=== PATIENT | female | born 1935 | race Caucasian/White ===

== ENCOUNTER 2017-02-27 21:34 | Emergency (ER) | payer MEDICARE, BC ==
[2017-02-27 21:40] VITALS: RESP 18
[2017-02-27] MEDS ORDERED: DIPH,PERTUS(ACELL)TETVAC-LF 0.5 ML VIAL IM ONE (22:36)
--- NOTE | 2017-02-27 22:37 | ED ---
General Adult HPI - General Chief complaint: Fall Stated complaint: Fall Time Seen by Provider: 02/27/17 22:07 Source: patient, family, RN notes reviewed Mode of arrival: EMS Limitations: no limitations - History of Present Illness Initial comments: Chief complaint history of present illness this 81-year-old female reports that she tripped over her cat at home. Falling on her face, no loss of consciousness mild nausea no vomiting. Mild frontal headache. She she did have epistaxis which eventually stopped on its own. - Related Data Home Medications Medication Instructions Recorded Confirmed Aspirin 81 mg PO DAILY 06/25/14 02/27/17 Atenolol [Tenormin] 25 mg PO DAILY 06/25/14 02/27/17 Atorvastatin [Lipitor] 40 mg PO HS 06/25/14 02/27/17 Budesonide-Formot 160-4.5 Mcg 2 puff INHALATION RT-DAILY 06/25/14 02/27/17 [Symbicort 160-4.5 Mcg Inhaler] Carisoprodol [Soma] 350 mg PO Q4-6H PRN 06/25/14 02/27/17 Dicyclomine [Bentyl] 10 mg PO BID PRN 06/25/14 02/27/17 Gabapentin [Neurontin] 300 mg PO QID 06/25/14 02/27/17 Isosorbide Mononitrate [Imdur] 30 mg PO DAILY 06/25/14 02/27/17 Lisinopril 40 mg PO DAILY 06/25/14 02/27/17 Multivitamins, Thera [Multivitamin 1 tab PO DAILY@1200 06/25/14 02/27/17 (formulary)] Prochlorperazine [Compazine] 5 mg PO Q8HR PRN 06/25/14 02/27/17 amLODIPine [Norvasc] 5 mg PO DAILY 06/25/14 02/27/17 Acetaminophen [Tylenol Arthritis] 1,300 mg PO Q8H PRN 06/24/16 02/27/17 Acetaminophen/Diphenhydramine 1 tab PO HS PRN 06/24/16 02/27/17 [Tylenol PM 500-25mg] Calcium Carbonate [Calcium] 600 mg PO DAILY 06/24/16 02/27/17 Cholecalciferol [Vitamin D3] 1,000 unit PO DAILY 06/24/16 02/27/17 Zolpidem Tartrate [Ambien] 5 mg PO HS 06/24/16 02/27/17 traMADol HCL [Ultram] 50 mg PO TID 06/24/16 02/27/17 Esomeprazole Magnesium [NexIUM] 20 mg PO DAILY 02/27/17 02/27/17 Allergies Allergy/AdvReac Type Severity Reaction Status Date / Time adhesive Allergy Unknown Verified 02/27/17 21:38 cephalexin Allergy Rash/Hives Verified 06/24/16 16:06 diphenhydramine HCl Allergy Unknown Verified 06/24/16 16:06 [From Benadryl] nickel Allergy Rash/Hives Verified 06/24/16 16:07 codeine AdvReac Nausea & Verified 06/24/16 16:06 Vomiting Penicillins AdvReac Itching Verified 06/24/16 16:06 Sulfa (Sulfonamide AdvReac Itching Verified 06/24/16 16:06 Antibiotics) Review of Systems ROS Statement: Those systems with pertinent positive or pertinent negative responses have been documented in the HPI. Review of systems mild neck discomfort she took her [place] collar off because is uncomfortable though. At this time not complaining of neck pain patient does have bruising to the nose epistaxis been controlled she does complain of mild forehead discomfort no visual acuity changes. Denying any chest pain shortness breath GI/ problems. All systems were reviewed. Past medical problems significant for angina, hyperlipidemia, hypertension, osteoarthritis, neuropathy. Her surgeries include breast surgery, hysterectomy tonsillectomy and partial thyroidectomy. ALLERGIES include adhesive, cephalexin , diphenhydramine, nickel, codeine, penicillins and sulfa. ROS Other: All systems not noted in ROS Statement are negative. Past Medical History Past Medical History: Chest Pain / Angina, Hyperlipidemia, Hypertension, Osteoarthritis (OA) Additional Past Medical History / Comment(s): neuropathy, hypoglycemia, BRONCHIALSPASMS, ULCERS ULCERATIVE COLITIS History of Any Multi-Drug Resistant Organisms: None Reported Past Surgical History: Breast Surgery, Hysterectomy, Tonsillectomy Additional Past Surgical History / Comment(s): partial thyroidectomy D/T BENIGN TUMOR, REMOVED BENIGN LUMP FROM RT BREAST , CATARACTS Past Anesthesia/Blood Transfusion Reactions: Motion Sickness Past Psychological History: Anxiety Additional Psychological History / Comment(s): XANAX Smoking Status: Former smoker Past Alcohol Use History: None Reported Additional Past Alcohol Use History / Comment(s): SMOKER 55 YEARS 3-4 CIG/DAY QUIT 2004 Past Drug Use History: None Reported - Past Family History Mother Family Medical History: No Reported History General Exam - General Exam Comments Initial Comments: General: The patient is awake and alert, in no distress, and does not appear acutely ill. Patient fell on her face after tripping over her cat. Vital signs temp 97.8 pulse 72 respiratory rate 18 pulse ox 90% room air blood pressure 166/92. Eye: Pupils are equal, round and reactive to light, extra-ocular movements are intact ; there is normal conjunctiva bilaterally. No signs of icterus. Slight ecchymosis under her left eye Ears, nose, mouth and throat: There are moist mucous membranes and no oral lesions. There does appear to be a septal hematoma on the right side of her nares. Neck: The neck is supple, there is no tenderness . She did have a fellow for collar placed but she removed it because it is uncomfortable. Cardiovascular: No chest wall pain, no complaint of palpitations. Respiratory: No complaint of respiratory distress no abdominal pain. Back: Chronic back pain no new injury or back pain. Musculoskeletal: Full range of motion upper and lower extremities without complaints of new pain. Neurological: No apparent neuro deficits. States she has neuropathy. Skin: No bruising noted this time Limitations: no limitations Course Vital Signs 02/27/17 21:35 Temperature 97.8 F Pulse Rate 72 Respiratory 18 Rate Blood Pressure 166/92 O2 Sat by Pulse 98 Oximetry Medical Decision Making - Medical Decision Making CT of the brain and cervical spine were done and reviewed by radiologist. The radiologist reports reviewed and the entirety final impression is no cranial hemorrhage or skull fracture. The report concerning the cervical spine was done and it 2 was reviewed by radiologist's impression is #1 degenerative changes without evidence of acute fracture. A 6 mm pulmonary nodule in the left upper lobe. Compared to prior studies available or consider follow-up chest CT. And #3 heterogeneous thyroid with a 10 mm hypodense left thyroid nodule. Consider follow-up ultrasound as indicated. As read by Dr. Reddy CT of the maxillofacial area was done without contrast. This was reviewed radiologist and there findings are nasal soft tissue swelling no fracture identified. As read by Dr. Reddy The patient and her daughter were informed of the findings concerning the thyroid nodule and pulmonary nodule both which need to be further investigated by patient and her family physician. Patient had an ice pack applied to her face. On reexamination does appears the patient may have a deviated septum secondary to the trauma. Disposition Clinical Impression: Fall, Contusion of face Disposition: HOME SELF-CARE Condition: Fair Instructions: Black Eye (ED), Contusion in Adults (ED) Additional Instructions: Continue with home pain medication. Use ice packs over the bridge of the nose and the eyes to minimize inflammation. Follow-up with your ENT within the week for evaluation of septal injury. Also follow-up with family physician concerning pulmonary nodule and thyroid nodule noted on CAT scans. Time of Disposition: 00:04
--- NOTE | 2017-02-27 23:13 | CT ---
EXAM: CT Maxillofacial Without Intravenous Contrast. CLINICAL HISTORY: Reason: Fell on face, suspect septal hematoma, nasal fract TECHNIQUE: Axial computed tomography images of the face without intravenous contrast. CTDI is 32.1 mGy and DLP is 583.7 mGy-cm This CT exam was performed using one or more of the following dose reduction techniques: automated exposure control, adjustment of the mA and/or kV according to patient size, and/or use of iterative reconstruction technique. COMPARISON: No relevant prior studies available. FINDINGS: Bones/joints: Nasal soft tissue swelling. No fracture identified. Soft tissues: See above. Orbits: Bilateral cataract surgery. Bilateral globes appear intact. No intraconal hemorrhage. Sinuses: Minimal bilateral maxillary sinus mucosal thickening. No air- fluid levels. IMPRESSION: Nasal soft tissue swelling. No fracture identified.
--- NOTE | 2017-02-27 23:49 | CT ---
EXAM: CT Head Without Intravenous Contrast. CLINICAL HISTORY: Reason: Patient fell onto her face. TECHNIQUE: Axial computed tomography images of the head/brain without intravenous contrast. CTDI is 60.30 mGy and DLP is 981.70 mGy-cm This CT exam was performed using one or more of the following dose reduction techniques: automated exposure control, adjustment of the mA and/or kV according to patient size, and/or use of iterative reconstruction technique. COMPARISON: No relevant prior studies available. FINDINGS: Brain: Involutional changes. Patchy white matter low attenuation may represent small vessel disease. No hemorrhage. No acute cortical infarct. No mass effect or midline shift. Ventricles: Unremarkable. Bones/joints: Unremarkable. No acute fracture. Soft tissues: Unremarkable. Sinuses: Unremarkable as visualized. Mastoid air cells: Unremarkable as visualized. IMPRESSION: No intracranial hemorrhage or skull fracture. EXAM: CT Cervical Spine Without Intravenous Contrast. CLINICAL HISTORY: Reason: Patient fell onto her face. TECHNIQUE: Axial computed tomography images of the cervical spine without intravenous contrast. CTDI is 18.20 mGy and DLP is 399.40 mGy-cm This CT exam was performed using one or more of the following dose reduction techniques: automated exposure control, adjustment of the mA and/or kV according to patient size, and/or use of iterative reconstruction technique. COMPARISON: No relevant prior studies available. FINDINGS: Vertebrae: Unremarkable. No acute fracture. Discs/spinal canal/neural foramina: Multilevel degenerative changes with varying degrees of central canal and neuroforaminal stenosis, most prominent at C4-C7. Soft tissues: Unremarkable. Thyroid: Heterogeneous thyroid with a 10 mm hypodense left thyroid nodule. Lung apices: A 6 mm pulmonary nodule in the left upper lobe. IMPRESSION: 1. Degenerative changes without evidence of acute fracture. 2. A 6 mm pulmonary nodule in the left upper lobe. Compare to prior studies if available or consider followup chest CT. Please refer to Fleischner Society recommendations. 3. Heterogeneous thyroid with a 10 mm hypodense left thyroid nodule. Consider followup ultrasound if indicated.
[2017-02-28 00:16] VITALS: BP 156/82; PULSE 86; TEMP 97.3
== END 2017-02-28 00:16 | disposition home or self-care (01) ==
LOC: EC 21:34
DX: S00.12XA Contusion of left eyelid and periocular area, initial encounter (principal); S00.33XA Contusion of nose, initial encounter; E78.5 Hyperlipidemia, unspecified; I10 Essential (primary) hypertension; M19.90 Unspecified osteoarthritis, unspecified site; G62.9 Polyneuropathy, unspecified; Z23 Encounter for immunization; Z87.891 Personal history of nicotine dependence; Z79.82 Long term (current) use of aspirin; Z79.899 Other long term (current) drug therapy; Z79.891 Long term (current) use of opiate analgesic; Z88.1 Allergy status to other antibiotic agents; Z88.0 Allergy status to penicillin; Z88.2 Allergy status to sulfonamides; Z91.048 Other nonmedicinal substance allergy status; Z88.5 Allergy status to narcotic agent; Z88.8 Allergy status to other drugs, medicaments and biological substances; W01.0XXA Fall on same level from slipping, tripping and stumbling without subsequent striking against object, initial encounter; Y92.009 Unspecified place in unspecified non-institutional (private) residence as the place of occurrence of the external cause
CPT/HCPCS: 70450; 70486; 72125; 90471; 90715; 99284

== ENCOUNTER → 2017-04-07 | Outpatient (CLI) | payer MEDICARE, BC ==
--- NOTE | 2017-04-07 17:42 | CT ---
EXAMINATION TYPE: CT chest wo con DATE OF EXAM: 04/07/2017 1:41 PM COMPARISON: 06/25/2014 HISTORY: 81-year-old female nonspecific abnormal finding of lung field TECHNIQUE: Contiguous axial scanning of the chest without IV contrast. Coronal and sagittal reconstru ctions performed. CT DLP: 638 mGycm Automated exposure control for dose reduction was used. FINDINGS: The heart is normal size with trace pericardial thickening/effusion. Extensive coronary vessel calcif ications are present in remarkable for coronary artery disease. Moderate atherosclerotic arch calcifications with conventional arch vessel branching anatomy. Ectasia of the aorta at the level of the diaphragmatic hiatus 2.6 cm. No thoracic lymphadenopathy. Evaluation of the lungs shows minimal biapical pleural parenchymal scarring. Very minimal occasional emphysematous cysts are noted. A couple calcified granulomas in the right lung. A 4 mm and adjacent 3 mm right middle lobe pulmonary nodule are unchanged from 2013 compatible with a benign etiology. 6 m m left upper lobe pulmonary nodule also unchanged from 2014 compatible with a benign etiology. There is mild diffuse bronchial wall thickening though not as pronounced as on 06/25/2014, possibly chr onic. Visualized upper abdomen shows cortical defects involving the upper pole left kidney suggestive of pr ior vascular or infectious insults. Bones: No osseous destructive process. IMPRESSION: 1. A COUPLE TINY CALCIFIED GRANULOMAS IN THE RIGHT LUNG AND STABLE PULMONARY NODULES MEASURING UP TO 6 MM COMPATIBLE WITH A BENIGN ETIOLOGY. 2. NO ACUTE PULMONARY PROCESS. 3. CORONARY ARTERY DISEASE.
== END | disposition home or self-care (01) ==
LOC: RADCTMAIN 13:12
PROVIDERS: ATTEND Family Medicine
DX: R91.8 Other nonspecific abnormal finding of lung field (principal); J84.10 Pulmonary fibrosis, unspecified; I25.10 Atherosclerotic heart disease of native coronary artery without angina pectoris
CPT/HCPCS: 71250

== ENCOUNTER → 2018-03-16 | Outpatient (CLI) | payer MEDICARE, BC ==
--- NOTE | 2018-03-16 09:43 | CT ---
EXAMINATION TYPE: CT chest w con DATE OF EXAM: 03/16/2018 COMPARISON: 04/07/2017 HISTORY: hemoptysis, lung nodule CT DLP: 298.3 mGycm Automated exposure control for dose reduction was used. CONTRAST: CT scan of the chest is performed with IV Contrast, patient injected with 80 mL of Isovue 300. FINDINGS: LUNGS: The lungs are grossly clear, there is no concerning parenchymal mass or nodule identified. T here is no pleural effusion or pneumothorax seen. The tracheobronchial tree is patent. MEDIASTINUM: There are no greater than 1 cm hilar or mediastinal lymph nodes. No pericardial effusi on is seen. Atheromatous and ectatic change of the thoracic aorta. The heart is enlarged. UPPER ABDOMEN: Hypoattenuating lesion posterior cortex left mid kidney measuring 1.4 cm. Small solid lesion is difficult to exclude. Parenchymal thinning upper pole left kidney. Additional hypoattenuati ng lesions nonspecific pole left kidney. Dedicated CT OTHER: No additional significant abnormality is seen. IMPRESSION: 1. No evidence for nodule or mass. 2. Nonspecific lesion left kidney. Further evaluation with ultrasound or dedicated CT may be of value .
--- NOTE | 2018-03-16 10:20 | US ---
EXAMINATION TYPE: US thyroid st tissue head/neck DATE OF EXAM: 03/16/2018 COMPARISON: Same-day CT chest study and older studies. CLINICAL HISTORY: E04.2 Goiter,R04.2 Hemoptysis. Patient states part of her thyroid was removed a floresita g time ago, cant remember what side or what was removed. History of nodules GLAND SIZE: Right Lobe: 4.3 x 1.1 x 0.9 cm Overall Parenchyma: heterogenous Left Lobe: 4.1 x 1.5 x 1.3 cm Overall Parenchyma: heterogeneous Isthmus Thickness: 0.2 cm NODULES RIGHT: # of nodules measured on right: 2 1. 0.4 X 0.2 x 0.5 cm hypoechoic mixed nodule at the mid pole with well-defined margins; . This no dule is wider than tall and shows no intranodular vascularity. Prior size: No previous 2. 0.5 X 0.3 x 0.4 cm hypoechoic solid nodule at the lower pole with well-defined margins; . This n odule is wider than tall and shows no intranodular vascularity. Prior size: No previous LEFT: # of nodules measured on left: 2 1. 0.6 X 0.4 x 0.6 cm hypoechoic solid nodule at the upper pole with well-defined margins; . This nodule is wider than tall and shows intranodular vascularity. Prior size:L No previous 2. 0.2 X 0.3 x 0.4 cm hypoechoic cystic nodule at the lower pole with well-defined margins; . This nodule is wider than tall and shows no intranodular vascularity. Prior size: No previous ISTHMUS: # of nodules measured in the isthmus: 0 Multiple subcentimeter nodules visualized bilaterally. Bilateral neck scanned, no evidence of lymphad enopathy. The thyroid gland gland is overall normal in size and heterogeneous in appearance with few scattered small nodules marked by technologist. IMPRESSION: Normal size heterogeneous thyroid with scattered small nodules, no suspicious greater than 1 cm solid or cystic nodules are present.
== END | disposition home or self-care (01) ==
LOC: RADUSMAIN 08:08
PROVIDERS: ATTEND Family Medicine
DX: E04.2 Nontoxic multinodular goiter (principal); R04.2 Hemoptysis
CPT/HCPCS: 82565; 84520; 76536; 71260; 36415; Q9967

== ENCOUNTER → 2018-04-10 | Outpatient (CLI) | payer MEDICARE, BC ==
--- NOTE | 2018-04-10 13:51 | US ---
EXAMINATION TYPE: US kidneys/renal and bladder DATE OF EXAM: 04/10/2018 COMPARISON: CT chest 03/16/2018. US abdomen 08/17/2016 CLINICAL HISTORY: N28.9 Disorder of kidney and ureter, unspecified. EXAM MEASUREMENTS: Right Kidney: 9.6 x 5.4 x 5.0 cm Left Kidney: 10.0 x 4.0 x 4.3 cm Right Kidney: No hydronephrosis. Two cystic areas visualized, largest lower pole measuring 1.2 x 1.2 x 1.2 cm. Corticomedullary thinning Left Kidney: No hydronephrosis. Multiple cystic areas visualized, largest measuring 1.2 x 1.3 x 1.4 c m. Corticomedullary thinning Bladder: wnl as visualized Bilateral Jets seen: Yes IMPRESSION: 1. Simple appearing bilateral renal cysts. 2. Cortical thinning bilaterally. Correlate for chronic renal failure.
== END | disposition home or self-care (01) ==
LOC: RADUSWWP 12:38
PROVIDERS: ATTEND Family Medicine
DX: N28.1 Cyst of kidney, acquired (principal)
CPT/HCPCS: 76770

== ENCOUNTER → 2019-04-19 | Outpatient (CLI) | payer MEDICARE, BC ==
--- NOTE | 2019-04-19 10:39 | US ---
EXAMINATION TYPE: US thyroid st tissue head/neck DATE OF EXAM: 04/19/2019 COMPARISON: US 2018 CLINICAL HISTORY: E04.2 MULTINODULAR GOITER. GLAND SIZE: Right Lobe: 4.3 x 1.7 x 1.4 cm Overall Parenchyma: heterogenous Left Lobe: 4.8 x 1.6 x 1.6 cm Overall Parenchyma: heterogeneous Isthmus Thickness: 0.2 cm NODULES RIGHT: # of nodules measured on right: 2 1. 0.5 X 0.4 x 0.5 cm hypoechoic mixed nodule at the mid pole with poorly defined margins; . This nodule is wider than tall and shows intranodular vascularity. Prior size: 0.4 x 0.2 x 0.4 cm 2. 0.5 X 0.3 x 0.5 cm hypoechoic mixed nodule at the mid pole with well-defined margins; . This nod ule is wider than tall and shows intranodular vascularity. Prior size: 0.5 x 0.4 x 0.3 cm LEFT: # of nodules measured on left: 2 1. 1.1 X 0.4 x 0.8 cm hypoechoic solid nodule at the upper pole with well-defined margins; . This nodule is wider than tall and shows intranodular vascularity. Prior size: 0.6 x 0.4 x 0.6 cm 2. 0.6 X 0.3 x 0.6 cm hypoechoic solid nodule at the mid pole with well-defined margins; . This nod ule is wider than tall and shows intranodular vascularity. Prior size: not seen on prior ISTHMUS: # of nodules measured in the isthmus: 0 Bilateral neck scanned, no evidence of lymphadenopathy. Redemonstration of heterogeneous normal-sized thyroid with scattered small nodules, largest nodule up per pole level. Slightly larger on long axis. Would still advise ultrasound follow-up over concepcion hayes patient's age and finding of multiple nodules. IMPRESSION: As above
--- NOTE | 2019-04-23 09:48 | MM ---
Reason for exam: screening (asymptomatic). Last mammogram was performed 2 years and 7 months ago. History: Patient is postmenopausal. Excisional biopsy of the right breast, 2003. Physical Findings: A clinical breast exam by your physician is recommended on an annual basis and results should be correlated with mammographic findings. MG 3D Screening Mammo W/Cad Bilateral CC and MLO view(s) were taken. Prior study comparison: October 04, 2016, mammogram, performed at [facility]. April 06, 2015, mammogram, performed at [facility]. There are scattered fibroglandular densities. Benign appearing bilateral calcifications. No significant changes when compared with prior studies. ASSESSMENT: Benign, BI-RAD 2 RECOMMENDATION: Routine screening mammogram of both breasts in 1 year.
== END | disposition home or self-care (01) ==
LOC: RADMAMWWP 08:58
PROVIDERS: ATTEND Family Medicine
DX: Z12.31 Encounter for screening mammogram for malignant neoplasm of breast (principal); E04.2 Nontoxic multinodular goiter
CPT/HCPCS: 76536; 77063; 77067

== ENCOUNTER → 2019-12-16 | Outpatient (CLI) | payer MEDICARE, BC ==
--- NOTE | 2019-12-16 15:23 | US ---
EXAMINATION TYPE: US venous doppler duplex UE LT DATE OF EXAM: 12/16/2019 COMPARISON: NONE CLINICAL HISTORY: left upper extremity pain, M79.602. SIDE PERFORMED: left Grayscale, color doppler, spectral doppler imaging performed of the deep veins of the left upper extr emity. There is normal flow, compressibility and vascular waveforms. Left Arm: Negative for DVT IMPRESSION: No sonographic evidence of deep venous thrombosis within the left upper extremity.
== END | disposition home or self-care (01) ==
LOC: RADUSWWP 12:32
PROVIDERS: ATTEND Family Medicine
DX: M79.602 Pain in left arm (principal)

== ENCOUNTER → 2020-05-04 | Day surgery (SDC) | payer MEDICARE, BC ==
[2020-05-01 09:19] VITALS: BMI 29.7
[~2020-05-04] MED LIST: ALPRAZolam 0.25 MG TAB PO PRN; ALPRAZolam 0.5 MG TAB PO PRN; ASPIRIN 325 MG TAB PO STA; ASPIRIN 81 MG ONE; ATORVASTATIN 80 MG TAB PO STA; IOPAMIDOL-370 125ML BTL INJ ONE; LIDOCAINE 1% INJ 10MG/ML (20 ML MDV) ONE; LIDOCAINE 1% INJ 10MG/ML (20 ML MDV) SQ ONE; MIDAZOLAM 2 MG/2 ML VIAL IV ONE; NITROGLYCERIN SL TABS 0.4 MG TAB SUBLINGUAL PRN; RX INFO: IV CONTRAST WAS GIVEN 1 EACH MISC MISCELLANE PRN; SODIUM CHLORIDE 0.9% 1,000 ML IV SCH; SODIUM CHLORIDE 0.9% 1,000 ML in EMPTY BAG 1 BAG IV ONE; VERAPAMIL 2.5 MG/ML 2 ML AMP ONE; hydrALAZINE HCL 20 MG/ML 1 ML VIAL IVP STA; tiZANidine 4 MG TAB PO PRN; tiZANidine 4 MG TAB PO SCH
[2020-05-04 06:27] VITALS: RESP 18; TEMP 98.7
[2020-05-04 14:45] VITALS: BP 128/60; PULSE 72
--- NOTE | 2020-05-04 16:05 | CC ---
CARDIAC CATHETERIZATION REPORT DATE OF SERVICE: 05/04/2020 PERFORMING PHYSICIAN: Deondre Leos MD. PROCEDURE PERFORMED: 1. Selective right and left coronary angiogram. 2. Gradient measurement across the right iliac artery. 3. Selective right external and right common iliac artery angiogram. INDICATION: This is an 84-year-old female patient who was experiencing symptoms of chest discomfort and shortness of breath with exertion concerning for severe underlying coronary artery disease. She refused to undergo a stress test and because of that, a heart catheterization was advised. APPROACH: Right common femoral artery. COMPLICATION: None. LEVEL OF SEDATION: Moderate with sedation length of 15 minutes. PROCEDURE DESCRIPTION: After obtaining an informed consent, the patient was brought to the cardiac test lab technician. The right common femoral artery was cannulated using micropuncture technique, the micropuncture wire passed easily, then I placed a 6-Telugu sheath at the right common femoral artery. Selective right and left coronary angiogram were performed. I struggle advancing the J- wire across the right common iliac artery and I was able to cross it using an 0.035 J- wire. After that, after using a 0.035 glide wire. Subsequently I did selective right and left coronary angiogram using JR4 and JL4 catheters. Left heart catheterization was not performed. Because of the diminished pulse and the difficulty crossing the right common iliac artery, I did gradient measurement across it and also I did selective iliac angiogram. The procedure was completed without any complication. SELECTIVE CORONARY ANGIOGRAM: 1. The right coronary artery is a moderate caliber vessel and is a codominant vessel. The RCA is angiographically normal. 2. The left main is angiographically normal, it bifurcates into LCX and LAD. 3. The LCX is a large caliber vessel and is a codominant vessel. The LCX has mild disease only. In the midportion, it gives rise into an OM1 which is a tortuous but angiographically normal and distally gives rise into PDA, which seems to be angiographically normal. 4. The LAD is a large caliber vessel. The LAD has mild disease only, the midportion gives rise into a large diagonal branch which seems to be angiographically normal. 5. The gradient measurement across the right common iliac artery. 6. The gradient measurement was performed and came into be around 27 mm Hg. 7. Selective right common and right external iliac artery angiogram. The selective right common and right external arteries angiogram were performed using DSA. There was intermediate to severe lesion involving the right common iliac artery just after the bifurcation. CONCLUSION: 1. Calcified right and left coronary systems. 2. Mild nonobstructive coronary artery disease. 3. Severe disease involving the right common iliac artery. POSTPROCEDURE MANAGEMENT: 1. The patient is going to be discharged home today. 2. I will discuss with the patient the need to do an aortogram with runoff and possible CREATIVE WRITER of the right common iliac artery, if she is symptomatic. MMODL / IJN: [id number] /
--- NOTE | 2020-05-04 16:12 | LTR ---
DATE OF SERVICE: 05/04/2020 RE: Elise Garza Dear Dr. Jang. Ms. Elise Beltran underwent today heart catheterization and that revealed mild nonobstructive coronary artery disease. I want to thank you for allowing us to participate in her care and please do not hesitate to call if you have any question or concerns. Sincerely, Deondre Leos MD MMJOSE MIGUELL / BRIGIDAN: [id number] /
== END ==
LOC: CATHCVL 05:59
PROVIDERS: ATTEND Internal Medicine Interventional Cardiology
DX: I25.110 Atherosclerotic heart disease of native coronary artery with unstable angina pectoris (principal); I77.1 Stricture of artery; R07.89 Other chest pain; R06.02 Shortness of breath; R60.0 Localized edema; I10 Essential (primary) hypertension; E78.00 Pure hypercholesterolemia, unspecified; E78.5 Hyperlipidemia, unspecified; Z79.82 Long term (current) use of aspirin; Z79.899 Other long term (current) drug therapy; Z79.51 Long term (current) use of inhaled steroids; Z88.0 Allergy status to penicillin; Z88.1 Allergy status to other antibiotic agents; Z88.2 Allergy status to sulfonamides; Z88.5 Allergy status to narcotic agent; Z88.8 Allergy status to other drugs, medicaments and biological substances; Z82.49 Family history of ischemic heart disease and other diseases of the circulatory system
CPT/HCPCS: 93454; C1769 ×5; C1894 ×2; J2250; J2001; Q9967

== ENCOUNTER 2020-08-03 09:39 | Inpatient (IN) | payer MEDICARE, BC ==
[2020-08-03] MEDS ORDERED: SODIUM CHLORIDE 0.9% 500 ML 500 ML IV STA ×2 (10:07→11:59)
--- NOTE | 2020-08-03 10:17 | ED ---
General Adult HPI - General Chief complaint: Weakness Stated complaint: Fever/weakness Time Seen by Provider: 08/03/20 09:46 Source: patient, RN notes reviewed Mode of arrival: wheelchair Limitations: no limitations - History of Present Illness Initial comments: 84-year-old female with a past medical history of GERD, hyperlipidemia, hypertension, pneumonia, ulcerative colitis presents to the emergency department for several complaints. Patient reports that for the past week she has had fevers on and off up to 101.4. States that she has had a cough and shortness of breath associated with this. She denies any chest pain. She denies any rhinorrhea, sore throat, congestion, or ear pain. Patient also admits to some diarrhea and cramping abdominal pain. Denies nausea vomiting. She does state that she is getting more weak throughout the week. Patient lives in an assisted living center. The patient is unsure of any covid exposures.Patient has no other complaints at this time including chest pain, abdominal pain, nausea or vomiting, headache, or visual changes. - Related Data Home Medications Medication Instructions Recorded Confirmed Atorvastatin [Lipitor] 40 mg PO HS 06/25/14 08/03/20 Budesonide-Formot 160-4.5 Mcg 2 puff INHALATION RT-DAILY 06/25/14 08/03/20 [Symbicort 160-4.5 Mcg Inhaler] Dicyclomine [Bentyl] 10 mg PO DAILY PRN 06/25/14 08/03/20 Gabapentin [Neurontin] 300 - 600 mg PO Q6H 06/25/14 08/03/20 Isosorbide Mononitrate [Imdur] 30 mg PO DAILY@1400 06/25/14 08/03/20 Multivitamins, Thera [Multivitamin 1 tab PO DAILY 06/25/14 08/03/20 (formulary)] amLODIPine [Norvasc] 5 mg PO DAILY 06/25/14 08/03/20 atenoloL [Tenormin] 25 mg PO DAILY 06/25/14 08/03/20 lisinopriL 40 mg PO DAILY@1400 06/25/14 08/03/20 Acetaminophen [Tylenol Arthritis] 650 - 1,300 mg PO BID 06/24/16 08/03/20 Acetaminophen/Diphenhydramine 1 tab PO HS 06/24/16 08/03/20 [Tylenol PM 500-25mg] Cholecalciferol [Vitamin D3 (25 1,000 unit PO DAILY 06/24/16 08/03/20 Mcg = 1000 Iu)] Zolpidem Tartrate [Ambien] 5 mg PO HS 06/24/16 08/03/20 traMADol HCL [Ultram] 50 mg PO QID 06/24/16 08/03/20 Esomeprazole Magnesium [NexIUM] 20 mg PO DAILY 02/27/17 08/03/20 Cyanocobalamin (Vitamin B-12) 1,000 mcg PO DAILY 05/01/20 08/03/20 [Vitamin B-12] Nitroglycerin [place](Dose Unknown) 1 spray PO DIRECTED PRN 05/01/20 08/03/20 Prochlorperazine [Compazine] 5 mg PO Q8HR PRN 05/01/20 08/03/20 tiZANidine [Zanaflex] 2 mg PO Q6HR PRN 05/01/20 08/03/20 Aspirin 81 mg PO DAILY 05/04/20 08/03/20 Albuterol Sulfate [Ventolin HFA] 1 - 2 puff INHALATION RT-Q6H PRN 08/03/20 08/03/20 Docusate [Colace] 100 mg PO HS 08/03/20 08/03/20 Magnesium Hydroxide [Milk of 1,200 mg PO HS 08/03/20 08/03/20 Magnesia] Nystatin [Nystop] 1 applic TOPICAL TID PRN 08/03/20 08/03/20 Allergies Allergy/AdvReac Type Severity Reaction Status Date / Time adhesive Allergy developed Verified 08/03/20 10:18 black lump cephalexin Allergy Rash/Hives Verified 08/03/20 10:18 diphenhydramine HCl Allergy Unknown Verified 08/03/20 10:18 [From Benadryl] ibuprofen Allergy Unknown Verified 08/03/20 10:18 nickel Allergy Rash/Hives Verified 08/03/20 10:18 codeine AdvReac Nausea & Verified 08/03/20 10:18 Vomiting Penicillins AdvReac Itching Verified 08/03/20 10:18 Sulfa (Sulfonamide AdvReac Itching Verified 08/03/20 10:18 Antibiotics) Review of Systems ROS Statement: Those systems with pertinent positive or pertinent negative responses have been documented in the HPI. ROS Other: All systems not noted in ROS Statement are negative. 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 History of Any Multi-Drug Resistant Organisms: None Reported Past Surgical History: Breast Surgery, Hysterectomy, Tonsillectomy Additional Past Surgical History / Comment(s): partial thyroidectomy/benign nodules removed, rt breast lumpectomy-benign , margarito CATARACTS Past Anesthesia/Blood Transfusion Reactions: Motion Sickness Past Psychological History: Anxiety Smoking Status: Former smoker Past Alcohol Use History: Rare Past Drug Use History: None Reported - Past Family History Daughter(s) Family Medical History: Cancer General Exam Limitations: no limitations General appearance: alert, in no apparent distress Head exam: Present: atraumatic, normocephalic, normal inspection Eye exam: Present: normal appearance, PERRL, EOMI. Absent: scleral icterus, conjunctival injection, periorbital swelling ENT exam: Present: normal exam, normal oropharynx, mucous membranes moist, TM's normal bilaterally, normal external ear exam Neck exam: Present: normal inspection, full ROM. Absent: tenderness, meningism us, lymphadenopathy Respiratory exam: Present: normal lung sounds bilaterally. Absent: respiratory distress, wheezes, rales, rhonchi, stridor Cardiovascular Exam: Present: regular rate, normal rhythm, normal heart sounds. Absent: systolic murmur, diastolic murmur, rubs, gallop, clicks GI/Abdominal exam: Present: soft, normal bowel sounds. Absent: distended, tenderness, guarding, rebound, rigid Back exam: Absent: CVA tenderness (R), CVA tenderness (L) Neurological exam: Present: alert Course Vital Signs 08/03/20 08/03/20 08/03/20 09:42 12:15 12:56 Temperature 98.8 F Pulse Rate 111 H 101 H Respiratory 18 18 Rate Blood Pressure 138/89 135/74 O2 Sat by Pulse 95 96 87 L Oximetry Medical Decision Making - Medical Decision Making She presents initially tachycardic. She is stating she feels very weak. Physical exam is unremarkable. She has some minimal lower abdominal tenderness however no guarding or rebound. CBC unremarkable. CMP does show evidence of dehydration, patient was given fluids. She does have a UTI, treated with Leva clara given her ALLERGIES. D-dimer is elevated, CT angio was ordered which was negative. However patient is short of breath and desatting on ambulation to the bathroom down to the 80s. At this time there is concern for covert given a CRP of 153, shortness of breath, cough, and history of fevers. Patient will be kept in isolation precaution. Will be admitted. Dr. Crow spoke with Dr. Platt - Lab Data Result diagrams: 08/03/20 10:24 08/03/20 10:24 Lab Results 08/03/20 08/03/20 08/03/20 Range/Units 10:24 10:24 10:24 WBC 6.2 (3.8-10.6) k/uL RBC 4.64 (3.80-5.40) m/uL Hgb 12.7 (11.4-16.0) gm/dL Hct 40.3 (34.0-46.0) % MCV 86.7 (80.0-100.0) fL MCH 27.3 (25.0-35.0) pg MCHC 31.5 (31.0-37.0) g/dL RDW 16.2 H (11.5-15.5) % Plt Count 295 (150-450) k/uL Neutrophils % 82 % Lymphocytes % 7 % Monocytes % 6 % Eosinophils % 3 % Basophils % 0 % Neutrophils # 5.1 (1.3-7.7) k/uL Lymphocytes # 0.4 L (1.0-4.8) k/uL Monocytes # 0.4 (0-1.0) k/uL Eosinophils # 0.2 (0-0.7) k/uL Basophils # 0.0 (0-0.2) k/uL Hypochromasia Slight Anisocytosis Slight PT 10.0 (9.0-12.0) sec INR 1.0 (<1.2) APTT 27.2 (22.0-30.0) sec D-Dimer 0.72 H (<0.60) mg/L FEU Sodium (137-145) mmol/L Potassium (3.5-5.1) mmol/L Chloride (98-107) mmol/L Carbon Dioxide (22-30) mmol/L Anion Gap mmol/L BUN (7-17) mg/dL Creatinine (0.52-1.04) mg/dL Est GFR (CKD-EPI)AfAm (>60 ml/min/1.73 sqM) Est GFR (CKD-EPI)NonAf (>60 ml/min/1.73 sqM) Glucose (74-99) mg/dL Plasma Lactic Acid [place] (0.7-2.0) mmol/L Calcium (8.4-10.2) mg/dL Magnesium (1.6-2.3) mg/dL Total Bilirubin (0.2-1.3) mg/dL AST (14-36) U/L ALT (4-34) U/L Alkaline Phosphatase (38-126) U/L Lactate Dehydrogenase (313-618) U/L Troponin I (0.000-0.034) ng/mL C-Reactive Protein (<10.0) mg/L Total Protein (6.3-8.2) g/dL Albumin (3.5-5.0) g/dL Urine Color Yellow Urine Appearance Cloudy H (Clear) Urine pH 6.0 (5.0-8.0) Ur Specific [place] 1.025 (1.001-1.035) Urine Protein Trace H (Negative) Urine Glucose (UA) Negative (Negative) Urine Ketones Negative (Negative) Urine Blood Negative (Negative) Urine Nitrite Negative (Negative) Urine Bilirubin Negative (Negative) Urine Urobilinogen <2.0 (<2.0) mg/dL Ur Leukocyte Esterase Large H (Negative) Urine RBC 10 H (0-5) /hpf Urine WBC 40 H (0-5) /hpf Ur Squamous Epith Cells 7 H (0-4) /hpf Urine Bacteria Occasional H (None) /hpf Urine Mucus Occasional H (None) /hpf 08/03/20 08/03/20 08/03/20 Range/Units 10:24 10:24 10:24 WBC (3.8-10.6) k/uL RBC (3.80-5.40) m/uL Hgb (11.4-16.0) gm/dL Hct (34.0-46.0) % MCV (80.0-100.0) fL MCH (25.0-35.0) pg MCHC (31.0-37.0) g/dL RDW (11.5-15.5) % Plt Count (150-450) k/uL Neutrophils % % Lymphocytes % % Monocytes % % Eosinophils % % Basophils % % Neutrophils # (1.3-7.7) k/uL Lymphocytes # (1.0-4.8) k/uL Monocytes # (0-1.0) k/uL Eosinophils # (0-0.7) k/uL Basophils # (0-0.2) k/uL Hypochromasia Anisocytosis PT (9.0-12.0) sec INR (<1.2) APTT (22.0-30.0) sec D-Dimer (<0.60) mg/L FEU Sodium 139 (137-145) mmol/L Potassium 4.5 (3.5-5.1) mmol/L Chloride 104 (98-107) mmol/L Carbon Dioxide 28 (22-30) mmol/L Anion Gap 7 mmol/L BUN 41 H (7-17) mg/dL Creatinine 0.95 (0.52-1.04) mg/dL Est GFR (CKD-EPI)AfAm 64 (>60 ml/min/1.73 sqM) Est GFR (CKD-EPI)NonAf 56 (>60 ml/min/1.73 sqM) Glucose 141 H (74-99) mg/dL Plasma Lactic Acid [place] 1.6 (0.7-2.0) mmol/L Calcium 10.4 H (8.4-10.2) mg/dL Magnesium 2.1 (1.6-2.3) mg/dL Total Bilirubin 0.4 (0.2-1.3) mg/dL AST 31 (14-36) U/L ALT 34 (4-34) U/L Alkaline Phosphatase 138 H (38-126) U/L Lactate Dehydrogenase 497 (313-618) U/L Troponin I <0.012 (0.000-0.034) ng/mL C-Reactive Protein 153.5 H (<10.0) mg/L Total Protein 6.6 (6.3-8.2) g/dL Albumin 3.6 (3.5-5.0) g/dL Urine Color Urine Appearance (Clear) Urine pH (5.0-8.0) Ur Specific [place] (1.001-1.035) Urine Protein (Negative) Urine Glucose (UA) (Negative) Urine Ketones (Negative) Urine Blood (Negative) Urine Nitrite (Negative) Urine Bilirubin (Negative) Urine Urobilinogen (<2.0) mg/dL Ur Leukocyte Esterase (Negative) Urine RBC (0-5) /hpf Urine WBC (0-5) /hpf Ur Squamous Epith Cells (0-4) /hpf Urine Bacteria (None) /hpf Urine Mucus (None) /hpf Disposition Clinical Impression: Shortness of breath, Cough, History of fever Disposition: ADMITTED IP TO THIS HOSP Is patient prescribed a controlled substance at d/c from ED?: No Referrals: Cheyanne Garcia III, MD [Primary Care Provider] - 1-2 days Time of Disposition: 13:28
[2020-08-03 11:00] LABS: Appearance,Urine Cloudy (Clear); Bacteria,Urine Occasional /hpf; Bilirubin,Urine Negative (Negative); Blood,Urine Negative (Negative); Color,Urine Yellow; Glucose,Urine (UA) Negative (Negative); Ketones,Urine Negative (Negative); Leukocyte Esterase,Urine Large (Negative); Mucus,Urine Occasional /hpf; Nitrite,Urine Negative (Negative); Protein,Urine Trace (Negative); RBC,Urine 10 /hpf (0-5); Specific Gravity,Urine 1.025 (1.001-1.035); Squamous Epithelial Cell,Urine 7 /hpf (0-4); Urobilinogen,Urine <2.0 mg/dL (<2.0); WBC,Urine 40 /hpf (0-5)
[2020-08-03 11:02] LABS: Anisocytosis Slight; Basophils % (A) 0 %; Eosinophils # (A) 0.2 k/uL (0-0.7); Eosinophils % (A) 3 %; HCT 40.3 % (34.0-46.0); HGB 12.7 gm/dL (11.4-16.0); Hypochromasia Slight; Lymphocytes # (A) 0.4 k/uL (1.0-4.8); Lymphocytes % (A) 7 %; MCH 27.3 pg (25.0-35.0); MCHC 31.5 g/dL (31.0-37.0); MCV 86.7 fL (80.0-100.0); Monocytes # (A) 0.4 k/uL (0-1.0); Monocytes % (A) 6 %; Neutrophils # (A) 5.1 k/uL (1.3-7.7); Neutrophils % (A) 82 %; Platelet Count 295 k/uL (150-450); RBC 4.64 m/uL (3.80-5.40); RDW 16.2 % (11.5-15.5); WBC 6.2 k/uL (3.8-10.6)
--- NOTE | 2020-08-03 11:13 | XR ---
EXAMINATION TYPE: XR chest 2V DATE OF EXAM: 08/03/2020 COMPARISON: Chest x-ray June 25, 2014. CT chest March 16, 2018. HISTORY: Fever weakness and cough. TECHNIQUE: Frontal and lateral views of the chest are obtained. FINDINGS: There is chronic parenchymal changes bilaterally without suspicious focal air space opacity, pleural effusion, or pneumothorax seen. The cardiac silhouette size is stab le and mildly enlarged with atherosclerotic thoracic aorta. The osseous structures remain demineral ized. Overlying EKG leads are on the current study. IMPRESSION: Chronic changes without new suspicious acute pulmonary process.
[2020-08-03 11:17] LABS: Albumin 3.6 g/dL (3.5-5.0); Calcium 10.4 mg/dL (8.4-10.2); Magnesium 2.1 mg/dL (1.6-2.3); Potassium 4.5 mmol/L (3.5-5.1); Total Bilirubin 0.4 mg/dL (0.2-1.3); Total Protein 6.6 g/dL (6.3-8.2)
[2020-08-03 11:39] LABS: Partial Thromboplastin Time 27.2 sec (22.0-30.0)
[2020-08-03 11:40] LABS: D-Dimer 0.72 mg/L FEU (<0.60)
[2020-08-03] MEDS ORDERED: LEVOFLOXACIN 750MG-D5W PMX 750 MG in DEXTROSE/WATER 1 150ML.BAG IVPB STA (11:48)
[2020-08-03 11:57] LABS: C Reactive Protein 153.5 mg/L (<10.0)
--- NOTE | 2020-08-03 12:41 | CT ---
EXAMINATION TYPE: CT chest angio for PE DATE OF EXAM: 08/03/2020 COMPARISON: 03/16/2018 HISTORY: cough, congestion, fatigue, difficulty breathing CT DLP: 412 mGycm CONTRAST: CT chest with contrast and 3D reconstruction with MIP imaging is performed with IV Contrast, patient injected with 80 mL of Isovue 370. Contrast-enhanced CT of the chest was performed through the course of the pulmonary arteries with melanie g and mediastinal window settings submitted. 3D reconstruction with MIP imaging was also performed. PULMONARY ARTERIES: The pulmonary arteries and their major tributaries are patent. I do not see dontae dence for sizable filling defect to suggest pulmonary embolic process. LUNGS: The lungs are clear and free of infiltrate. Mild basilar dependent atelectasis. No pulmonary n odule or mass is detected. No pleural effusion. MEDIASTINUM: Atheromatous change of the thoracic aorta. No evidence for aneurysm. The heart is enlarg ed. No evidence for mediastinal mass. No mediastinal lymph nodes greater than 1cm. HILAR STRUCTURES: No evidence for mass. No hilar lymph nodes greater than 1 cm. UPPER ABDOMEN: No significant abnormality is seen. IMPRESSION: 1. No evidence for Pulmonary embolism at this time.
[2020-08-03] MEDS ORDERED: NALOXONE 0.4 MG/ML 1 ML VIAL IV PRN (13:53)
[2020-08-03] MEDS ORDERED: NYSTATIN 100,000 UNIT/GM POWD 15 GM TOPICAL PRN (13:54)
[2020-08-03] MEDS ORDERED: ALBUTEROL HFA INHALER INHALATION PRN (13:54)
[2020-08-03] MEDS: GABAPENTIN 300 MG CAP PO SCH ×2 (14:33→21:10)
[2020-08-03] MEDS: ISOSORBIDE MONONITRATE ER 30 MG TAB.ER.24H PO SCH (14:33)
[2020-08-03] MEDS: traMADol 50 MG TAB PO PRN (14:33)
[2020-08-03] MEDS: lisinopriL 20 MG TAB PO SCH (14:33)
--- NOTE | 2020-08-03 14:45 | P.HPIM ---
History of Present Illness 84-year-old pleasant female is being admitted for hypoxemia patient is found to have saturations of around 86% patient had complains of fever going on and off and highest temperature being 101.4 for about a week. Patient denied any sick and body aches. Patient was also complaining of shortness of breath and cough without any sputum production. Patient had a computed tomography scan of the chest which did not show any PE had a lobar infiltrate but there is very mild nonspecific infiltrate in theright lower lung lugo. Patient was given a dose oflevofloxacin because of abnormal urine which appeared to be contaminated urine sample although does have white blood cell count and large leukocyte esterase did has, sepsis results as well. Covid 19 testing was ordered as well.patient denied orthopnea or paroxysmal nocturnal dyspnea. Patient does have mild hypercalcemia Review of Systems REVIEW OF SYSTEMS: CONSTITUTIONAL: no malaise, no fatigue. HEENT: No recent visual problems or hearing problems. Denied any sore throat. CARDIOVASCULAR: No chest pain, orthopnea, PND, no palpitations, no syncope. PULMONARY: no hemoptysis. GASTROINTESTINAL: No diarrhea, no nausea, no vomiting, no abdominal pain. NEUROLOGICAL: No headaches, no weakness, no numbness. HEMATOLOGICAL: Denies any bleeding or petechiae. GENITOURINARY: Denies any burning micturition, frequency, or urgency. MUSCULOSKELETAL/RHEUMATOLOGICAL: Denies any joint pain, swelling, or any muscle pain. ENDOCRINE: Denies any polyuria or polydipsia. The rest of the 14-point review of systems is negative. Past Medical History Past Medical History: Asthma, Chest Pain / Angina, GERD/Reflux, Hyperlipidemia, Hypertension, Osteoarthritis (OA), Pneumonia, Thyroid Disorder Additional Past Medical History / Comment(s): Palpitations, murmur, sinus tach many years ago, bronchospasms, black mold exposure years ago, gastric ulcer, hiatal hernia, ulcerative colitis, diverticular disease, constipation, hypoglycemia, benign thyroid nodules/partial thyroidectomy, "aortic and R groin blockages", occasional bilateral pedal edema, L shoulder pain/adhesive capsulitis/decreased ROM/ L arm neuropathy, chronic low back pain History of Any Multi-Drug Resistant Organisms: None Reported Past Surgical History: Breast Surgery, Heart Catheterization, Hysterectomy, Tonsillectomy Additional Past Surgical History / Comment(s): EGD, colonoscopy, partial thyroidectomy, R breast benign lumpectomy, bilateral cataracts removed/lens implants, 04/2020 cardiac cath-treated medically. Past Anesthesia/Blood Transfusion Reactions: Motion Sickness Additional Past Anesthesia/Blood Transfusion Reaction / Comment(s): Pt received blood with childbirth many years ago without reaction. Past Psychological History: Anxiety Additional Psychological History / Comment(s): Pt resides alone in an apartment at [facility]. She uses a cane. She no longer drives, her silvina drives her to app[employer]odonation. She is otherwise independent. Smoking Status: Former smoker Past Alcohol Use History: Rare Additional Past Alcohol Use History / Comment(s): Pt started smoking in 1951 and quit in 2004. she was a light smoker, 3 cigarettes a day. Past Drug Use History: None Reported - Past Family History Daughter(s) Family Medical History: Cancer Father Family Medical History: Diabetes Mellitus Additional Family Medical History / Comment(s): Father developed blindness. Mother Family Medical History: Myocardial Infarction (NV) Additional Family Medical History / Comment(s): Mother had her first NV at the age of 35-40 yrs old. Son(s) Family Medical History: Coronary Artery Disease (CAD), Myocardial Infarction (NV) Additional Family Medical History / Comment(s): Son has multiple cardiac stents/CABG and had his first NV in his 40s. Medications and Allergies Home Medications Medication Instructions Recorded Confirmed Type Atorvastatin [Lipitor] 40 mg PO HS 06/25/14 08/03/20 History Budesonide-Formot 160-4.5 Mcg 2 puff INHALATION RT-DAILY 06/25/14 08/03/20 History [Symbicort 160-4.5 Mcg Inhaler] Dicyclomine [Bentyl] 10 mg PO DAILY PRN 06/25/14 08/03/20 History Gabapentin [Neurontin] 300 - 600 mg PO Q6H 06/25/14 08/03/20 History Isosorbide Mononitrate [Imdur] 30 mg PO DAILY@1400 06/25/14 08/03/20 History Multivitamins, Thera [Multivitamin 1 tab PO DAILY 06/25/14 08/03/20 History (formulary)] amLODIPine [Norvasc] 5 mg PO DAILY 06/25/14 08/03/20 History atenoloL [Tenormin] 25 mg PO DAILY 06/25/14 08/03/20 History lisinopriL 40 mg PO DAILY@1400 06/25/14 08/03/20 History Acetaminophen [Tylenol Arthritis] 650 - 1,300 mg PO BID 06/24/16 08/03/20 History Acetaminophen/Diphenhydramine 1 tab PO HS 06/24/16 08/03/20 History [Tylenol PM 500-25mg] Cholecalciferol [Vitamin D3 (25 1,000 unit PO DAILY 06/24/16 08/03/20 History Mcg = 1000 Iu)] Zolpidem Tartrate [Ambien] 5 mg PO HS 06/24/16 08/03/20 History traMADol HCL [Ultram] 50 mg PO QID 06/24/16 08/03/20 History Esomeprazole Magnesium [NexIUM] 20 mg PO DAILY 02/27/17 08/03/20 History Cyanocobalamin (Vitamin B-12) 1,000 mcg PO DAILY 05/01/20 08/03/20 History [Vitamin B-12] Nitroglycerin [place](Dose Unknown) 1 spray PO DIRECTED PRN 05/01/20 08/03/20 History Prochlorperazine [Compazine] 5 mg PO Q8HR PRN 05/01/20 08/03/20 History tiZANidine [Zanaflex] 2 mg PO Q6HR PRN 05/01/20 08/03/20 History Aspirin 81 mg PO DAILY 05/04/20 08/03/20 History Albuterol Sulfate [Ventolin HFA] 1 - 2 puff INHALATION RT-Q6H PRN 08/03/2008/03 History Docusate [Colace] 100 mg PO HS 08/03/20 08/03/20 History Magnesium Hydroxide [Milk of 1,200 mg PO HS 08/03/20 08/03/20 History Magnesia] Nystatin [Nystop] 1 applic TOPICAL TID PRN 08/03/20 08/03/20 History Allergies Allergy/AdvReac Type Severity Reaction Status Date / Time adhesive Allergy developed Verified 08/03/20 10:18 black lump cephalexin Allergy Rash/Hives Verified 08/03/20 10:18 diphenhydramine HCl Allergy Unknown Verified 08/03/20 10:18 [From Benadryl] ibuprofen Allergy Unknown Verified 08/03/20 10:18 nickel Allergy Rash/Hives Verified 08/03/20 10:18 codeine AdvReac Nausea & Verified 08/03/20 10:18 Vomiting Penicillins AdvReac Itching Verified 08/03/20 10:18 Sulfa (Sulfonamide AdvReac Itching Verified 08/03/20 10:18 Antibiotics) Physical Exam Vitals: Vital Signs Temp Pulse Resp BP Pulse Ox 08/03/20 12:56 87 L 08/03/20 12:15 101 H 18 135/74 96 08/03/20 09:42 98.8 F 111 H 18 138/89 95 Intake and Output 08/02/20 08/03/20 08/03/20 22:59 06:59 14:59 Other: Weight 72.575 kg PHYSICAL EXAMINATION: GENERAL: The patient is alert and oriented x3, not in any acute distress. Well developed, well nourished. HEENT: Pupils are round and equally reacting to light. EOMI. No scleral icterus. No conjunctival pallor. Normocephalic, atraumatic. No pharyngeal erythema. No thyromegaly. CARDIOVASCULAR: S1 and S2 present. No murmurs, rubs, or gallops. PULMONARY: Chest is clear to auscultation, no wheezing or crackles. ABDOMEN: Soft, nontender, nondistended, normoactive bowel sounds. No palpable organomegaly. MUSCULOSKELETAL: No joint swelling or deformity. EXTREMITIES: No cyanosis, clubbing, or pedal edema. NEUROLOGICAL: Gross neurological examination did not reveal any focal deficits. SKIN: No rashes. Results CBC & Chem 7: 08/03/20 10:24 08/03/20 10:24 Labs: Abnormal Lab Results - Last 24 Hours (Table) 08/03/20 08/03/20 08/03/20 Range/Units 10:24 10:24 10:24 RDW 16.2 H (11.5-15.5) % Lymphocytes # 0.4 L (1.0-4.8) k/uL D-Dimer 0.72 H (<0.60) mg/L FEU BUN (7-17) mg/dL Glucose (74-99) mg/dL Calcium (8.4-10.2) mg/dL Alkaline Phosphatase (38-126) U/L C-Reactive Protein (<10.0) mg/L Urine Appearance Cloudy H (Clear) Urine Protein Trace H (Negative) Ur Leukocyte Esterase Large H (Negative) Urine RBC 10 H (0-5) /hpf Urine WBC 40 H (0-5) /hpf Ur Squamous Epith Cells 7 H (0-4) /hpf Urine Bacteria Occasional H (None) /hpf Urine Mucus Occasional H (None) /hpf 08/03/20 Range/Units 10:24 RDW (11.5-15.5) % Lymphocytes # (1.0-4.8) k/uL D-Dimer (<0.60) mg/L FEU BUN 41 H (7-17) mg/dL Glucose 141 H (74-99) mg/dL Calcium 10.4 H (8.4-10.2) mg/dL Alkaline Phosphatase 138 H (38-126) U/L C-Reactive Protein 153.5 H (<10.0) mg/L Urine Appearance (Clear) Urine Protein (Negative) Ur Leukocyte Esterase (Negative) Urine RBC (0-5) /hpf Urine WBC (0-5) /hpf Ur Squamous Epith Cells (0-4) /hpf Urine Bacteria (None) /hpf Urine Mucus (None) /hpf Thrombosis Risk Factor Assmnt - Choose All That Apply Any of the Below Risk Factors Present?: Yes Each Factor Represents 1 point: Obesity (BMI >25) Other Risk Factors: Yes Each Risk Factor Represents 3 Points: Age 75 years or older Other congenital or acquired thrombophilia - If yes, enter type in comment: No Thrombosis Risk Factor Assessment Total Risk Factor Score: 4 Thrombosis Risk Factor Assessment Level: Moderate Risk Assessment and Plan Plan: -shortness of breath and hypoxemia: Urology is not clear patient doesn't appear to be in COPD exacerbation orCHF exacerbation clinically aloft and a BNP. Pulmonary will be consulted to possibilities being atypical pneumonia or Covi19, PCR for coronavirus was ordered -fever: Secondary to assist #1, low possibly of urinary tract infection although it was abnormal. -Asthma without any acute exacerbation x-ray and having gastroesophageal reflux disease Hyperlipidemia -Hypertension -Hypothyroidism -Anxiety disorder For above-mentioned chronic medical problems patient will resume and continued on appropriate home medications
[2020-08-03] MEDS: ALBUTEROL HFA INHALER INHALATION SCH ×2 (16:48→20:44)
[2020-08-03 20:22] LABS: Ferritin 196.8 ng/mL (10.0-291.0)
[2020-08-03] MEDS: ATORVASTATIN 40 MG TAB PO SCH (21:09)
[2020-08-03] MEDS: ACETAMINOPHEN TAB 325 MG TAB PO SCH (21:10)
[2020-08-03] MEDS: ZOLPIDEM 5 MG TAB PO PRN (21:10)
[2020-08-03] MEDS: DOCUSATE 100 MG CAP PO SCH (21:11)
[2020-08-03] MEDS: traMADol 50 MG TAB PO SCH (21:12)
[2020-08-04] MEDS: SODIUM CHLORIDE 0.9% 1,000 ML IV SCH ×2 (03:05→16:15)
[2020-08-04] MEDS: ALBUTEROL HFA INHALER INHALATION SCH ×4 (03:42→20:53)
[2020-08-04] MEDS: traMADol 50 MG TAB PO PRN ×2 (03:53→15:29)
[2020-08-04] MEDS: GABAPENTIN 300 MG CAP PO SCH ×4 (03:53→21:07)
[2020-08-04] MEDS: ACETAMINOPHEN TAB 325 MG TAB PO SCH (07:24)
[2020-08-04] MEDS: ASPIRIN 81 MG PO SCH (07:42)
[2020-08-04] MEDS: amLODIPine 5 MG TAB PO SCH (07:43)
[2020-08-04] MEDS: atenoloL 25 MG TAB PO SCH (07:43)
[2020-08-04] MEDS: traMADol 50 MG TAB PO SCH (07:43)
[2020-08-04] MEDS: PANTOPRAZOLE 40 MG TABLET PO SCH (07:44)
[2020-08-04] MEDS: ENOXAPARIN 40 MG/0.4 ML SYRINGE SQ SCH (07:44)
[2020-08-04] MEDS ORDERED: LEVOFLOXACIN 500 MG TAB PO SCH (12:00)
--- NOTE | 2020-08-04 12:42 | P.CNPUL ---
History of Present Illness Consult date: 08/04/20 Chief complaint: Fever History of present illness: 84-year-old female patient coming in to the hospital yesterday because of fever with a temperature of 11.4 for approximately a week or so. She did complain of some increased shortness of breath and cough and congestion. A computed tomography scan of the chest was done in the ED utilizing a PE protocol. The patient had no evidence of pulmonary embolism. Some limited nonspecific groundglass changes was seen bilaterally. A coronavirus Covid 19 PCR testing was done and was negative. The patient had an elevated pro-calcitonin level. The pro-Level Was at 9.9 Indicating Bacterial Infection. UA Showed 40 WBC and 10 RBCs and the patient is currently on Levaquin. Feeling better. Afebrile for now. Lactic acid level is at 1.6. The white cell count is 6.2 with hemoglobin of 12.7. 82% neutrophils. Coagulation profile is within normal. Feeling better while being on Levaquin for now. No dysuria. No flank pain. The preliminary urine and blood cultures still pending for now. Review of Systems Constitutional: Reports fever, Reports weakness Eyes: denies as per HPI, denies blurred vision, denies bulging eye, denies decreased vision, denies diplopia, denies discharge, denies dry eye, denies irritation, denies itching, denies pain, denies photophobia, denies loss of peripheral vision, denies loss of vision, denies tunnel vision/blind spots Ears: deny: decreased hearing, ear discharge, earache, tinnitus Ears, nose, mouth and throat: Denies headache, Denies sore throat Breasts: absent: as per HPI, change in shape, gynecomastia, masses, nipple discharge, pain, skin changes, swelling Cardiovascular: Reports decreased exercise tolerance Respiratory: Reports cough Gastrointestinal: Reports as per HPI Genitourinary: Reports as per HPI Menstruation: Reports as per HPI Musculoskeletal: Reports as per HPI Musculoskeletal: absent: ankle pain, ankle stiffness, ankle swelling, as per HPI, elbow pain, elbow stiffness, elbow swelling, foot pain, foot stiffness, fo ot swelling, hand pain, hand stiffness, hand swelling, hip pain, hip stiffness, hip swelling, knee pain, knee stiffness, knee swelling, shoulder pain, shoulder stiffness, shoulder swelling, wrist pain, wrist stiffness, wrist swelling Integumentary: Reports as per HPI Neurological: Reports as per HPI Psychiatric: Reports as per HPI Endocrine: Reports as per HPI Hematologic/Lymphatic: Reports as per HPI Allergic/Immunologic: Reports as per HPI Past Medical History Past Medical History: Asthma, Chest Pain / Angina, GERD/Reflux, Hyperlipidemia, Hypertension, Osteoarthritis (OA), Thyroid Disorder Additional Past Medical History / Comment(s): Palpitations, murmur, sinus tach many years ago, bronchospasms, black mold exposure years ago, gastric ulcer, hiatal hernia, ulcerative colitis, diverticular disease, constipation, hypoglycemia, benign thyroid nodules/partial thyroidectomy, "aortic and R groin blockages", occasional bilateral pedal edema, L shoulder pain/adhesive capsulit is/decreased ROM/ L arm neuropathy, chronic low back pain History of Any Multi-Drug Resistant Organisms: None Reported Past Surgical History: Breast Surgery, Heart Catheterization, Hysterectomy, Tonsillectomy Additional Past Surgical History / Comment(s): EGD, colonoscopy, partial thyroidectomy, R breast benign lumpectomy, bilateral cataracts removed/lens implants, 04/2020 cardiac cath-treated medically. Past Anesthesia/Blood Transfusion Reactions: Motion Sickness Additional Past Anesthesia/Blood Transfusion Reaction / Comment(s): Pt received blood with childbirth many years ago without reaction. Past Psychological History: Anxiety Additional Psychological History / Comment(s): Pt resides alone in an apartment at [facility]. She uses a cane. She no longer drives, her silvina drives her to appts. She is otherwise independent. Smoking Status: Former smoker Past Alcohol Use History: Rare Additional Past Alcohol Use History / Comment(s): Pt started smoking in 1951 and quit in 2004. she was a light smoker, 3 cigarettes a day. Past Drug Use History: None Reported - Past Family History Daughter(s) Family Medical History: Cancer Father Family Medical History: Diabetes Mellitus Additional Family Medical History / Comment(s): Father developed blindness. Mother Family Medical History: Myocardial Infarction (MN) Additional Family Medical History / Comment(s): Mother had her first MN at the age of 35-40 yrs old. Son(s) Family Medical History: Coronary Artery Disease (CAD), Myocardial Infarction (MN) Additional Family Medical History / Comment(s): Son has multiple cardiac stents/CABG and had his first MN in his 40s. Medications and Allergies Home Medications Medication Instructions Recorded Confirmed Type Atorvastatin [Lipitor] 40 mg PO HS 06/25/14 08/03/20 History Budesonide-Formot 160-4.5 Mcg 2 puff INHALATION RT-DAILY 06/25/14 08/03/20 History [Symbicort 160-4.5 Mcg Inhaler] Dicyclomine [Bentyl] 10 mg PO DAILY PRN 06/25/14 08/03/20 History Gabapentin [Neurontin] 300 - 600 mg PO Q6H 06/25/14 08/03/20 History Isosorbide Mononitrate [Imdur] 30 mg PO DAILY@1400 06/25/14 08/03/20 History Multivitamins, Thera [Multivitamin 1 tab PO DAILY 06/25/14 08/03/20 History (formulary)] amLODIPine [Norvasc] 5 mg PO DAILY 06/25/14 08/03/20 History atenoloL [Tenormin] 25 mg PO DAILY 06/25/14 08/03/20 History lisinopriL 40 mg PO DAILY@1400 06/25/14 08/03/20 History Acetaminophen [Tylenol Arthritis] 650 - 1,300 mg PO BID 06/24/16 08/03/20 History Acetaminophen/Diphenhydramine 1 tab PO HS 06/24/16 08/03/20 History [Tylenol PM 500-25mg] Cholecalciferol [Vitamin D3 (25 1,000 unit PO DAILY 06/24/16 08/03/20 History Mcg = 1000 Iu)] Zolpidem Tartrate [Ambien] 5 mg PO HS 06/24/16 08/03/20 History traMADol HCL [Ultram] 50 mg PO QID 06/24/16 08/03/20 History Esomeprazole Magnesium [NexIUM] 20 mg PO DAILY 02/27/17 08/03/20 History Cyanocobalamin (Vitamin B-12) 1,000 mcg PO DAILY 05/01/20 08/03/20 History [Vitamin B-12] Nitroglycerin [place](Dose Unknown) 1 spray PO DIRECTED PRN 05/01/20 08/03/20 History Prochlorperazine [Compazine] 5 mg PO Q8HR PRN 05/01/20 08/03/20 History tiZANidine [Zanaflex] 2 mg PO Q6HR PRN 05/01/20 08/03/20 History Aspirin 81 mg PO DAILY 05/04/20 08/03/20 History Albuterol Sulfate [Ventolin HFA] 1 - 2 puff INHALATION RT-Q6H PRN 08/03/20 0 08/03/20 History Docusate [Colace] 100 mg PO HS 08/03/20 08/03/20 History Magnesium Hydroxide [Milk of 1,200 mg PO HS 08/03/20 08/03/20 History Magnesia] Nystatin [Nystop] 1 applic TOPICAL TID PRN 08/03/20 08/03/20 History Allergies Allergy/AdvReac Type Severity Reaction Status Date / Time adhesive Allergy developed Verified 08/03/20 10:18 black lump cephalexin Allergy Rash/Hives Verified 08/03/20 10:18 diphenhydramine HCl Allergy Unknown Verified 08/03/20 10:18 [From Benadryl] ibuprofen Allergy Unknown Verified 08/03/20 10:18 nickel Allergy Rash/Hives Verified 08/03/20 10:18 codeine AdvReac Nausea & Verified 08/03/20 10:18 Vomiting Penicillins AdvReac Itching Verified 08/03/20 10:18 Sulfa (Sulfonamide AdvReac Itching Verified 08/03/20 10:18 Antibiotics) Physical Exam Vitals: Vital Signs Temp Pulse Pulse Resp BP BP Pulse Ox 08/04/20 10:30 91 L 08/04/20 07:00 98.7 F 109 H 18 139/83 95 08/04/20 01:10 98.2 F 96 20 121/68 92 L 08/03/20 21:30 99.1 F 105 H 20 134/71 95 08/03/20 20:12 94 18 132/88 99 08/03/20 17:44 98.1 F 97 18 102/69 99 08/03/20 17:24 94 16 99 08/03/20 12:56 87 L Intake and Output 08/03/20 08/04/20 08/04/20 22:59 06:59 14:59 Intake Total 100 Balance 100 Intake: Oral 100 Other: # Voids 3 GENERAL: The patient is alert and oriented x3, not in any acute distress. Well developed, well nourished. HEENT: Pupils are round and equally reacting to light. EOMI. No scleral icterus. No conjunctival pallor. Normocephalic, atraumatic. No pharyngeal erythema. No thyromegaly. CARDIOVASCULAR: S1 and S2 present. No murmurs, rubs, or gallops. PULMONARY: Chest is clear to auscultation, no wheezing or crackles. ABDOMEN: Soft, nontender, nondistended, normoactive bowel sounds. No palpable or ganomegaly. MUSCULOSKELETAL: No joint swelling or deformity. EXTREMITIES: No cyanosis, clubbing, or pedal edema. NEUROLOGICAL: Gross neurological examination did not reveal any focal deficits. Examination of the skin revealed no evidence of significant rashes, suspicious appearing nevi or other concerning lesions. Results - Laboratory Findings CBC and BMP: 08/03/20 10:24 08/03/20 10:24 PT/INR, D-dimer PT 10.0 sec (9.0-12.0) 08/03/20 10:24 INR 1.0 (<1.2) 08/03/20 10:24 D-Dimer 0.72 mg/L FEU (<0.60) H 08/03/20 10:24 Abnormal lab findings: Abnormal Labs 08/03/20 08/03/20 08/03/20 10:24 10:24 10:24 RDW 16.2 H Lymphocytes # 0.4 L D-Dimer 0.72 H BUN Glucose Calcium Alkaline Phosphatase C-Reactive Protein Procalcitonin Urine Appearance Cloudy H Urine Protein Trace H Ur Leukocyte Esterase Large H Urine RBC 10 H Urine WBC 40 H Ur Squamous Epith Cells 7 H Urine Bacteria Occasional H Urine Mucus Occasional H 08/03/20 08/03/20 10:24 10:24 RDW Lymphocytes # D-Dimer BUN 41 H Glucose 141 H Calcium 10.4 H Alkaline Phosphatase 138 H C-Reactive Protein 153.5 H Procalcitonin 9.98 H Urine Appearance Urine Protein Ur Leukocyte Esterase Urine RBC Urine WBC Ur Squamous Epith Cells Urine Bacteria Urine Mucus - Diagnostic Findings Chest x-ray: image reviewed CT scan - chest: image reviewed Assessment and Plan Plan: 1 acute febrile illness on that investigation. No clear evidence of pneumonia. CT angios the chest was negative and the coronavirus Covid 19 PCR came back also negative. Focused on his elevated and I suspect an underlying bacterial infection, probably of a underlying urinary source 2 bronchial asthma, currently inactive in stable 3 hypertension 4 hyperlipidemia 5 hypothyroidism 6 chronic anxiety 7 history of ulcerative colitis is currently inactive in stable 8 history of diverticular disease along with hiatal hernia previous history of gastric ulcer 9 chronic back pain and peripheral neuropathy 10 remote history of a nonspecific mold exposure at her work environment without any chronic pulmonary complications Plan Check urine cultures and blood cultures Continue Levaquin for now The oxygenation. Clinically improved and the patient is currently on room air oxygen
[2020-08-04] MEDS: ISOSORBIDE MONONITRATE ER 30 MG TAB.ER.24H PO SCH (13:28)
[2020-08-04] MEDS: lisinopriL 20 MG TAB PO SCH (13:28)
--- NOTE | 2020-08-04 14:09 | P.PN ---
Subjective 84-year-old pleasant female is being admitted for hypoxemia patient is found to have saturations of around 86% patient had complains of fever going on and off and highest temperature being 101.4 for about a week. Patient denied any sick and body aches. Patient was also complaining of shortness of breath and cough without any sputum production. Patient had a computed tomography scan of the chest which did not show any PE had a lobar infiltrate but there is very mild nonspecific infiltrate in theright lower lung lugo. Patient was given a dose oflevofloxacin because of abnormal urine which appeared to be contaminated urine sample although does have white blood cell count and large leukocyte esterase did has, sepsis results as well. Covid 19 testing was ordered as well.patient denied orthopnea or paroxysmal nocturnal dyspnea. Patient does have mild hypercalcemia. 08/04/2020 Patient is afebrile, patient is being treated for possible UTI although there is still no good vaccination for her shortness of breath which is actually impr oving, her Covid 19 was negative. Constitutional: Denied any fatigue denied any fever. Cardio vascular: denied any chest pain, palpitations Gastrointestinal denied any nausea vomiting Pulmonary: Denied any shortness of breath cough Neurologic denied any new focal deficits All inpatient medications were reviewed and appropriate changes in these medications as dictated in the interval history and assessment and plan. Objective - Vital Signs Vital signs: Vital Signs Temp 98.7 F 08/04/20 07:00 Pulse 109 H 08/04/20 07:00 Resp 18 08/04/20 07:00 BP 139/83 08/04/20 07:00 Pulse Ox 91 L 08/04/20 10:30 Intake & Output 08/03/20 08/04/20 08/04/20 18:59 06:59 18:59 Intake Total 100 Balance 100 Weight 72.575 kg Intake: Oral 100 Other: # Voids 3 - Exam PHYSICAL EXAMINATION: GENERAL: The patient is alert and oriented x3, not in any acute distress. Well developed, well nourished. HEENT: Pupils are round and equally reacting to light. EOMI. No scleral icterus. No conjunctival pallor. Normocephalic, atraumatic. No pharyngeal erythema. No thyromegaly. CARDIOVASCULAR: S1 and S2 present. No murmurs, rubs, or gallops. PULMONARY: Chest is clear to auscultation, no wheezing or crackles. ABDOMEN: Soft, nontender, nondistended, normoactive bowel sounds. No palpable organomegaly. MUSCULOSKELETAL: No joint swelling or deformity. EXTREMITIES: No cyanosis, clubbing, or pedal edema. NEUROLOGICAL: Gross neurological examination did not reveal any focal deficits. SKIN: No rashes. - Labs CBC & Chem 7: 08/03/20 10:24 08/03/20 10:24 Labs: Abnormal Lab Results - Last 24 Hours (Table) 08/03/20 Range/Units 10:24 Procalcitonin 9.98 H (0.02-0.09) ng/mL Microbiology - Last 24 Hours (Table) 08/03/20 10:24 Blood Culture - Preliminary Blood No Growth after 24 hours 08/03/20 10:24 Urine Culture - Preliminary Urine,Voided Assessment and Plan Plan: -shortness of breath and hypoxemia: Unclear etiology, rule out coronary 19, rule out pulmonary embolism. No evidence of pneumonia. Pulmonary evaluated the patient. -fever: Patient is being treated for UTI with levofloxacin -Asthma without any acute exacerbation - gastroesophageal reflux disease Hyperlipidemia -Hypertension -Hypothyroidism -Anxiety disorder For above-mentioned chronic medical problems patient will resume and continued on appropriate home medications
[2020-08-04] MEDS: ACETAMINOPHEN TAB 325 MG TAB PO PRN (19:58)
[2020-08-04] MEDS: ATORVASTATIN 40 MG TAB PO SCH (20:08)
[2020-08-04] MEDS: DOCUSATE 100 MG CAP PO SCH (20:08)
[2020-08-04] MEDS: ZOLPIDEM 5 MG TAB PO PRN (21:07)
[2020-08-05] MEDS: GABAPENTIN 300 MG CAP PO SCH ×2 (03:13→08:35)
[2020-08-05] MEDS: traMADol 50 MG TAB PO PRN ×2 (03:15→11:42)
[2020-08-05] MEDS: SODIUM CHLORIDE 0.9% 1,000 ML IV SCH (04:45)
[2020-08-05] MEDS: PANTOPRAZOLE 40 MG TABLET PO SCH (07:26)
[2020-08-05] MEDS: ACETAMINOPHEN TAB 325 MG TAB PO PRN ×2 (07:26→14:58)
[2020-08-05] MEDS: ALBUTEROL HFA INHALER INHALATION SCH ×3 (08:14→16:05)
[2020-08-05] MEDS: amLODIPine 5 MG TAB PO SCH (08:35)
[2020-08-05] MEDS: ASPIRIN 81 MG PO SCH (08:35)
[2020-08-05] MEDS: atenoloL 25 MG TAB PO SCH (08:35)
[2020-08-05] MEDS: ENOXAPARIN 40 MG/0.4 ML SYRINGE SQ SCH (08:35)
--- NOTE | 2020-08-05 11:59 | P.PN ---
Subjective Progress Note Date: 08/05/20 Principal diagnosis: Acute febrile illness, related to urinary tract infection 84-year-old female patient coming in to the hospital yesterday because of fever with a temperature of 11.4 for approximately a week or so. She did complain of some increased shortness of breath and cough and congestion. A computed tomography scan of the chest was done in the ED utilizing a PE protocol. The patient had no evidence of pulmonary embolism. Some limited nonspecific groundglass changes was seen bilaterally. A coronavirus Covid 19 PCR testing was done and was negative. The patient had an elevated pro-calcitonin level. The pro-Level Was at 9.9 Indicating Bacterial Infection. UA Showed 40 WBC and 10 RBCs and the patient is currently on Levaquin. Feeling better. Afebrile for now. Lactic acid level is at 1.6. The white cell count is 6.2 with hemoglobin of 12.7. 82% neutrophils. Coagulation profile is within normal. Feeling better while being on Levaquin for now. No dysuria. No flank pain. The preliminary urine and blood cultures still pending for now. On 08/05/2020 patient seen in follow-up, patient is awake and alert, in no acute distress, she is on minimal amount of oxygen, currently on 2 L, and her pulse ox is 95%, denies any shortness of breath, no cough or congestion, no altered mentation. Her urine culture is positive for gram-negative bacilli, blood culture show no growth, she is on Levaquin for antibiotic coverage. Clinically asymptomatic, lung sounds are clear, no chest congestion. Objective - Vital Signs Vital signs: Vital Signs Temp 98.6 F 08/05/20 07:00 Pulse 105 H 08/05/20 07:00 Resp 18 08/05/20 07:00 BP 114/71 08/05/20 07:00 Pulse Ox 95 08/05/20 11:45 Intake & Output 08/04/20 08/05/20 08/05/20 18:59 06:59 18:59 Intake Total 300 296 Balance 300 296 Intake: Oral 300 296 Other: Voiding Method Toilet # Voids 3 2 - Exam GENERAL EXAM: Alert, very pleasant, 84-year-old white female, on 2 L of oxygen the pulse ox of 95%, comfortable in no apparent distress. HEAD: Normocephalic/atraumatic. EYES: Normal reaction of pupils, equal size. Conjunctiva pink, sclera white. NOSE: Clear with pink turbinates. THROAT: No erythema or exudates. NECK: No masses, no JVD, no thyroid enlargement, no adenopathy. CHEST: No chest wall deformity. Symmetrical expansion. LUNGS: Equal air entry with no crackles, wheeze, rhonchi or dullness. CVS: Regular rate and rhythm, normal S1 and S2, no gallops, no murmurs, no rubs ABDOMEN: Soft, nontender. No hepatosplenomegaly, normal bowel sounds, no guarding or rigidity. EXTREMITIES: No clubbing, no edema, no cyanosis, 2+ pulses and upper and lower extremities. MUSCULOSKELETAL: Muscle strength and tone normal. SPINE: No scoliosis or deformity SKIN: No rashes CENTRAL NERVOUS SYSTEM: Alert and oriented -3. No focal deficits, tone is n ormal in all 4 extremities. PSYCHIATRIC: Alert and oriented -3. Appropriate affect. Intact judgment and insight. - Labs CBC & Chem 7: 08/03/20 10:24 08/03/20 10:24 Labs: Microbiology - Last 24 Hours (Table) 08/03/20 10:24 Urine Culture - Preliminary Urine,Voided Gram Neg Bacilli 08/03/20 10:24 Blood Culture - Preliminary Blood No Growth after 24 hours Assessment and Plan Plan: Assessment: 1 acute febrile illness related to acute urinary tract infection, urine culture is positive for gram-negative bacilli, cultures pending, No clear evidence of pneumonia. CT angios the chest was negative and the coronavirus Covid 19 PCR came back also negative. 2 bronchial asthma, currently inactive in stable 3 hypertension 4 hyperlipidemia 5 hypothyroidism 6 chronic anxiety 7 history of ulcerative colitis is currently inactive in stable 8 history of diverticular disease along with hiatal hernia previous history of gastric ulcer 9 chronic back pain and peripheral neuropathy 10 remote history of a nonspecific mold exposure at her work environment without any chronic pulmonary complications Plan: Clinically stable, she's had no fever or chills, obtain room air pulse ox, obtain home oxygen assessment, no pulmonary symptoms antibiotic coverage in the form of Levaquin, no altered mentation, increase activity as tolerated, anticipate discharge home today. I performed a history & physical examination of the patient and discussed their management with my nurse practitioner, Asuncion Paez. I reviewed the nurse practitioner's note and agree with the documented findings and plan of care. Lung sounds are positive for clear breath sounds. The findings and the impression was discussed with the patient. I attest to the documentation by the nurse practitioner. Time with Patient: Less than 30
[2020-08-05] MEDS ORDERED: LEVOFLOXACIN 250 MG TAB PO SCH (12:00)
--- NOTE | 2020-08-05 12:01 | P.DS ---
Providers Date of admission: 08/03/20 13:15 Attending physician: Jacqui Platt Consults: 08/03/20 13:59 Consult Physician Routine Consulting Provider: Heraclio Osorio Consult Reason/Comments: Hypoxia, etiology unclear Do you want consulting provider notified?: Yes Primary care physician: Cheyanne [facility] Course: 84-year-old pleasant female is being admitted for hypoxemia patient is found to have saturations of around 86% patient had complains of fever going on and off and highest temperature being 101.4 for about a week. Patient denied any sick and body aches. Patient was also complaining of shortness of breath and cough without any sputum production. Patient had a computed tomography scan of the chest which did not show any PE had a lobar infiltrate but there is very mild nonspecific infiltrate in theright lower lung lugo. Patient was given a dose oflevofloxacin because of abnormal urine which appeared to be contaminated urine sample although does have white blood cell count and large leukocyte esterase did has, sepsis results as well. Covid 19 testing was ordered as well.patient denied orthopnea or paroxysmal nocturnal dyspnea. Patient does have mild hypercalcemia. 08/04/2020 Patient is afebrile, patient is being treated for possible UTI although there is still no good vaccination for her shortness of breath which is actually improving, her Covid 19 was negative. 08/04/2020 The patient is on levofloxacin with improved symptoms and patient is insisting on discharge if cleared by pulmonary and if patient is able to saturate well without oxygen patient will be discharged today. Patient's urine cultures are showing only 50,000 gram-negative bacilli my suspicion for UTI is low as well. PHYSICAL EXAMINATION: GENERAL: The patient is alert and oriented x3, not in any acute distress. Well developed, well nourished. HEENT: Pupils are round and equally reacting to light. EOMI. No scleral icterus. No conjunctival pallor. Normocephalic, atraumatic. No pharyngeal erythema. No thyromegaly. CARDIOVASCULAR: S1 and S2 present. No murmurs, rubs, or gallops. PULMONARY: Chest is clear to auscultation, no wheezing or crackles. ABDOMEN: Soft, nontender, nondistended, normoactive bowel sounds. No palpable organomegaly. MUSCULOSKELETAL: No joint swelling or deformity. EXTREMITIES: No cyanosis, clubbing, or pedal edema. NEUROLOGICAL: Gross neurological examination did not reveal any focal deficits. SKIN: No rashes. Assessment and Plan Plan: -shortness of breath and hypoxemia: Unclear etiology, ruled out coronary 19, rule out pulmonary embolism. No evidence of pneumonia. Pulmonary evaluated the patient., No evidence of CHF -fever: Patient is being treated for UTI with levofloxacin -Asthma without any acute exacerbation - gastroesophageal reflux disease Hyperlipidemia -Hypertension -Hypothyroidism -Anxiety disorder Plan - Discharge Summary Discharge Rx Participant: No New Discharge Prescriptions: New Levofloxacin [Levaquin] 250 mg PO Q24H #3 tab Continue Multivitamins, Thera [Multivitamin (formulary)] 1 tab PO DAILY Gabapentin [Neurontin] 300 - 600 mg PO Q6H lisinopriL 40 mg PO DAILY@1400 Isosorbide Mononitrate [Imdur] 30 mg PO DAILY@1400 Atorvastatin [Lipitor] 40 mg PO HS atenoloL [Tenormin] 25 mg PO DAILY Budesonide-Formot 160-4.5 Mcg [Symbicort 160-4.5 Mcg Inhaler] 2 puff INHALATION RT-DAILY Dicyclomine [Bentyl] 10 mg PO DAILY PRN PRN Reason: Pain traMADol HCL [Ultram] 50 mg PO QID Zolpidem Tartrate [Ambien] 5 mg PO HS Cholecalciferol [Vitamin D3 (25 Mcg = 1000 Iu)] 1,000 unit PO DAILY Acetaminophen [Tylenol Arthritis] 650 - 1,300 mg PO BID Esomeprazole Magnesium [NexIUM] 20 mg PO DAILY Prochlorperazine [Compazine] 5 mg PO Q8HR PRN PRN Reason: Nausea Cyanocobalamin (Vitamin B-12) [Vitamin B-12] 1,000 mcg PO DAILY Nitroglycerin Mccrory(Dose Unknown) 1 spray PO DIRECTED PRN PRN Reason: Chest Pain Aspirin 81 mg PO DAILY Nystatin [Nystop] 1 applic TOPICAL TID PRN PRN Reason: Rash Albuterol Sulfate [Ventolin HFA] 1 - 2 puff INHALATION RT-Q6H PRN PRN Reason: Shortness Of Breath Docusate [Colace] 100 mg PO HS Magnesium Hydroxide [Milk of Magnesia] 1,200 mg PO HS Discontinued amLODIPine [Norvasc] 5 mg PO DAILY Acetaminophen/Diphenhydramine [Tylenol PM 500-25mg] 1 tab PO HS tiZANidine [Zanaflex] 2 mg PO Q6HR PRN PRN Reason: Muscle Pain Discharge Medication List Atorvastatin [Lipitor] 40 mg PO HS 06/25/14 [History] Budesonide-Formot 160-4.5 Mcg [Symbicort 160-4.5 Mcg Inhaler] 2 puff INHALATION RT-DAILY 06/25/14 [History] Dicyclomine [Bentyl] 10 mg PO DAILY PRN 06/25/14 [History] Gabapentin [Neurontin] 300 - 600 mg PO Q6H 06/25/14 [History] Isosorbide Mononitrate [Imdur] 30 mg PO DAILY@1400 06/25/14 [History] Multivitamins, Thera [Multivitamin (formulary)] 1 tab PO DAILY 06/25/14 [History] atenoloL [Tenormin] 25 mg PO DAILY 06/25/14 [History] lisinopriL 40 mg PO DAILY@1400 06/25/14 [History] Acetaminophen [Tylenol Arthritis] 650 - 1,300 mg PO BID 06/24/16 [History] Cholecalciferol [Vitamin D3 (25 Mcg = 1000 Iu)] 1,000 unit PO DAILY 06/24/16 [History] Zolpidem Tartrate [Ambien] 5 mg PO HS 06/24/16 [History] traMADol HCL [Ultram] 50 mg PO QID 06/24/16 [History] Esomeprazole Magnesium [NexIUM] 20 mg PO DAILY 02/27/17 [History] Cyanocobalamin (Vitamin B-12) [Vitamin B-12] 1,000 mcg PO DAILY 05/01/20 [History] Nitroglycerin Mccrory(Dose Unknown) 1 spray PO DIRECTED PRN 05/01/20 [History] Prochlorperazine [Compazine] 5 mg PO Q8HR PRN 05/01/20 [History] Aspirin 81 mg PO DAILY 05/04/20 [History] Albuterol Sulfate [Ventolin HFA] 1 - 2 puff INHALATION RT-Q6H PRN 08/03/20 [History] Docusate [Colace] 100 mg PO HS 08/03/20 [History] Magnesium Hydroxide [Milk of Magnesia] 1,200 mg PO HS 08/03/20 [History] Nystatin [Nystop] 1 applic TOPICAL TID PRN 08/03/20 [History] Levofloxacin [Levaquin] 250 mg PO Q24H #3 tab 08/05/20 [Rx] Follow up Appointment(s)/Referral(s): Cheyanne Garcia III, MD [Primary Care Provider] - 08/07/20 10:30 am [facility], [NON-STAFF] - As Needed
[2020-08-05 15:01] VITALS: BP 129/77; PULSE 88; RESP 16; TEMP 98.1
[2020-08-05] MEDS: ISOSORBIDE MONONITRATE ER 30 MG TAB.ER.24H PO SCH (15:01)
[2020-08-05] MEDS: lisinopriL 20 MG TAB PO SCH (15:01)
== END 2020-08-05 16:29 | disposition home or self-care (01) | DRG 690 ==
LOC: EC 09:39 → 4SSUR 13:15
PROVIDERS: ADMIT Internal Medicine; ATTEND Internal Medicine
DX: N39.0 Urinary tract infection, site not specified (principal); K51.90 Ulcerative colitis, unspecified, without complications; R09.02 Hypoxemia; Z20.828 Contact with and (suspected) exposure to other viral communicable diseases; G89.29 Other chronic pain; M54.9 Dorsalgia, unspecified; E89.0 Postprocedural hypothyroidism; E78.5 Hyperlipidemia, unspecified; E83.52 Hypercalcemia; E86.0 Dehydration; F41.9 Anxiety disorder, unspecified; G62.9 Polyneuropathy, unspecified; I10 Essential (primary) hypertension; J45.909 Unspecified asthma, uncomplicated; K21.9 Gastro-esophageal reflux disease without esophagitis; Z77.120 Contact with and (suspected) exposure to mold (toxic); Z79.51 Long term (current) use of inhaled steroids; Z79.82 Long term (current) use of aspirin; Z79.899 Other long term (current) drug therapy; Z82.1 Family history of blindness and visual loss; Z82.49 Family history of ischemic heart disease and other diseases of the circulatory system; Z83.3 Family history of diabetes mellitus; Z87.11 Personal history of peptic ulcer disease; Z87.891 Personal history of nicotine dependence; Z90.710 Acquired absence of both cervix and uterus; Z98.42 Cataract extraction status, left eye; Z98.41 Cataract extraction status, right eye; Z96.1 Presence of intraocular lens; E66.9 Obesity, unspecified; Z68.30 Body mass index [BMI] 30.0-30.9, adult; Z60.2 Problems related to living alone; M19.90 Unspecified osteoarthritis, unspecified site; K57.90 Diverticulosis of intestine, part unspecified, without perforation or abscess without bleeding; Z88.4 Allergy status to anesthetic agent; Z88.1 Allergy status to other antibiotic agents; Z88.5 Allergy status to narcotic agent; Z88.0 Allergy status to penicillin; Z88.2 Allergy status to sulfonamides; M75.02 Adhesive capsulitis of left shoulder; Z90.89 Acquired absence of other organs
CPT/HCPCS: 36415; 71046; 71275; 80053; 81001; 82728; 83605; 83615; 83735; 83880; 84145; 84484; 85025; 85379; 85610; 85730; 86140; 87040; 87077; 87086; 87186; 93005; 94640; 96365; 99285

== ENCOUNTER 2021-05-26 | Emergency (ER) | payer MEDICARE, BC | END 2021-05-26 11:30 | disposition home or self-care (01) | CPT/HCPCS: 36415; 71046; 80053; 85025; 94640; 99285 ==

== ENCOUNTER 2021-08-21 14:25 | Emergency (ER) | payer MEDICARE, BC ==
[2021-08-21 15:05] VITALS: RESP 18
[2021-08-21] MEDS ORDERED: ORPHENADRINE 30 MG/ML 2 ML VIAL IVP STA (15:11)
[2021-08-21] MEDS ORDERED: HYDROmorphone 0.5 MG/0.5 ML SYRINGE IVP STA (15:11)
--- NOTE | 2021-08-21 15:38 | XR ---
EXAMINATION TYPE: XR lumbar spine 2 or 3V DATE OF EXAM: 08/21/2021 COMPARISON: NONE HISTORY: Pain. Fall. TECHNIQUE: 3 views FINDINGS: Lumbar vertebra have normal alignment. Posterior elements are intact. Abdominal aorta is at heromatous. There is osteopenia. Posterior elements are intact. Sacroiliac joints are intact. IMPRESSION: Negative lumbar spine exam. No fracture.
--- NOTE | 2021-08-21 15:39 | XR ---
EXAMINATION TYPE: XR sacrum coccyx DATE OF EXAM: 08/21/2021 COMPARISON: NONE HISTORY: Pain TECHNIQUE: 3 view FINDINGS: Segments have normal alignment. Posterior elements are intact. There is no compression frac ture. Sacroiliac joints appear normal. IMPRESSION: Negative sacrum and coccyx exam. No fracture.
--- NOTE | 2021-08-21 15:50 | ED ---
Fall HPI - General Chief Complaint: Fall Stated Complaint: weakness Time Seen by Provider: 08/21/21 15:00 Source: patient, family, EMS Mode of arrival: EMS - History of Present Illness Initial Comments: Patient is a 86-year-old female that presents emergency department complaining of tailbone pain. She notes that she was bent over looking for something in a cupboard when she fell on her butt on . She notes that she has significant pain on movement. She notes that she is still able to walk ambulate does not have saddle anesthesia and has no urinary or bowel retention or incontinence. She notes that the pain is approximately a 10 out of 10 with no relief. She notes she does have some low back pain at this time. She notes that she does have a history of neuropathy in her bilateral lower extremities. Her daughter brought her in for evaluation for any possible fractures. She denied any chest pain shortness breath headache nausea vomiting diarrhea constipation fever fatigue chills. - Related Data Home Medications Medication Instructions Recorded Confirmed Atorvastatin [Lipitor] 40 mg PO HS 06/25/14 05/26/21 Budesonide-Formot 160-4.5 Mcg 2 puff INHALATION RT-DAILY 06/25/14 05/26/21 [Symbicort 160-4.5 Mcg Inhaler] Dicyclomine [Bentyl] 10 mg PO QID PRN 06/25/14 05/26/21 Gabapentin [Neurontin] 300 mg PO Q6H 06/25/14 05/26/21 Isosorbide Mononitrate [Imdur] 30 mg PO HS 06/25/14 05/26/21 Multivitamins, Thera [Multivitamin 1 tab PO DAILY 06/25/14 05/26/21 (formulary)] atenoloL [Tenormin] 25 mg PO BID 06/25/14 05/26/21 lisinopriL 40 mg PO DAILY@1400 06/25/14 05/26/21 Acetaminophen [Tylenol Arthritis] 650 mg PO TID PRN 06/24/16 05/26/21 Zolpidem Tartrate [Ambien] 5 mg PO HS 06/24/16 05/26/21 traMADol HCL [Ultram] 50 mg PO QID PRN 06/24/16 05/26/21 Esomeprazole Magnesium [NexIUM] 20 mg PO DAILY 02/27/17 05/26/21 Prochlorperazine [Compazine] 5 mg PO Q8HR PRN 05/01/20 05/26/21 Aspirin 81 mg PO DAILY 05/04/20 05/26/21 Docusate [Colace] 100 mg PO HS 08/03/20 05/26/21 Acetaminophen/Diphenhydramine 1 tab PO HS PRN 05/26/21 05/26/21 [Tylenol PM 500-25mg] Cholecalciferol [Vitamin D3 (25 25 mcg PO DAILY 05/26/21 05/26/21 Mcg = 1000 Iu)] amLODIPine [Norvasc] 5 mg PO DAILY 05/26/21 05/26/21 tiZANidine HCL [Zanaflex] 2 mg PO HS 05/26/21 05/26/21 Previous Rx's Medication Instructions Recorded HYDROcodone/APAP 7.5-325MG [[place] 1 tab PO Q6HR PRN 3 Days #12 tab 08/21/21 7.5-325] tiZANidine [Zanaflex] 2 mg PO Q8HR PRN 5 Days #15 tablet 08/21/21 Allergies Allergy/AdvReac Type Severity Reaction Status Date / Time adhesive Allergy developed Verified 08/21/21 15:05 black lump cephalexin Allergy Rash/Hives Verified 08/21/21 15:05 diphenhydramine HCl Allergy "throat Verified 08/21/21 15:05 [From Benadryl] felt like it was closing" ibuprofen Allergy Unknown Verified 08/21/21 15:05 latex Allergy Unknown Verified 08/21/21 15:05 nickel Allergy Rash/Hives Verified 08/21/21 15:05 Penicillins Allergy Itching Verified 08/21/21 15:05 Sulfa (Sulfonamide Allergy Itching Verified 08/21/21 15:05 Antibiotics) codeine AdvReac Nausea & Verified 08/21/21 15:05 Vomiting Review of Systems ROS Statement: Those systems with pertinent positive or pertinent negative responses have been documented in the HPI. ROS Other: All systems not noted in ROS Statement are negative. Past Medical History Past Medical History: Asthma, Chest Pain / Angina, GERD/Reflux, Hyperlipidemia, Hypertension, Osteoarthritis (OA), Thyroid Disorder Additional Past Medical History / Comment(s): Palpitations, murmur, sinus tach many years ago, bronchospasms, black mold exposure years ago, gastric ulcer, hiatal hernia, ulcerative colitis, diverticular disease, constipation, hypoglycemia, benign thyroid nodules/partial thyroidectomy, "aortic and R groin blockages", occasional bilateral pedal edema, L shoulder pain/adhesive capsul itis/decreased ROM/ L arm neuropathy, chronic low back pain History of Any Multi-Drug Resistant Organisms: None Reported Past Surgical History: Breast Surgery, Heart Catheterization, Hysterectomy, Tonsillectomy Additional Past Surgical History / Comment(s): EGD, colonoscopy, partial thyroidectomy, R breast benign lumpectomy, bilateral cataracts removed/lens implants, 04/2020 cardiac cath-treated medically. Past Anesthesia/Blood Transfusion Reactions: Motion Sickness Additional Past Anesthesia/Blood Transfusion Reaction / Comment(s): Pt received blood with childbirth many years ago without reaction. Past Psychological History: Anxiety Smoking Status: Former smoker Past Alcohol Use History: Rare Past Drug Use History: None Reported - Past Family History Daughter(s) Family Medical History: Cancer Father Family Medical History: Diabetes Mellitus Additional Family Medical History / Comment(s): Father developed blindness. Mother Family Medical History: Myocardial Infarction ([place]) Additional Family Medical History / Comment(s): Mother had her first AK at the age of 35-40 yrs old. Son(s) Family Medical History: Coronary Artery Disease (CAD), Myocardial Infarction ([place]) Additional Family Medical History / Comment(s): Son has multiple cardiac stents/CABG and had his first AK in his 40s. General Exam Limitations: physical limitation General appearance: alert, in no apparent distress Head exam: Present: atraumatic, normocephalic, normal inspection Eye exam: Present: normal appearance, PERRL, EOMI. Absent: scleral icterus, conjunctival injection, periorbital swelling ENT exam: Present: normal exam, mucous membranes moist Respiratory exam: Present: normal lung sounds bilaterally. Absent: respiratory distress, wheezes, rales, rhonchi, stridor Cardiovascular Exam: Present: regular rate, normal rhythm, normal heart sounds. Absent: systolic murmur, diastolic murmur, rubs, gallop, clicks GI/Abdominal exam: Present: soft, normal bowel sounds. Absent: distended, tenderness, guarding, rebound, rigid Extremities exam: Present: normal inspection, full ROM, normal capillary refill. Absent: tenderness, pedal edema, joint swelling, calf tenderness Back exam: Present: normal inspection, tenderness (Over the bilateral SI.), muscle spasm (Patient rolls over and moves lower back.) Neurological exam: Present: alert, oriented X3 Psychiatric exam: Present: normal affect, normal mood Skin exam: Present: warm, dry, intact, normal color. Absent: rash Course Vital Signs 08/21/21 14:45 Temperature 98.3 F Pulse Rate 72 Respiratory 18 Rate Blood Pressure 144/76 O2 Sat by Pulse 98 Oximetry Medical Decision Making - Medical Decision Making 86-year-old female that fell on her butt from standing height while looking in a cupboard. Complaining of tailbone pain. X-ray of the sacrum coccyx, x-ray lumbar spine, 0.5 mg of Dilaudid, 40 mg of Norflex ordered. X-ray imaging negative for any acute fractures or dislocations. Patient most likely experiencing a coccyx bruise with muscle spasms of low back causing sciatica with radicular symptoms. Patient's muscle relaxer and pain medications refilled and sent to pharmacy for her. Case discussed with Dr. Flynn, patient can discharge home with follow-up to primary care. - Radiology Data Radiology results: report reviewed, image reviewed X-ray of the sacrum coccyx: Negative sacrococcyx exam. No fracture. X-ray lumbar spine: Negative lumbar spine exam. No fracture. Disposition Clinical Impression: Coccyx contusion, Lumbar radiculopathy, Back spasm Disposition: HOME SELF-CARE Condition: Stable Instructions (If sedation given, give patient instructions): Fall Prevention for Older Adults (ED) Additional Instructions: Please return to the Emergency Department if symptoms worsen or any other concerns. Follow-up with primary care 1-2 days. Take medication as prescribed. Avoid shortness activity or exercise. Is patient prescribed a controlled substance at d/c from ED?: No Referrals: Cheyanne Garcia III, MD [Primary Care Provider] - 1-2 days Time of Disposition: 15:55
[2021-08-21 16:14] VITALS: BP 126/70; PULSE 64; TEMP 98
== END 2021-08-21 16:07 | disposition home or self-care (01) ==
LOC: EC 14:25
DX: S30.0XXA Contusion of lower back and pelvis, initial encounter (principal); M54.16 Radiculopathy, lumbar region; M62.830 Muscle spasm of back; R53.1 Weakness; E78.5 Hyperlipidemia, unspecified; I10 Essential (primary) hypertension; J45.909 Unspecified asthma, uncomplicated; K21.9 Gastro-esophageal reflux disease without esophagitis; M19.90 Unspecified osteoarthritis, unspecified site; Z79.51 Long term (current) use of inhaled steroids; Z79.82 Long term (current) use of aspirin; Z87.891 Personal history of nicotine dependence; Z88.0 Allergy status to penicillin; Z88.2 Allergy status to sulfonamides; Z88.5 Allergy status to narcotic agent; Z88.8 Allergy status to other drugs, medicaments and biological substances; Z91.040 Latex allergy status; Z88.6 Allergy status to analgesic agent; Z91.09 Other allergy status, other than to drugs and biological substances; Z88.1 Allergy status to other antibiotic agents; Z79.899 Other long term (current) drug therapy; W19.XXXA Unspecified fall, initial encounter; Y92.009 Unspecified place in unspecified non-institutional (private) residence as the place of occurrence of the external cause
CPT/HCPCS: 72100; 72220; 99285; 96374; 96375; J2360; J1170

== ENCOUNTER 2021-08-24 05:44 | Emergency (ER) | payer MEDICARE, BC ==
[2021-08-24] MEDS ORDERED: SODIUM CHLORIDE 0.9% 500 ML 500 ML IV STA (06:20)
[2021-08-24] MEDS ORDERED: MORPHINE SULFATE 4 MG/ML SYRINGE IVP STA (06:30)
[2021-08-24] MEDS ORDERED: ONDANSETRON 4 MG/2 ML VIAL IVP STA (06:30)
--- NOTE | 2021-08-24 06:33 | ED ---
General Adult HPI - General Chief complaint: Back Pain/Injury Stated complaint: Back pain Time Seen by Provider: 08/24/21 06:06 Source: patient, EMS Mode of arrival: EMS - History of Present Illness Initial comments: 86-year-old female with a past medical history of asthma, hyperlipidemia, hypertension presents to the emergency room for a chief complaint of tailbone and back pain. Patient reports that she fell 3 days ago after tripping on her buttocks. Patient states her tailbone and low back hurt. At that time she had come into the emergency room and had negative x-rays. Patient states she has been taking pain medications at home but it is still hurting. Patient does state sometimes her legs feel tingly. Denies weakness in the legs. Denies blood or bowel changes. Denies saddle anesthesia. Patient does not take blood thinners. Did not hit her head.Patient has no other complaints at this time including shortness of breath, chest pain, abdominal pain, nausea or vomiting, headache, or visual changes. - Related Data Home Medications Medication Instructions Recorded Confirmed Atorvastatin [Lipitor] 40 mg PO HS 06/25/14 05/26/21 Budesonide-Formot 160-4.5 Mcg 2 puff INHALATION RT-DAILY 06/25/14 05/26/21 [Symbicort 160-4.5 Mcg Inhaler] Dicyclomine [Bentyl] 10 mg PO QID PRN 06/25/14 05/26/21 Gabapentin [Neurontin] 300 mg PO Q6H 06/25/14 05/26/21 Isosorbide Mononitrate [Imdur] 30 mg PO HS 06/25/14 05/26/21 Multivitamins, Thera [Multivitamin 1 tab PO DAILY 06/25/14 05/26/21 (formulary)] atenoloL [Tenormin] 25 mg PO BID 06/25/14 05/26/21 lisinopriL 40 mg PO DAILY@1400 06/25/14 05/26/21 Zolpidem Tartrate [Ambien] 5 mg PO HS 06/24/16 05/26/21 traMADol HCL [Ultram] 50 mg PO QID PRN 06/24/16 05/26/21 Esomeprazole Magnesium [NexIUM] 20 mg PO DAILY 02/27/17 05/26/21 Docusate [Colace] 100 mg PO HS 08/03/20 05/26/21 Cholecalciferol [Vitamin D3 (25 25 mcg PO DAILY 05/26/21 05/26/21 Mcg = 1000 Iu)] Nystatin 100,000Unit/gm Cream 1 applic TOPICAL TID PRN 08/24/21 08/24/21 [Mycostatin Cream] Previous Rx's Medication Instructions Recorded HYDROcodone/APAP 7.5-325MG [[place] 1 tab PO Q6HR PRN 3 Days #12 tab 08/21/21 7.5-325] tiZANidine [Zanaflex] 2 mg PO Q8HR PRN 5 Days #15 tablet 08/21/21 Allergies Allergy/AdvReac Type Severity Reaction Status Date / Time adhesive Allergy developed Verified 08/24/21 09:08 black lump cephalexin Allergy Rash/Hives Verified 08/24/21 09:08 diphenhydramine HCl Allergy "throat Verified 08/24/21 09:08 [From Benadryl] felt like it was closing" ibuprofen Allergy Unknown Verified 08/24/21 09:08 latex Allergy Unknown Verified 08/24/21 09:08 nickel Allergy Rash/Hives Verified 08/24/21 09:08 Penicillins Allergy Itching Verified 08/24/21 09:08 Sulfa (Sulfonamide Allergy Itching Verified 08/24/21 09:08 Antibiotics) codeine AdvReac Nausea & Verified 08/24/21 09:08 Vomiting Review of Systems ROS Statement: Those systems with pertinent positive or pertinent negative responses have been documented in the HPI. ROS Other: All systems not noted in ROS Statement are negative. Past Medical History Past Medical History: Asthma, Chest Pain / Angina, GERD/Reflux, Hyperlipidemia, Hypertension, Osteoarthritis (OA), Thyroid Disorder Additional Past Medical History / Comment(s): Palpitations, murmur, sinus tach many years ago, bronchospasms, black mold exposure years ago, gastric ulcer, hiatal hernia, ulcerative colitis, diverticular disease, constipation, hypoglycemia, benign thyroid nodules/partial thyroidectomy, "aortic and R groin blockages", occasional bilateral pedal edema, L shoulder pain/adhesive capsulitis/decreased ROM/ L arm neuropathy, chronic low back pain History of Any Multi-Drug Resistant Organisms: None Reported Past Surgical History: Breast Surgery, Heart Catheterization, Hysterectomy, Tonsillectomy Additional Past Surgical History / Comment(s): EGD, colonoscopy, partial thyroidectomy, R breast benign lumpectomy, bilateral cataracts removed/lens implants, 04/2020 cardiac cath-treated medically. Past Anesthesia/Blood Transfusion Reactions: Motion Sickness Additional Past Anesthesia/Blood Transfusion Reaction / Comment(s): Pt received blood with childbirth many years ago without reaction. Past Psychological History: Anxiety Smoking Status: Former smoker Past Alcohol Use History: Rare Past Drug Use History: None Reported - Past Family History Daughter(s) Family Medical History: Cancer Father Family Medical History: Diabetes Mellitus Additional Family Medical History / Comment(s): Father developed blindness. Mother Family Medical History: Myocardial Infarction ([place]) Additional Family Medical History / Comment(s): Mother had her first [place] at the age of 35-40 yrs old. Son(s) Family Medical History: Coronary Artery Disease (CAD), Myocardial Infarction ([place]) Additional Family Medical History / Comment(s): Son has multiple cardiac stents/CABG and had his first [place] in his 40s. General Exam General appearance: alert, in no apparent distress Head exam: Present: atraumatic Eye exam: Present: normal appearance, PERRL, EOMI. Absent: scleral icterus, conjunctival injection ENT exam: Present: normal exam, mucous membranes moist Neck exam: Present: normal inspection, full ROM. Absent: tenderness Respiratory exam: Present: normal lung sounds bilaterally. Absent: respiratory distress, wheezes Cardiovascular Exam: Present: regular rate, normal rhythm, normal heart sounds GI/Abdominal exam: Present: soft, normal bowel sounds. Absent: distended, tenderness Back exam: Present: vertebral tenderness (Lumbar tenderness noted, no ecchymosis or external signs of trauma.). Absent: CVA tenderness (R), CVA tenderness (L) Course Vital Signs 08/24/21 08/24/21 05:51 08:47 Temperature 98.1 F 98.4 F Pulse Rate 64 76 Respiratory 18 16 Rate Blood Pressure 182/88 142/63 O2 Sat by Pulse 95 94 L Oximetry Medical Decision Making - Medical Decision Making vitals are stable. Patient is well appearing. Initially oxygen in the lower 90s however patient is supposed to be on O2 from Covid last year and was started on this. BC unremarkable. CMP does show some evidence of dehydration. Patient was given fluids. CT lumbar spine revealed anterior wedging of T12 vertebrae 10-15%, could be an acute fracture. This is likely because patient's pain and where she is tender. She was given pain medication. She is able to ambulate. Neurovascular status intact in the lower legs. Patient lives at an assisted living home where they do help significantly with her ADLs. At this time patient is stable for discharge home. We will send her home with Yajoya as her pain medication was making her nauseous. We will start her on a TLSO brace and refer her to orthopedics. She will return here for any worsening symptoms. He says discussed with her daughter who is comfortable picking her up from the hospital. - Lab Data Result diagrams: 08/24/21 07:21 10 07:21 Lab Results 08/24/21 08/24/21 Range/Units 07:21 07:21 WBC 9.9 (3.8-10.6) k/uL RBC 4.38 (3.80-5.40) m/uL Hgb 13.1 (11.4-16.0) gm/dL Hct 41.4 (34.0-46.0) % MCV 94.6 (80.0-100.0) fL MCH 30.0 (25.0-35.0) pg MCHC 31.7 (31.0-37.0) g/dL RDW 13.7 (11.5-15.5) % Plt Count 139 L (150-450) k/uL MPV 8.5 Neutrophils % 83 % Lymphocytes % 9 % Monocytes % 5 % Eosinophils % 1 % Basophils % 0 % Neutrophils # 8.1 H (1.3-7.7) k/uL Lymphocytes # 0.9 L (1.0-4.8) k/uL Monocytes # 0.5 (0-1.0) k/uL Eosinophils # 0.1 (0-0.7) k/uL Basophils # 0.0 (0-0.2) k/uL Sodium 138 (137-145) mmol/L Potassium 4.8 (3.5-5.1) mmol/L Chloride 102 (98-107) mmol/L Carbon Dioxide 25 (22-30) mmol/L Anion Gap 11 mmol/L BUN 43 H (7-17) mg/dL Creatinine 0.86 (0.52-1.04) mg/dL Est GFR (CKD-EPI)AfAm 72 (>60 ml/min/1.73 sqM) Est GFR (CKD-EPI)NonAf 62 (>60 ml/min/1.73 sqM) Glucose 124 H (74-99) mg/dL Calcium 10.4 H (8.4-10.2) mg/dL Magnesium 2.4 H (1.6-2.3) mg/dL Total Bilirubin 0.4 (0.2-1.3) mg/dL AST 27 (14-36) U/L ALT 18 (4-34) U/L Alkaline Phosphatase 123 (38-126) U/L Total Protein 6.9 (6.3-8.2) g/dL Albumin 4.1 (3.5-5.0) g/dL Disposition Clinical Impression: T12 compression fracture Disposition: HOME SELF-CARE Condition: Good Instructions (If sedation given, give patient instructions): Vertebral Compression Fracture (ED) Additional Instructions: Give Alexander as needed for pain. Give Zofran for nausea. Follow up with orthopedics by calling today for the earliest appointment. Use TLSO brace. Return to the emergency room for any worsening symptoms. Is patient prescribed a controlled substance at d/c from ED?: No Referrals: Cheyanne Garcia III, MD [Primary Care Provider] - 1-2 days You Arenas MD [STAFF PHYSICIAN] - 1-2 days Time of Disposition: 09:23
--- NOTE | 2021-08-24 06:51 | CT ---
EXAMINATION TYPE: CT pelvis wo con DATE OF EXAM: 08/24/2021 COMPARISON: None HISTORY: pain Fall CT DLP: 359.6 mGycm Automated exposure control for dose reduction was used. Images obtained from the iliac crests to the subtrochanteric femurs without contrast. The pelvic ring appears intact. Sacroiliac joints are intact. Proximal femurs and hip joints are inta ct. There is no evidence of hip dysplasia. Hip joint spaces are fairly normal. There is some retained fecal material in the rectum. There is sigmoid diverticulosis. There is no marah e fluid in the pelvis. Bladder distends smoothly. There is no inguinal hernia. The appendix appears n ormal. There is no mesenteric edema. There is no evidence of ascites. IMPRESSION: Constipation. Sigmoid diverticulosis without diverticulitis. No evidence of a pelvic fracture.
--- NOTE | 2021-08-24 06:55 | CT ---
EXAMINATION TYPE: CT lumbar spine wo con DATE OF EXAM: 08/24/2021 COMPARISON: None HISTORY: pain CT DLP: 907 mGycm Automated exposure control for dose reduction was used. Images obtained from the level of T12-S1 vertebra with no contrast. The lumbar vertebra have fairly normal alignment. Disc spaces are normal for age. There is no signifi cant compression fracture. There is anterior wedging of the T12 vertebral body 10-15%. There is depre ssion of the superior endplate of L1 5 percent. The posterior elements are intact. There is no lumbar paraspinal mass. Abdominal aorta is atheromatous. 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 The facet joints are intact. Sacroiliac joints are intact. There is no evidence of lumbar spinal stenosis. There is small posterior calcified disc herniation at L1-2 and L2-3. IMPRESSION: Degenerative changes in the lumbar spine. No acute fracture seen of the lumbar spine. There is 5% wed ging of L1 vertebra that appears old. Atherosclerotic abdominal aorta. There is anterior wedging of T12 vertebra 10-15% of uncertain age. This could be an acute fracture.
[2021-08-24 07:45] LABS: Basophils % (A) 0 %; Eosinophils # (A) 0.1 k/uL (0-0.7); Eosinophils % (A) 1 %; HCT 41.4 % (34.0-46.0); HGB 13.1 gm/dL (11.4-16.0); Lymphocytes # (A) 0.9 k/uL (1.0-4.8); Lymphocytes % (A) 9 %; MCHC 31.7 g/dL (31.0-37.0); MCV 94.6 fL (80.0-100.0); Mean Platelet Volume 8.5; Monocytes # (A) 0.5 k/uL (0-1.0); Monocytes % (A) 5 %; Neutrophils # (A) 8.1 k/uL (1.3-7.7); Neutrophils % (A) 83 %; Platelet Count 139 k/uL (150-450); RBC 4.38 m/uL (3.80-5.40); RDW 13.7 % (11.5-15.5); WBC 9.9 k/uL (3.8-10.6)
[2021-08-24 08:02] LABS: Albumin 4.1 g/dL (3.5-5.0); Calcium 10.4 mg/dL (8.4-10.2); Magnesium 2.4 mg/dL (1.6-2.3); Potassium 4.8 mmol/L (3.5-5.1); Total Bilirubin 0.4 mg/dL (0.2-1.3); Total Protein 6.9 g/dL (6.3-8.2)
[2021-08-24] MEDS ORDERED: HYDROmorphone 0.5 MG/0.5 ML SYRINGE IVP STA (08:33)
[2021-08-24] MEDS ORDERED: METOCLOPRAMIDE 5 MG/ML 2 ML VIAL IVP STA (08:34)
[2021-08-24 08:48] VITALS: BP 142/63; PULSE 76; RESP 16; TEMP 98.4
[2021-08-24] MEDS ORDERED: KETOROLAC 15 MG/ML 1 ML VIAL IVP STA (09:09)
== END 2021-08-24 09:46 | disposition home or self-care (01) ==
LOC: EC 05:44
DX: S22.080A Wedge compression fracture of T11-T12 vertebra, initial encounter for closed fracture (principal); J45.909 Unspecified asthma, uncomplicated; I10 Essential (primary) hypertension; E78.5 Hyperlipidemia, unspecified; M19.90 Unspecified osteoarthritis, unspecified site; Z79.899 Other long term (current) drug therapy; Z87.891 Personal history of nicotine dependence; Z91.09 Other allergy status, other than to drugs and biological substances; Z88.6 Allergy status to analgesic agent; Z91.040 Latex allergy status; Z88.0 Allergy status to penicillin; Z88.2 Allergy status to sulfonamides; Z88.1 Allergy status to other antibiotic agents; Z88.5 Allergy status to narcotic agent; Z79.51 Long term (current) use of inhaled steroids; W01.0XXA Fall on same level from slipping, tripping and stumbling without subsequent striking against object, initial encounter
CPT/HCPCS: 36415; 80053; 83735; 85025; 72192; 72131; 99284; 96374 ×2; 96375; 96361; J2270; J2765; J2405; J1885; J1170

== ENCOUNTER → 2022-03-29 | Outpatient (CLI) | payer MEDICARE, BC ==
--- NOTE | 2022-03-29 16:43 | US ---
EXAMINATION TYPE: US venous doppler duplex LE RT DATE OF EXAM: 03/29/2022 4:20 PM COMPARISON: NONE CLINICAL HISTORY: M25.561 Pain in right knee, R60.9, M79.661, I80.9. Right leg pain SIDE PERFORMED: Right TECHNIQUE: The lower extremity deep venous system is examined utilizing real time linear array sonog mario alberto with graded compression, doppler sonography and color-flow sonography. VESSELS IMAGED: Common Femoral Vein Deep Femoral Vein Greater Saphenous Vein * Femoral Vein Popliteal Vein Small Saphenous Vein * Proximal Calf Veins (* superficial vessels) Right Leg: Appears negative for DVT 1.7 x 1.1 x 1.6cm Simon's cyst right popliteal fossa IMPRESSION: No evidence of right leg deep vein thrombosis. There is small popliteal cyst.
== END | disposition home or self-care (01) ==
LOC: RADUSWWP 16:02
PROVIDERS: ATTEND Orthopaedic Surgery
DX: M71.21 Synovial cyst of popliteal space [Baker], right knee (principal); R60.9 Edema, unspecified; M79.661 Pain in right lower leg; I80.9 Phlebitis and thrombophlebitis of unspecified site

== ENCOUNTER 2023-10-24 21:03 | Inpatient (IN) | payer MEDICARE, BC ==
[2023-10-24 21:32] LABS: Basophils % (A) 0 %; Eosinophils # (A) 0.3 k/uL (0-0.7); Eosinophils % (A) 5 %; HCT 32.5 % (34.0-46.0); HGB 10.2 gm/dL (11.4-16.0); Hypochromasia Marked; Lymphocytes # (A) 0.6 k/uL (1.0-4.8); Lymphocytes % (A) 12 %; MCH 27.2 pg (25.0-35.0); MCHC 31.4 g/dL (31.0-37.0); MCV 86.8 fL (80.0-100.0); Mean Platelet Volume 7.5; Monocytes # (A) 0.4 k/uL (0-1.0); Monocytes % (A) 7 %; Neutrophils # (A) 3.8 k/uL (1.3-7.7); Neutrophils % (A) 72 %; Platelet Count 167 k/uL (150-450); RBC 3.75 m/uL (3.80-5.40); RDW 15.5 % (11.5-15.5); WBC 5.3 k/uL (3.8-10.6)
--- NOTE | 2023-10-24 21:33 | ED ---
SOB HPI - General Chief Complaint: Shortness of Breath Stated Complaint: SOB Time Seen by Provider: 10/24/23 21:05 Source: patient, family, EMS, RN notes reviewed Mode of arrival: EMS Limitations: no limitations - History of Present Illness Initial Comments: This is an 88-year-old female who presents to the emergency department for shortness of breath. Symptoms started 4 days ago. Denies any chest pain. She does have some coughing and congestion. She does not have COPD, but states that since being diagnosed with COVID about 2 years ago, she has been wearing home oxygen intermittently. She had been doing fairly well and no longer wearing the oxygen until 4 days ago, when she started wearing 2 liters of oxygen at home. When EMS arrived, they noted that her oxygen tubing was kinked, however she was still maintaining an adequate oxygen saturation of 96-97%. She received Atrovent followed by a DuoNeb breathing treatment with EMS, which she found somewhat helpful. She does not have an inhaler or any breathing treatments at home. Denies any fevers. States that she does get pneumonia fairly frequently. MD Complaint: shortness of breath, cough - Related Data Home Medications Medication Instructions Recorded Confirmed Atorvastatin [Lipitor] 40 mg PO HS 06/25/14 08/24/21 Budesonide-Formot 160-4.5 Mcg 2 puff INHALATION RT-BID 06/25/14 08/24/21 [Symbicort 160-4.5 Mcg Inhaler] Dicyclomine [Bentyl] 10 mg PO QID PRN 06/25/14 08/24/21 Gabapentin [Neurontin] 300 - 600 mg PO TID 06/25/14 08/24/21 Isosorbide Mononitrate [Imdur] 30 mg PO HS 06/25/14 08/24/21 Multivitamins, Thera [Multivitamin 1 tab PO DAILY 06/25/14 08/24/21 (formulary)] atenoloL [Tenormin] 25 mg PO BID 06/25/14 08/24/21 lisinopriL 40 mg PO DAILY@1400 06/25/14 08/24/21 Zolpidem Tartrate [Ambien] 5 mg PO HS 06/24/16 08/24/21 traMADol HCL [Ultram] 50 mg PO QID PRN 06/24/16 08/24/21 Esomeprazole Magnesium [NexIUM] 20 mg PO DAILY 02/27/17 08/24/21 Docusate [Colace] 100 mg PO HS 08/03/20 08/24/21 Cholecalciferol [Vitamin D3 (25 25 mcg PO DAILY 05/26/21 08/24/21 Mcg = 1000 Iu)] Nystatin 100,000Unit/gm Cream 1 applic TOPICAL TID PRN 08/24/21 08/24/21 [Mycostatin Cream] Previous Rx's Medication Instructions Recorded HYDROcodone/APAP 7.5-325MG [[place] 1 tab PO Q6HR PRN 3 Days #12 tab 08/21/21 7.5-325] tiZANidine [Zanaflex] 2 mg PO Q8HR PRN 5 Days #15 tablet 08/21/21 HYDROcodone/APAP 5-325MG [[place] 1 tab PO Q6HR PRN #10 tab 08/24/21 5-325] Ondansetron [Zofran ODT] 4 mg PO Q8HR PRN #15 tab 08/24/21 Allergies Allergy/AdvReac Type Severity Reaction Status Date / Time adhesive Allergy developed Verified 08/24/21 09:08 black lump cephalexin Allergy Rash/Hives Verified 08/24/21 09:08 diphenhydramine HCl Allergy "throat Verified 08/24/21 09:08 [From Benadryl] felt like it was closing" ibuprofen Allergy Unknown Verified 08/24/21 09:08 latex Allergy Unknown Verified 08/24/21 09:08 nickel Allergy Rash/Hives Verified 08/24/21 09:08 Penicillins Allergy Itching Verified 08/24/21 09:08 Sulfa (Sulfonamide Allergy Itching Verified 08/24/21 09:08 Antibiotics) codeine AdvReac Nausea & Verified 08/24/21 09:08 Vomiting Review of Systems ROS Statement: Those systems with pertinent positive or pertinent negative responses have been documented in the HPI. ROS Other: All systems not noted in ROS Statement are negative. Past Medical History Past Medical History: Asthma, Chest Pain / Angina, GERD/Reflux, Hyperlipidemia, Hypertension, Osteoarthritis (OA), Thyroid Disorder Additional Past Medical History / Comment(s): Palpitations, murmur, sinus tach many years ago, bronchospasms, black mold exposure years ago, gastric ulcer, hiatal hernia, ulcerative colitis, diverticular disease, constipation, hypoglycemia, benign thyroid nodules/partial thyroidectomy, "aortic and R groin blockages", occasional bilateral pedal edema, L shoulder pain/adhesive capsulitis/decreased ROM/ L arm neuropathy, chronic low back pain History of Any Multi-Drug Resistant Organisms: None Reported Past Surgical History: Breast Surgery, Heart Catheterization, Hysterectomy, Tonsillectomy Additional Past Surgical History / Comment(s): EGD, colonoscopy, partial thyroidectomy, R breast benign lumpectomy, bilateral cataracts removed/lens implants, 04/2020 cardiac cath-treated medically. Past Anesthesia/Blood Transfusion Reactions: Motion Sickness Additional Past Anesthesia/Blood Transfusion Reaction / Comment(s): Pt received blood with childbirth many years ago without reaction. Past Psychological History: Anxiety Smoking Status: Former smoker Past Alcohol Use History: Rare Past Drug Use History: None Reported - Past Family History Daughter(s) Family Medical History: Cancer Father Family Medical History: Diabetes Mellitus Additional Family Medical History / Comment(s): Father developed blindness. Mother Family Medical History: Myocardial Infarction (AL) Additional Family Medical History / Comment(s): Mother had her first AL at the age of 35-40 yrs old. Son(s) Family Medical History: Coronary Artery Disease (CAD), Myocardial Infarction (AL) Additional Family Medical History / Comment(s): Son has multiple cardiac stents/CABG and had his first AL in his 40s. General Exam Limitations: no limitations General appearance: alert, in no apparent distress Head exam: Present: atraumatic, normocephalic, normal inspection Respiratory exam: Present: wheezes, decreased breath sounds, prolonged expiratory Cardiovascular Exam: Present: regular rate, normal rhythm, normal heart sounds. Absent: systolic murmur, diastolic murmur, rubs, gallop, clicks Neurological exam: Present: alert, oriented X3, CN II-XII intact Psychiatric exam: Present: normal affect, normal mood Skin exam: Present: warm, dry, intact, normal color. Absent: rash Course Vital Signs 10/24/23 10/24/23 10/25/23 21:06 23:47 00:28 Temperature 97.6 F Pulse Rate 99 106 H 108 H Pulse Rate [ Fence Maker ] Respiratory 19 19 21 Rate Blood Pressure 110/59 125/69 129/60 Blood Pressure [Right Arm Supine] O2 Sat by Pulse 100 94 L 98 Oximetry 10/25/23 02:09 Temperature 98.8 F Pulse Rate Pulse Rate [ 102 H Fence Maker ] Respiratory 16 Rate Blood Pressure Blood Pressure 146/71 [Right Arm Supine] O2 Sat by Pulse 98 Oximetry Medical Decision Making - Medical Decision Making This is an 88-year-old female who presents to the emergency department for shortness of breath. Was pt. sent in by a medical professional or institution? @ -No Did you speak to anyone other than the patient for history? @ -EMS provided the information about the kinked oxygen tubing. Did you review nursing and triage notes? @ -Yes, and I agree, it is accurate with regards to the patient's symptoms. Were old charts reviewed? @ -No Differential Diagnosis? @ -Differential Dyspnea: Coronary syndrome, arrhythmia, tamponade, asthma, COPD, pulmonary embolism, pneumonia, pneumothorax, pulmonary effusion, anaphylaxis, diabetic ketoacidosis, flailed chest, pulmonary contusion, diaphragmatic rupture, anemia, neuromuscular, this is not meant to be an all-inclusive list. EKG interpreted by me (3pts min.)? @ -EKG interpreted by me demonstrating the following: Sinus rhythm. Ventricul ar rate 98 bpm, MA interval 156 ms, QRS duration 69 ms, QTC 390 ms. X-rays interpreted by me (1pt min.)? @ -Chest x-ray obtained. My interpretation identifies pulmonary vascular congestion and no consolidations or infiltrates. CT interpreted by me (1pt min.)? @ -Not obtained U/S interpreted by me (1pt. min.)? @ -Not obtained What testing was considered but not performed? (CT, X-rays, U/S, labs)? Why? @ -None What meds were considered but not given? Why? @ -None Did you discuss the management of the patient with other professionals? @ -Yes, Julio Kay with [facility], who accepts the patient for admission. Did you reconcile home meds? @ -No Was smoking cessation discussed for >3mins.? @ -No Was critical care preformed (if so, how long)? @ -No Were there social determinants of health that impacted care today? How? (Homelessness, low income, unemployed, alcoholism, drug addiction, transportation, low edu. Level, literacy, decrease access to med. care, half-way, rehab)? @ -No Was there de-escalation of care discussed even if they declined? (Discuss DNR or withdrawal of care, Hospice)? @ -No What co-morbidities impacted this encounter? (DM, HTN, Smoking, COPD, CAD, Cancer, CVA, Hep., AIDS, mental health diagnosis, sleep apnea, morbid obesity)? @ -HLD, HTN, asthma Was patient admitted / discharged? @ -Admitted. Lab work obtained demonstrating an elevated BNP of 2120 and signs of mild dehydration. Chest x-ray reveals cardiomegaly and pulmonary vascular congestion. Patient denies a hx of CHF and is not taking any diuretics. COVID, influenza, and RSV testing were negative. She was given 40mg IV lasix in the emergency department. Patient admitted to medicine for new onset CHF and dyspnea. Consult placed for cardiology. Undiagnosed new problem with uncertain prognosis? @ -None Drug Therapy requiring intensive monitoring for toxicity (Heparin, Nitro, Insulin, Cardizem)? @ -None Were any procedures done? @ -None Diagnosis/symptom? @ -New onset CHF, Dyspnea Acute, or Chronic, or Acute on Chronic? @ -Acute Uncomplicated (without systemic symptoms) or Complicated (systemic symptoms)? @ -Uncomplicated Side effects of treatment? @ -None Exacerbation, Progression, or Severe Exacerbation] @ -Not applicable Poses a threat to life or bodily function? @ -Yes This case was discussed in detail with the attending ED physician, Dr. Monge. Presentation, findings, and treatment plan discussed in detail as well. - Lab Data Result diagrams: 10/24/23 21:17 10/24/23 21:17 Lab Results 10/24/23 10/24/23 10/24/23 Range/Units 21:17 21:17 21:17 WBC 5.3 (3.8-10.6) k/uL RBC 3.75 L (3.80-5.40) m/uL Hgb 10.2 L (11.4-16.0) gm/dL Hct 32.5 L (34.0-46.0) % MCV 86.8 (80.0-100.0) fL MCH 27.2 (25.0-35.0) pg MCHC 31.4 (31.0-37.0) g/dL RDW 15.5 (11.5-15.5) % Plt Count 167 (150-450) k/uL MPV 7.5 Neutrophils % 72 % Lymphocytes % 12 % Monocytes % 7 % Eosinophils % 5 % Basophils % 0 % Neutrophils # 3.8 (1.3-7.7) k/uL Lymphocytes # 0.6 L (1.0-4.8) k/uL Monocytes # 0.4 (0-1.0) k/uL Eosinophils # 0.3 (0-0.7) k/uL Basophils # 0.0 (0-0.2) k/uL Hypochromasia Marked PT 10.6 (10.0-12.5) sec INR 1.0 (<1.2) APTT 26.1 (22.0-30.0) sec Sodium 134 L (137-145) mmol/L Potassium 4.6 (3.5-5.1) mmol/L Chloride 95 L (98-107) mmol/L Carbon Dioxide 31 H (22-30) mmol/L Anion Gap 8 mmol/L BUN 29 H (7-17) mg/dL Creatinine 0.72 (0.52-1.04) mg/dL Est GFR (CKD-EPI)AfAm 88 (>60 ml/min/1.73 sqM) Est GFR (CKD-EPI)NonAf 76 (>60 ml/min/1.73 sqM) Glucose 130 H (74-99) mg/dL Plasma Lactic Acid Caesar (0.7-2.0) mmol/L Calcium 10.3 H (8.4-10.2) mg/dL Total Bilirubin 0.5 (0.2-1.3) mg/dL AST 23 (14-36) U/L ALT 20 (4-34) U/L Alkaline Phosphatase 131 H (38-126) U/L Troponin I (0.000-0.034) ng/mL NT-Pro-B Natriuret Pep 2120 pg/mL Total Protein 5.9 L (6.3-8.2) g/dL Albumin 3.4 L (3.5-5.0) g/dL Influenza Type A (PCR) (Not Detectd) Influenza Type B (PCR) (Not Detectd) RSV (PCR) (Not Detectd) SARS-CoV-2 (PCR) (Not Detectd) 12/05/23 12/05/23 12/05/23 Range/Units 21:17 21:17 21:17 WBC (3.8-10.6) k/uL RBC (3.80-5.40) m/uL Hgb (11.4-16.0) gm/dL Hct (34.0-46.0) % MCV (80.0-100.0) fL MCH (25.0-35.0) pg MCHC (31.0-37.0) g/dL RDW (11.5-15.5) % Plt Count (150-450) k/uL MPV Neutrophils % % Lymphocytes % % Monocytes % % Eosinophils % % Basophils % % Neutrophils # (1.3-7.7) k/uL Lymphocytes # (1.0-4.8) k/uL Monocytes # (0-1.0) k/uL Eosinophils # (0-0.7) k/uL Basophils # (0-0.2) k/uL Hypochromasia PT (10.0-12.5) sec INR (<1.2) APTT (22.0-30.0) sec Sodium (137-145) mmol/L Potassium (3.5-5.1) mmol/L Chloride (98-107) mmol/L Carbon Dioxide (22-30) mmol/L Anion Gap mmol/L BUN (7-17) mg/dL Creatinine (0.52-1.04) mg/dL Est GFR (CKD-EPI)AfAm (>60 ml/min/1.73 sqM) Est GFR (CKD-EPI)NonAf (>60 ml/min/1.73 sqM) Glucose (74-99) mg/dL Plasma Lactic Acid Caesar 0.9 (0.7-2.0) mmol/L Calcium (8.4-10.2) mg/dL Total Bilirubin (0.2-1.3) mg/dL AST (14-36) U/L ALT (4-34) U/L Alkaline Phosphatase (38-126) U/L Troponin I <0.012 (0.000-0.034) ng/mL NT-Pro-B Natriuret Pep pg/mL Total Protein (6.3-8.2) g/dL Albumin (3.5-5.0) g/dL Influenza Type A (PCR) Not Detected (Not Detectd) Influenza Type B (PCR) Not Detected (Not Detectd) RSV (PCR) Not Detected (Not Detectd) SARS-CoV-2 (PCR) Not Detected (Not Detectd) - Radiology Data Radiology results: report reviewed, image reviewed Disposition Clinical Impression: New onset of congestive heart failure, Dyspnea Disposition: ADMITTED IP TO THIS HOSP
[2023-10-24 21:42] LABS: Partial Thromboplastin Time 26.1 sec (22.0-30.0); Prothrombin Time 10.6 sec (10.0-12.5)
[2023-10-24 21:45] LABS: ALT 20 U/L (4-34); AST 23 U/L (14-36); African American GFR (CKD) 88 (>60 ml/min/1.73 sqM); Albumin 3.4 g/dL (3.5-5.0); Alkaline Phosphatase 131 U/L (38-126); Anion Gap 8 mmol/L; Blood Urea Nitrogen 29 mg/dL (7-17); Calcium 10.3 mg/dL (8.4-10.2); Carbon Dioxide 31 mmol/L (22-30); Chloride 95 mmol/L (98-107); Glucose 130 mg/dL (74-99); Non-African American GFR(CKD) 76 (>60 ml/min/1.73 sqM); Potassium 4.6 mmol/L (3.5-5.1); Sodium 134 mmol/L (137-145); Total Bilirubin 0.5 mg/dL (0.2-1.3); Total Protein 5.9 g/dL (6.3-8.2)
[2023-10-24 21:53] LABS: NT-Pro-B-Type Natriuretic Pept 2120 pg/mL
--- NOTE | 2023-10-24 21:54 | XR ---
EXAMINATION TYPE: XR chest 2V DATE OF EXAM: 10/24/2023 9:43 PM CLINICAL INDICATION:Female, 88 years old with history of difficulty breathing; [facility] COMPARISON: Chest radiographs from 05/26/2021. TECHNIQUE: XR chest 2V Frontal and lateral views of the chest. FINDINGS: Lungs/Pleura: There is no evidence of pleural effusion, focal consolidation, or pneumothorax. Pulmonary vascularity: Pulmonary vascular congestion. Heart/mediastinum: Cardiomediastinal silhouette is enlarged and stable. Musculoskeletal: No acute osseous pathology. IMPRESSION: Cardiomegaly and mild pulmonary vascular congestion. Correlate with BNP for congestive heart failure.
[2023-10-24] MEDS ORDERED: FUROSEMIDE 10 MG/ML 4 ML VIAL IV STA (23:14)
[2023-10-24] MEDS ORDERED: MORPHINE SULFATE 4 MG/ML SYRINGE IV PRN (23:22)
[2023-10-24] MEDS ORDERED: NALOXONE 0.4 MG/ML 1 ML VIAL IV PRN (23:22)
[2023-10-24] MEDS ORDERED: ACETAMINOPHEN TAB 325 MG TAB PO PRN (23:22)
[2023-10-25] MEDS: amLODIPine 5 MG TAB PO SCH (08:50)
[2023-10-25] MEDS: atenoloL 25 MG TAB PO SCH ×3 (08:50→20:54)
[2023-10-25] MEDS: ASPIRIN 81 MG PO SCH ×2 (11:55→11:56)
[2023-10-25] MEDS: FUROSEMIDE 10 MG/ML 2 ML VIAL IV SCH ×2 (11:55→20:50)
[2023-10-25] MEDS: ISOSORBIDE MONONITRATE ER 30 MG TAB.ER.24H PO SCH (11:55)
--- NOTE | 2023-10-25 12:01 | P.CRDCN ---
History of Present Illness Consult date: 10/25/23 Consult reason: congestive heart failure History of present illness: History of present illness: This is an 88-year-old female patient of Dr. Leos with past medical history of valvular heart disease with aortic stenosis, mitral regurgitation, tricuspid regurgitation, history of CAD, hypertension, dyslipidemia, asthma, chronic hypoxic respiratory failure on home O2 as needed. We have been asked to evaluate the patient for new onset CHF. Patient gives history that she has had ongoing problems since starting 3 months ago she developed septic shock and was at [facility] [place] for an extended period followed by an extended recovery. 4 days ago she developed shortness of breath and dyspnea on exertion with minimal activity. She had tightness in the mid chest area which was worse with coughing. She noted increased coughing with yellow sputum production. No fever. No lower sternal edema. She does states she felt some palpitations. She denies having any blood in her stool or urine. No stroke or seizure symptoms. Chest pains deftly related to coughing. Blood pressure 170/75, heart rate 98. Telemetry is sinus rhythm. Patient is seen today in the emergency center waiting for a bed on the cardiac stepdown unit. She is status post 1 dose of IV Lasix 40 mg. Patient has history of smoking and quit 20 years ago. EKG sinus rhythm with nonspecific ST-T wave changes Chest x-ray: Cardiomegaly and mild pulmonary vascular congestion. WBC 5.3, hemoglobin 10.2, platelet count 167. INR 1. Sodium 134, potassium 4.6, chloride 95, CO2 31, BUN 29 creatinine 0.7. Glucose 130. Alkaline phosphatase 131 otherwise liver function tests are normal. Troponin negative 1. ProBNP 2119. Influenza A, influenza B, RSV, Covid 19 not detected. Home cardiac medications: Amlodipine 5 mg daily, atenolol 25 mg twice daily, atorvastatin 40 mg at bedtime, Imdur 30 mg with lunch. Cardiac catheterization in 2019 revealed minimal coronary artery disease Echocardiogram performed December 2022 in the office revealed EF of greater than 65%. Severe concentric left hypertrophy. [id number] mitral regurgitation, moderate tricuspid regurgitation, PAS P 52 mmHg. Lexiscan stress test performed 05/10/2023 in the office revealed normal myocardial perfusion imaging. No evidence of stress-induced ischemia. Normal left ventricular systolic function. Review Of Systems: At the time of my evaluation: Constitutional: No fever, no chills. No weakness, fatigue or lethargy. EENT: No headache. No dizziness. Lungs: No shortness of breath, + cough, + sputum production. No wheezing. + 3 on exertion Cardiovascular: + chest pain, no lower extremity edema. + palpitations. No paroxysmal nocturnal dyspnea. No orthopnea. No lightheadedness or dizziness. No syncopal episodes. Abdominal: No abdominal pain. No nausea, vomiting. No diarrhea. No constipation. No bloody or tarry stools. Genitourinary: No dysuria.. No urinary retention. Musculoskeletal: No myalgias. No muscle weakness, no frequent falls. No back pain. No neck pain. Integumentary: No wounds. No rash. No unusual bruising. Neurologic: No aphasia. No facial droop. No change in mentation. No head injury. No headache. Physical examination: Gen: This is an 88-year-old female resting and appears to be in no acute distress. VS: reviewed HEENT: Head is atraumatic, normocephalic. Pupils equal, round. Sclerae is anicteric. NECK: Supple. No JVD. LUNGS: Mild expiratory wheeze. No intercostal retractions. HEART: Regular rate and rhythm. Systolic murmur. ABDOMEN: Soft No tenderness. EXTREMITIES: No pedal edema. No calf tenderness. NEUROLOGICAL: Patient is awake, alert and oriented x3. Assessment: Atypical chest pain most likely secondary to musculoskeletal type pain Probable bronchitis Valvular heart disease with moderate mitral regurgitation, moderate tricuspid regurgitation History of coronary artery disease Hypertension Dyslipidemia Remote history of tobacco use Plan: Resume patient's home cardiac medications Add aspirin 81 mg daily Add Lasix 20 mg IV every 12 hours Repeat lab work in the morning Monitor I&O, daily weights, electrolytes and renal function Obtain 2-D echocardiogram and Doppler study to assess cardiac structure and function Further recommendations to follow based upon clinical course Thank you kindly for this consultation. Nurse practitioner note has been reviewed, I agree with documented findings and plan of care. Patient was seen and examined. Past Medical History Past Medical History: Asthma, Chest Pain / Angina, GERD/Reflux, Hyperlipidemia, Hypertension, Osteoarthritis (OA), Thyroid Disorder Additional Past Medical History / Comment(s): Palpitations, murmur, sinus tach many years ago, bronchospasms, black mold exposure years ago, gastric ulcer, hiatal hernia, ulcerative colitis, diverticular disease, constipation, hyp oglycemia, benign thyroid nodules/partial thyroidectomy, "aortic and R groin blockages", occasional bilateral pedal edema, L shoulder pain/adhesive capsulitis/decreased ROM/ L arm neuropathy, chronic low back pain History of Any Multi-Drug Resistant Organisms: None Reported Past Surgical History: Breast Surgery, Heart Catheterization, Hysterectomy, Tonsillectomy Additional Past Surgical History / Comment(s): EGD, colonoscopy, partial thyroidectomy, R breast benign lumpectomy, bilateral cataracts removed/lens implants, 04/2020 cardiac cath-treated medically. Past Anesthesia/Blood Transfusion Reactions: Motion Sickness Additional Past Anesthesia/Blood Transfusion Reaction / Comment(s): Pt received blood with childbirth many years ago without reaction. Past Psychological History: Anxiety Smoking Status: Former smoker Past Alcohol Use History: Rare Past Drug Use History: None Reported - Past Family History Daughter(s) Family Medical History: Cancer Father Family Medical History: Diabetes Mellitus Additional Family Medical History / Comment(s): Father developed blindness. Mother Family Medical History: Myocardial Infarction (DE) Additional Family Medical History / Comment(s): Mother had her first DE at the age of 35-40 yrs old. Son(s) Family Medical History: Coronary Artery Disease (CAD), Myocardial Infarction (DE) Additional Family Medical History / Comment(s): Son has multiple cardiac stents/CABG and had his first DE in his 40s. Medications and Allergies Home Medications Medication Instructions Recorded Confirmed Type Atorvastatin [Lipitor] 40 mg PO HS 06/25/14 10/25/23 History Budesonide-Formot 160-4.5 Mcg 2 puff INHALATION RT-BID 06/25/14 10/25/23 History [Symbicort 160-4.5 Mcg Inhaler] Gabapentin [Neurontin] 300 mg PO TID 06/25/14 10/25/23 History Isosorbide Mononitrate [Imdur] 30 mg PO W/LUNCH 06/25/14 10/25/23 History atenoloL [Tenormin] 25 mg PO BID 06/25/14 10/25/23 History traMADol HCL [Ultram] 50 mg PO BID 06/24/16 10/25/23 History Esomeprazole Magnesium [NexIUM] 20 mg PO DAILY 02/27/17 10/25/23 History Acetaminophen [Tylenol Arthritis] 1,300 mg PO BID 10/25/23 10/25/23 History Albuterol Sulfate [Proventil Hfa] 1 puff INHALATION RT-Q4H PRN 10/25/23 10/25/23 History Multivitamin [Multivitamins Adult 2 tab PO DAILY 10/25/23 10/25/23 History Gummies] Zolpidem Tartrate [Ambien Cr] 6.25 mg PO HS 10/25/23 10/25/23 History amLODIPine [Norvasc] 5 mg PO DAILY 10/25/23 10/25/23 History tiZANidine [Zanaflex] 2 mg PO HS 10/25/23 10/25/23 History Allergies Allergy/AdvReac Type Severity Reaction Status Date / Time adhesive Allergy developed Verified 10/25/23 07:59 black lump cephalexin Allergy Rash/Hives Verified 10/25/23 07:59 diphenhydramine HCl Allergy "throat Verified 10/25/23 07:59 [From Benadryl] felt like it was closing" ibuprofen Allergy Unknown Verified 10/25/23 07:59 latex Allergy Unknown Verified 10/25/23 07:59 nickel Allergy Rash/Hives Verified 10/25/23 07:59 Penicillins Allergy Itching Verified 10/25/23 07:59 Sulfa (Sulfonamide Allergy Itching Verified 10/25/23 07:59 Antibiotics) codeine AdvReac Nausea & Verified 10/25/23 07:59 Vomiting Physical Exam Vitals: Vital Signs Temp Pulse Pulse Resp BP BP Pulse Ox 10/25/23 04:00 98.4 F 96 18 147/62 100 10/25/23 02:09 98.8 F 102 H 16 146/71 98 10/25/23 00:28 108 H 21 129/60 98 10/24/23 23:47 106 H 19 125/69 94 L 10/24/23 21:06 97.6 F 99 19 110/59 100 Intake and Output 10/24/23 10/25/23 10/25/23 22:59 06:59 14:59 Output Total 350 Balance -350 Output: Urine 350 Other: Voiding Method External Catheter Weight 81.647 kg Results 10/24/23 21:17 10/24/23 21:17 Cardiac Enzymes 10/24/23 10/24/23 Range/Units 21:17 21:17 AST 23 (14-36) U/L Troponin I <0.012 (0.000-0.034) ng/mL Coagulation 10/24/23 Range/Units 21:17 PT 10.6 (10.0-12.5) sec APTT 26.1 (22.0-30.0) sec CBC 10/24/23 Range/Units 21:17 WBC 5.3 (3.8-10.6) k/uL RBC 3.75 L (3.80-5.40) m/uL Hgb 10.2 L (11.4-16.0) gm/dL Hct 32.5 L (34.0-46.0) % Plt Count 167 (150-450) k/uL Comprehensive Metabolic Panel 10/24/23 Range/Units 21:17 Sodium 134 L (137-145) mmol/L Potassium 4.6 (3.5-5.1) mmol/L Chloride 95 L (98-107) mmol/L Carbon Dioxide 31 H (22-30) mmol/L BUN 29 H (7-17) mg/dL Creatinine 0.72 (0.52-1.04) mg/dL Glucose 130 H (74-99) mg/dL Calcium 10.3 H (8.4-10.2) mg/dL AST 23 (14-36) U/L ALT 20 (4-34) U/L Alkaline Phosphatase 131 H (38-126) U/L Total Protein 5.9 L (6.3-8.2) g/dL Albumin 3.4 L (3.5-5.0) g/dL Current Medications Generic Name Dose Route Start Last Admin Trade Name Freq PRN Reason Stop Dose Admin Acetaminophen 650 mg 10/24/23 23:22 10/25/23 06:08 Acetaminophen Tab 325 Mg Tab PO 650 mg Q6HR PRN Administration Mild Pain or Fever > 100.5 Hydrocodone Bitart/Acetaminophen 1 each 10/24/23 23:22 Hydrocodone/Apap 5-325mg 1 Each Tab PO Q4HR PRN Moderate Pain (Scale 4 to 6) Morphine Sulfate 4 mg 10/24/23 23:22 Morphine Sulfate 4 Mg/Ml Syringe IV Q4HR PRN Severe Pain (Scale 7 to 10) Naloxone HCl 0.2 mg 10/24/23 23:22 Naloxone 0.4 Mg/Ml 1 Ml Vial IV Q2M PRN Opioid Reversal Ondansetron HCl 4 mg 10/24/23 23:22 Ondansetron 4 Mg/2 Ml Vial IVP Q8HR PRN Nausea And Vomiting Intake and Output 10/24/23 10/25/23 10/25/23 22:59 06:59 14:59 Output Total 350 Balance -350 Output: Urine 350 Other: Voiding Method External Catheter Weight 81.647 kg 10/24/23 21:17 10/24/23 21:17
--- NOTE | 2023-10-25 12:09 | CA ---
Transthoracic Echo Report Name: Elise Beltran Age: 88 Gender: F : 1935 Exam Date: 10/25/2023 12:00 Exam Location: [facility] Ht (in): 64 Wt (lb): 180 Ordering Physician: Kathy Valerio Attending/Referring Phys: [id number], Teodoro [employer] Kenan Mesa Procedure CPT: Indications: LVF Cardiac Hx: Technical Quality: Fair Contrast 1: Definity Total Dose (mL): 2 Contrast 2: Total Dose (mL): MEASUREMENTS (Male / Female) Normal Values 2D ECHO LV Diastolic Diameter PLAX 4.4 cm 4.2 - 5.9 / 3.9 - 5.3 cm LV Systolic Diameter PLAX 2.7 cm IVS Diastolic Thickness 0.8 cm 0.6 - 1.0 / 0.6 - 0.9 cm LVPW Diastolic Thickness 0.9 cm 0.6 - 1.0 / 0.6 - 0.9 cm LV Relative Wall Thickness 0.4 RV Internal Dim ED PLAX 2.1 cm LVOT Diameter 1.7 cm Aortic Root Diameter 2.6 cm LA Systolic Diameter LX 2.4 cm 3.0 - 4.0 / 2.7 - 3.8 cm LV Diastolic Volume MOD BP 19.8 cm??? 67 - 155 / 56 - 104 cm??? LV Systolic Volume MOD BP 7.8 cm??? 22 - 58 / 19 - 49 cm??? LV Ejection Fraction MOD BP 60.5 % >= 55 % LV Cardiac Index MOD BP 509.4 cm???/min???m??? LV Diastolic Volume MOD 4C 17.5 cm??? LV Systolic Volume MOD 4C 4.8 cm??? LV Ejection Fraction MOD 4C 72.3 % LV Cardiac Index MOD 4C 539.7 cm???/min???m??? LV Diastolic Length 4C 5.4 cm LV Systolic Length 4C 4.8 cm LV Diastolic Volume MOD 2C 22.6 cm??? LV Systolic Volume MOD 2C 11.9 cm??? LV Ejection Fraction MOD 2C 47.3 % LV Cardiac Index MOD 2C 455.1 cm???/min???m??? LV Diastolic Length 2C 5.4 cm LV Systolic Length 2C 5.2 cm LA Volume 41.7 cm??? 18 - 58 / 22 - 52 cm??? LA Volume Index 21.4 cm???/m??? 16 - 28 cm???/m??? DOPPLER AV Peak Velocity 233.5 cm/s AV Peak Gradient 21.8 mmHg LVOT Peak Velocity 102.2 cm/s LVOT Peak Gradient 4.2 mmHg LVOT Velocity Time Integral 27.1 cm LVOT Stroke Volume 62.3 cm??? LVOT Stroke Volume Index 33.3 ml/m??? LVOT Cardiac Index 2653.1 cm???/min???m??? AV Area Cont Eq pk 1.0 cm??? MV Peak Velocity 171.1 cm/s MV Peak Gradient 11.7 mmHg MV Mean Velocity 94.1 cm/s MV Mean Gradient 4.4 mmHg MV Velocity Time Integral 45.0 cm MR Peak Velocity 267.9 cm/s MR Peak Gradient 28.7 mmHg Mitral E Point Velocity 174.7 cm/s Mitral A Point Velocity 173.5 cm/s Mitral E to A Ratio 1.0 MV Deceleration Time 260.4 ms MV E' Velocity 6.9 cm/s Mitral E to MV E' Ratio 25.2 TR Peak Velocity 332.9 cm/s TR Peak Gradient 44.3 mmHg Right Ventricular Systolic Press 49.3 mmHg PV Peak Velocity 96.5 cm/s PV Peak Gradient 3.7 mmHg FINDINGS Left Ventricle Normal LV size and wall thickness. Left ventricular ejection fraction is estimated at 55-60 %. Right Ventricle Normal right ventricular size. RVSP= 49mmHg Right Atrium Normal right atrial size. Left Atrium Normal left atrial size. LA volume index= 22ml/m2 Mitral Valve Moderate to severe mitral calcification. Mitral peak gradient= 11.7mmHg. Mean gradient= 4.4mmHg. Aortic Valve Moderate AV calcification. AV peak gradient= 21.8mmHg. Tricuspid Valve Tricuspid valve not well visualized. Moderate TR. Pulmonic Valve Pulmonic valve not well visualized. Trace PI Pericardium Normal pericardium. Aorta Normal size aortic root. CONCLUSIONS Technically difficult study for interpretation. Poor acoustic windows Normal LV systolic function Severe mitral annular calcification with mild mitral stenosis Aortic sclerosis with moderate mild aortic stenosis Previewed by: Dr. Deondre Leos MD (Electronically Signed) Final Date: 25 October 2023 12:08
[2023-10-25] MEDS ORDERED: IPRATROPIUM-ALBUTEROL 3 ML NEB INHALATION PRN (12:41)
[2023-10-25] MEDS: ONDANSETRON 4 MG/2 ML VIAL IVP PRN (13:04)
[2023-10-25] MEDS: GABAPENTIN 300 MG CAP PO SCH ×2 (13:04→20:46)
--- NOTE | 2023-10-25 13:20 | HP ---
HISTORY AND PHYSICAL CHIEF COMPLAINT: Shortness of breath. HISTORY OF PRESENT ILLNESS: This 88-year-old woman with a past medical history of asthma, hypertension, hyperlipidemia, was admitted with significant shortness of breath of rather sudden onset. The patient had COVID 2 years ago. The chest x-ray which I reviewed personally showed some cardiomegaly and mild pulmonary vascular condition. The patient admitted for ECF. Cardiology evaluation in progress. A 2D echo showed normal LV dysfunction and severe mitral calcification. There is no history of any fever, rigors, or chills at this time. PAST MEDICAL HISTORY: Reviewed include asthma, GERD, hypertension, hyperlipidemia, rest of the history and rest of the chart is also reviewed. HOME MEDICATIONS: Reviewed include Ultram, doses and rest of medications noted. ALLERGIES: Reviewed include adhesives. Rest of allergies noted. FAMILY HISTORY: History of blindness and cancer. SOCIAL HISTORY: Previous history of smoking. REVIEW OF SYSTEMS: A 14-point review is negative except as mentioned earlier. PHYSICAL EXAMINATION: VITAL SIGNS: Pulse is 103, blood pressure 170/75, respirations 18. HEENT: Conjunctivae normal. NECK: No jugular venous distention. CARDIOVASCULAR: S1, S2. RESPIRATIONS: Diminished at the bases, few scattered rhonchi and crackles. ABDOMEN: Soft. LEGS: No edema. No swelling. NERVOUS SYSTEM: No focal deficit. LABORATORY DATA: Reviewed. D-dimer is 0.73. ASSESSMENT: 1. Shortness of breath, possible CHF acute exacerbation with acute diastolic dysfunction. 2. Possibly asthma/COPD. 3. Elevated D-dimer. 4. Hyponatremia. 5. History of GERD. 6. Hypertension. 7. Hyperlipidemia. 8. Multiple medical issues. RECOMMENDATIONS AND DISCUSSION: This 88-year-old woman presented with multiple medical issues, we will monitor the patient closely. We will initiate with diuresis small dose and continue to monitor, Cardiology Pulmonology consultations. Resume the home medications. Overall prognosis guarded. Further recommendations to follow. The patient will require a full admit currently. MMODL / IJN: [id number] /
[2023-10-25] MEDS: IPRATROPIUM-ALBUTEROL 3 ML NEB INHALATION SCH ×2 (15:48→21:16)
[2023-10-25] MEDS: traMADol 50 MG TAB PO SCH (20:46)
[2023-10-25] MEDS: ACETAMINOPHEN TAB 500 MG TAB PO SCH ×2 (20:50→20:54)
[2023-10-25] MEDS: ATORVASTATIN 40 MG TAB PO SCH ×2 (20:51→20:54)
[2023-10-25] MEDS ORDERED: ZOLPIDEM 5 MG TAB PO SCH (21:00)
[2023-10-25] MEDS: SYMBICORT 160-4.5 MCG INHALER INHALATION SCH (21:17)
--- NOTE | 2023-10-26 03:49 | P.CNPUL ---
History of Present Illness Consult date: 10/26/23 Requesting physician: Gretchen Montgomery Reason for consult: dyspnea Chief complaint: Shortness of breath History of present illness: Patient is a 88-year-old white female past medical history significant for asthma, chronic oxygen dependence, hyperlipidemia, hypertension, hypothyroidism, among other things. Patient is a questionable historian, she has a delayed response, but is able to answer some of my questions. She lives at [facility]. Apparently, patient presented yesterday with chief complaint of progressively worsening shortness of breath over the last 4-5 days. She does endorse a cough with yellow sputum production. Denies any fevers, chills, chest pain. Denies sick contacts. She denies COPD history, but has history of asthma. She does state that she wears 2 L of home oxygen. Denies any chest pain, heart palpitations, syncope, or lower extremity swelling. Chest x- ray on arrival showed cardiomegaly with mild pulmonary vascular congestion. NT proBNP was elevated at 2120. Follow-up echocardiogram showed a preserved left ventricular ejection fraction of 55-60%. Patient has been started on Lasix 20 mg twice a day. BMP shows sodium 134, potassium 4.6, chloride 95, serum bicarbonate 31, BUN 29, creatinine 0.72, glucose 130. Troponin is less than 0. 012. D-dimer was elevated at 0.73. Negative for influenza, RSV, COVID-19. Patient is being monitored on the cardiac stepdown unit. Review of Systems REVIEW OF SYSTEMS: CONSTITUTIONAL: Denies any recent significant weight loss or weight gain. EYES: Denies change in vision. EARS, NOSE, MOUTH, THROAT: Denies headaches, denies sore throat. CARDIOVASCULAR: Denies chest pain, palpitations or syncopal episodes. RESPIRATORY: See HPI GASTROINTESTINAL: Denies change in appetite, abdominal pain, nausea and vomiting, or diarrhea GENITOURINARY: Denies hematuria, denies infections. MUSKULOSKELETAL: Denies pain, denies swelling. INTEGUMENTARY: Denies rash, denies eczema. NEUROLOGICAL: Denies recent memory loss, no recent seizure activity. PSYCHIATRIC: Denies anxiety, denies depression. HEMATOLOGIC/LYMPHATIC: Denies anemia, denies enlarged lymph node Past Medical History Past Medical History: Asthma, Chest Pain / Angina, GERD/Reflux, Hyperlipidemia, Hypertension, Osteoarthritis (OA), Thyroid Disorder Additional Past Medical History / Comment(s): Palpitations, murmur, sinus tach many years ago, bronchospasms, black mold exposure years ago, gastric ulcer, hiatal hernia, ulcerative colitis, diverticular disease, constipation, hypoglycemia, benign thyroid nodules/partial thyroidectomy, "aortic and R groin blockages", occasional bilateral pedal edema, L shoulder pain/adhesive capsulitis/decreased ROM/ L arm neuropathy, chronic low back pain, septic shock in 2022 History of Any Multi-Drug Resistant Organisms: None Reported Past Surgical History: Breast Surgery, Heart Catheterization, Hysterectomy, Tonsillectomy Additional Past Surgical History / Comment(s): EGD, colonoscopy, partial thyroi dectomy, R breast benign lumpectomy, bilateral cataracts removed/lens implants, 04/2020 cardiac cath-treated medically. Past Anesthesia/Blood Transfusion Reactions: Motion Sickness Additional Past Anesthesia/Blood Transfusion Reaction / Comment(s): Pt received blood with childbirth many years ago without reaction. Past Psychological History: Anxiety Additional Psychological History / Comment(s): Pt resides alone in an apartment at [facility]. She uses a walker. She no longer drives, her daughter drives her to appts. She is otherwise independent. Smoking Status: Former smoker Past Alcohol Use History: Rare Additional Past Alcohol Use History / Comment(s): Pt started smoking in 1951 and quit in 2004. she was a light smoker, 3 cigarettes a day. Past Drug Use History: None Reported - Past Family History Daughter(s) Family Medical History: Cancer Father Family Medical History: Diabetes Mellitus Additional Family Medical History / Comment(s): Father developed blindness. Mother Family Medical History: Myocardial Infarction (MO) Additional Family Medical History / Comment(s): Mother had her first MO at the age of 35-40 yrs old. Son(s) Family Medical History: Coronary Artery Disease (CAD), Myocardial Infarction (MO) Additional Family Medical History / Comment(s): Son has multiple cardiac stents/CABG and had his first MO in his 40s. Medications and Allergies Home Medications Medication Instructions Recorded Confirmed Type Atorvastatin [Lipitor] 40 mg PO HS 06/25/14 10/25/23 History Budesonide-Formot 160-4.5 Mcg 2 puff INHALATION RT-BID 06/25/14 10/25/23 History [Symbicort 160-4.5 Mcg Inhaler] Gabapentin [Neurontin] 300 mg PO TID 06/25/14 10/25/23 History Isosorbide Mononitrate [Imdur] 30 mg PO W/LUNCH 06/25/14 10/25/23 History atenoloL [Tenormin] 25 mg PO BID 06/25/14 10/25/23 History traMADol HCL [Ultram] 50 mg PO BID 06/24/16 10/25/23 History Esomeprazole Magnesium [NexIUM] 20 mg PO DAILY 02/27/17 10/25/23 History Acetaminophen [Tylenol Arthritis] 1,300 mg PO BID 10/25/23 10/25/23 History Albuterol Sulfate [Proventil Hfa] 1 puff INHALATION RT-Q4H PRN 10/25/23 10/25/23 History Multivitamin [Multivitamins Adult 2 tab PO DAILY 10/25/23 10/25/23 History Gummies] Zolpidem Tartrate [Ambien Cr] 6.25 mg PO HS 10/25/23 10/25/23 History amLODIPine [Norvasc] 5 mg PO DAILY 10/25/23 10/25/23 History tiZANidine [Zanaflex] 2 mg PO HS 10/25/23 10/25/23 History Allergies Allergy/AdvReac Type Severity Reaction Status Date / Time adhesive Allergy developed Verified 10/25/23 07:59 black lump cephalexin Allergy Rash/Hives Verified 10/25/23 07:59 diphenhydramine HCl Allergy "throat Verified 10/25/23 07:59 [From Benadryl] felt like it was closing" ibuprofen Allergy Unknown Verified 10/25/23 07:59 latex Allergy Unknown Verified 10/25/23 07:59 nickel Allergy Rash/Hives Verified 10/25/23 07:59 Penicillins Allergy Itching Verified 10/25/23 07:59 Sulfa (Sulfonamide Allergy Itching Verified 10/25/23 07:59 Antibiotics) codeine AdvReac Nausea & Verified 10/25/23 07:59 Vomiting Physical Exam Vitals: Vital Signs Temp Pulse Pulse Resp BP Pulse Ox 10/25/23 21:26 94 10/25/23 21:18 93 10/25/23 17:53 98.6 F 93 17 112/59 87 L 10/25/23 17:51 98.6 F 85 18 112/59 87 L 10/25/23 16:00 98.2 F 86 85 16 148/65 98 10/25/23 15:49 88 97 10/25/23 11:59 84 16 165/75 95 10/25/23 08:56 103 H 18 170/75 97 10/25/23 04:00 98.4 F 96 18 147/62 100 Intake and Output 10/25/23 10/25/23 10/26/23 14:59 22:59 06:59 Output Total 600 450 Balance -600 -450 Output: Urine 600 450 Other: Voiding Method External Catheter Diaper External Catheter Weight 68 kg GENERAL EXAM: Alert, 88-year-old white female , comfortable in no apparent distress. HEAD: Normocephalic and atraumatic EYES: Normal reaction of pupils, equal size. NOSE: Clear with pink turbinates. THROAT: No erythema or exudates. NECK: No masses, no JVD. CHEST: No chest wall deformity. LUNGS: Equal air entry with no crackles, wheeze, rhonchi or dullness. On 3 L/m nasal cannula. No conversational dyspnea or accessory muscle use.. CVS: S1 and S2 normal with no audible murmur, regular rhythm. No extra heart sounds ABDOMEN: No hepatosplenomegaly, active bowel sounds, no guarding or rigidity. SPINE: No scoliosis or deformity SKIN: No rashes CENTRAL NERVOUS SYSTEM: Alert. Oriented to self and place. Delayed responses. No focal deficits, tone is normal in all 4 extremities. EXTREMITIES: There is no peripheral edema, clubbing, or cyanosis. Peripheral pulses are intact. Results - Laboratory Findings CBC and BMP: 10/26/23 08:49 10/26/23 08:49 PT/INR, D-dimer PT 10.6 sec (10.0-12.5) 10/24/23 21:17 INR 1.0 (<1.2) 10/24/23 21:17 D-Dimer 0.73 mg/L FEU (<0.60) H 10/25/23 11:57 Abnormal lab findings: Abnormal Labs 10/24/23 10/24/23 10/25/23 21:17 21:17 11:57 RBC 3.75 L Hgb 10.2 L Hct 32.5 L Lymphocytes # 0.6 L D-Dimer 0.73 H Sodium 134 L Chloride 95 L Carbon Dioxide 31 H BUN 29 H Glucose 130 H Calcium 10.3 H Alkaline Phosphatase 131 H Total Protein 5.9 L Albumin 3.4 L - Diagnostic Findings Chest x-ray: image reviewed Assessment and Plan Assessment: Acute on chronic hypoxemic respiratory failure, secondary to diastolic CHF exacerbation. Chest x-ray on arrival showed cardiomegaly with mild pulmonary vascular congestion. NT proBNP elevated at 2000. Possible underlying exacerbation of chronic bronchial asthma Chronic hypoxemic respiratory failure Elevated d-dimer Hyperlipidemia Hypertension Hypothyroidism Remote history of tobacco use Plan: Patient's medications, labs, chest x-ray reviewed Continue supplemental oxygen, currently on 3 L per minute nasal cannula. Continue IV diuresis Patient has already been started on DuoNeb's, Symbicort inhaler. Not particularly symptomatic for asthma exacerbation on my evaluation. Clinical suspicion for pulmonary embolism is low, however d-dimer is elevated, rule out with chest CTA We will continue to follow, and further recommendations are forthcoming I have personally seen and examined the patient, performed the documentation and the assessment and plan as written. Number of minutes spent on the visit:20 This is a joint evaluation that was done along with the nurse practitioner. This was within a more than 30 minutes. The patient presented to us with worsening shortness of breath. A CT of the chest was done that showed no ev idence of any pulmonary embolism. There was some mild emphysematous changes bilaterally and increased groundglass opacity centrally in the right upper lobe with some organizing consolidation anteriorly and centrally and posteriorly in the bilateral lower lungs with dependent atelectasis. The patient suspected to have CHF. Her proBNP level was elevated at time of admission and the level was 2120. Troponins were negative. The viral screen was also negative. Creatinine was stable at 0.7. The white cell count was at 4.7 with a hemoglobin of 10.7. The blood gas showed a pH of 7.4 with a pCO2 of 64 and pO2 of 74 consistent with chronic well compensated hypercapnic respiratory failure. The patient is known to have other comorbidities including chronic bronchial asthma, hypertension, hyperlipidemia, hypothyroidism, chronic anxiety, ulcerative colitis, diverticular disease along with chronic back pain and peripheral neuropathy. At this point in time, the patient is on oxygen at 2 L/m nasal cannula with a pulse ox of 92%. The patient's is on Lasix 20 mg IV every 12 hours. Echocardiogram was also done and it showed a normal LV function, severe mitral annular calcification with mild degree of mitral stenosis. Normal RV size. RV systolic pressure was 49. Also, the patient will have her pro-calcitonin checked. The patient is some difficulty in urination and abdominal pain. She may need a Velazquez catheter and a urinalysis to rule out underlying urinary tract infection. She may also benefit from a CAT scan of the abdomen and pelvis as the patient is having significant abdominal discomfort. We'll continue to follow. Time with Patient: Greater than 30
[2023-10-26 03:57] LABS: ABG Base Excess 14.7 mmol/L; ABG Oxygen Saturation 96.2 % (94-97); ABG PCO2 64 mmHg (35-45); ABG PO2 74 mmHg (83-108); ABG TCO2 42 mmol/L (19-24); Allen Test Performed? Yes
[2023-10-26 04:03] LABS: ABG HCO3 40 mmol/L (21-25)
[2023-10-26] MEDS: HYDROcodone/APAP 5-325MG 1 EACH TAB PO PRN (06:47)
[2023-10-26] MEDS: PANTOPRAZOLE 40 MG TABLET PO SCH (06:47)
[2023-10-26] MEDS: SYMBICORT 160-4.5 MCG INHALER INHALATION SCH ×2 (08:15→21:31)
[2023-10-26] MEDS: IPRATROPIUM-ALBUTEROL 3 ML NEB INHALATION SCH ×3 (08:15→21:31)
--- NOTE | 2023-10-26 08:50 | CT ---
EXAMINATION TYPE: CT chest angio for PE DATE OF EXAM: 10/26/2023 COMPARISON: CTA chest August 03, 2020 HISTORY: Elevated D-dimer, R/O Pulmonary Embolism CT DLP: 265.1 mGycm. Automated Exposure Control for Dose Reduction was Utilized. CONTRAST: CTA scan of the thorax is performed with IV Contrast, patient injected with 100 ml mL of Isovue 370, pulmonary embolism protocol. MIP Images are created on CT scanner and reviewed. FINDINGS: Exam slightly suboptimal as there is some respiratory motion artifact degradation. LUNGS: Mild underlying emphysematous change redemonstrated. Increased groundglass opacity centrally i n the right upper lobe with some organizing consolidation inferiorly and centrally and posteriorly in the bilateral lower lungs with dependent atelectasis bilaterally. MEDIASTINUM: There is satisfactory enhancement of the pulmonary artery and its branches, there is no CT evidence for pulmonary embolism. Enlarged pulmonary arteries are present suggesting underlying pul monary artery hypertension. Some enhancement of the thoracic aorta. There is moderate to severe mixed plaque in the descending thoracic aorta. No thoracic aortic aneurysm or dissection. There are no gre ater than 1 cm hilar or mediastinal lymph nodes. Heart size upper limits of normal. No pericardial ef fusion is seen. Coronary artery calcification is redemonstrated which is noted marker for underlying coronary artery disease. OTHER: Underlying scoliotic curvature is present. IMPRESSION: 1. No CT evidence for acute pulmonary embolism. 2. Bilateral central opacities suggestive of edema and/or developing acute infiltrates. Suspect fluid overload state. Asymmetric findings in the right upper lobe favor developing acute infiltrates.
[2023-10-26 10:04] LABS: African American GFR (CKD) 79 (>60 ml/min/1.73 sqM); Anion Gap 10 mmol/L; Blood Urea Nitrogen 36 mg/dL (7-17); Calcium 10.1 mg/dL (8.4-10.2); Carbon Dioxide 36 mmol/L (22-30); Chloride 88 mmol/L (98-107); Glucose 125 mg/dL (74-99); Non-African American GFR(CKD) 69 (>60 ml/min/1.73 sqM); Potassium 4.2 mmol/L (3.5-5.1); Sodium 134 mmol/L (137-145)
[2023-10-26 10:25] LABS: HCT 35.2 % (34.0-46.0); HGB 10.7 gm/dL (11.4-16.0); Hypochromasia Marked; MCH 26.6 pg (25.0-35.0); MCHC 30.3 g/dL (31.0-37.0); MCV 87.9 fL (80.0-100.0); Mean Platelet Volume 9.1; Platelet Count 161 k/uL (150-450); RBC 4.01 m/uL (3.80-5.40); RDW 15.1 % (11.5-15.5); WBC 4.7 k/uL (3.8-10.6)
[2023-10-26 10:37] LABS: Eosinophils # (M) 0.28 k/uL (0-0.7); Lymphocytes # (M) 0.38 k/uL (1.0-4.8); Monocytes # (M) 0.33 k/uL (0-1.0); Neutrophils # (M) 3.71 k/uL (1.3-7.7); Neutrophils % (M) 79 %; Nucleated Red Blood Cells 0 /100 WBC (0-0); Total Cells Counted 100
[2023-10-26] MEDS: traMADol 50 MG TAB PO SCH ×2 (10:52→21:54)
[2023-10-26] MEDS: ASPIRIN 81 MG PO SCH (10:52)
[2023-10-26] MEDS: GABAPENTIN 300 MG CAP PO SCH ×3 (10:52→19:55)
[2023-10-26] MEDS: amLODIPine 5 MG TAB PO SCH (10:52)
[2023-10-26] MEDS: MULTIVITAMINS, THERA 1 EACH TAB PO SCH (10:52)
[2023-10-26] MEDS: ONDANSETRON 4 MG/2 ML VIAL IVP PRN (10:53)
[2023-10-26] MEDS: FUROSEMIDE 10 MG/ML 2 ML VIAL IV SCH (10:53)
[2023-10-26] MEDS: ACETAMINOPHEN TAB 500 MG TAB PO SCH ×4 (10:53→19:55)
[2023-10-26] MEDS: atenoloL 25 MG TAB PO SCH ×2 (10:53→19:51)
[2023-10-26] MEDS ORDERED: IOPAMIDOL CONTRAST (ORAL USE) VIAL PO PRN ×2 (11:19→14:12)
--- NOTE | 2023-10-26 13:31 | P.PN ---
Subjective Progress Note Date: 10/26/23 History of present illness: This is an 88-year-old female patient of Dr. Leos with past medical history of valvular heart disease with aortic stenosis, mitral regurgitation, tricuspid regurgitation, history of CAD, hypertension, dyslipidemia, asthma, chronic hypoxic respiratory failure on home O2 as needed. We have been asked to evaluate the patient for new onset CHF. Patient gives history that she has had ongoing problems since starting 3 months ago she developed septic shock and was at [facility] for an extended period followed by an extended recovery. 4 days ago she developed shortness of breath and dyspnea on exertion with minimal activity. She had tightness in the mid chest area which was worse with coughing. She noted increased coughing with yellow sputum production. No fever. No lower sternal edema. She does states she felt some palpitations. She denies having any blood in her stool or urine. No stroke or seizure symptoms. Chest pains deftly related to coughing. Blood pressure 170/75, heart rate 98. Telemetry is sinus rhythm. Patient is seen today in the emergency center waiting for a bed on the cardiac stepdown unit. She is status post 1 dose of IV Lasix 40 mg. Patient has history of smoking and quit 20 years ago. EKG sinus rhythm with nonspecific ST-T wave changes Chest x-ray: Cardiomegaly and mild pulmonary vascular congestion. WBC 5.3, hemoglobin 10.2, platelet count 167. INR 1. Sodium 134, potassium 4.6, chloride 95, CO2 31, BUN 29 creatinine 0.7. Glucose 130. Alkaline phosphatase 131 otherwise liver function tests are normal. Troponin negative 1. ProBNP 0. Influenza A, influenza B, RSV, Covid 19 not detected. Home cardiac medications: Amlodipine 5 mg daily, atenolol 25 mg twice daily, atorvastatin 40 mg at bedtime, Imdur 30 mg with lunch. Cardiac catheterization in 2019 revealed minimal coronary artery disease Echocardiogram performed December 2022 in the office revealed EF of greater than 65%. Severe concentric left hypertrophy. [id number] mitral regurgitation, moderate tricuspid regurgitation, PAS P 52 mmHg. Lexiscan stress test performed 05/10/2023 in the office revealed normal myocardial perfusion imaging. No evidence of stress-induced ischemia. Normal left ventricular systolic function. 10/26 Patient is seen today in follow-up on the cardiac stepdown unit. He states that she is still having shortness of breath not better since he came in. Not a lot of coughing. Echocardiogram results reviewed with the patient. Yesterday patient was maintained on Lasix 20 mg IV every 12 hours. Repeat blood work today reveals hemoglobin of 10.7, sodium 134, potassium 4.2, BUN 36 and creatinine 0.78. CTA of the chest revealed no pulmonary embolism. Bilateral central opacities suggestive of edema and/or developing acute infiltrates. Suspect fluid overload state. Asymmetric findings in the right upper lobe fever developing acute infiltrates. Echocardiogram reveals technically difficult study. Poor acoustic windows. Normal LV systolic function. Severe mitral annular calcification with mild mitral stenosis. Aortic sclerosis with moderate mild aortic stenosis. Imaging is A. fib in the high 90s. Blood pressure 149/67, pulse ox 92% on 2 L, afebrile. Weight appears to be down 3 kg. She has a negative fluid balance this morning of 1050. Physical examination: Gen: This is an 88-year-old female resting and appears to be in no acute distress. VS: reviewed HEENT: Head is atraumatic, normocephalic. Pupils equal, round. Sclerae is anicteric. NECK: Supple. No JVD. LUNGS: Initially bilaterally. No intercostal retractions. HEART: Regular rate and rhythm. Systolic murmur. ABDOMEN: Soft No tenderness. EXTREMITIES: No pedal edema. No calf tenderness. NEUROLOGICAL: Patient is awake, alert and oriented x3. Assessment: Atypical chest pain most likely secondary to musculoskeletal type pain Probable bronchitis Valvular heart disease with moderate mitral regurgitation, moderate tricuspid regurgitation History of coronary artery disease Hypertension Dyslipidemia Remote history of tobacco use Plan: Continue patient's home cardiac medications Continue aspirin 81 mg daily Transition IV Lasix to oral 20 mg daily Cardiology will sign off this case and follow on an as-needed basis. Please reconsult for any new concerns. Patient may follow-up in the office in one to 2 weeks. Nurse practitioner note has been reviewed, I agree with documented findings and plan of care. Patient was seen and examined. Objective - Vital Signs Vital signs: Vital Signs Temp 98.5 F 10/26/23 10:47 Pulse 107 H 10/26/23 10:47 Resp 20 10/26/23 10:47 BP 149/67 10/26/23 10:47 Pulse Ox 92 L 10/26/23 10:47 FiO2 Intake & Output 10/25/23 10/26/23 10/26/23 18:59 06:59 18:59 Output Total 600 450 Balance -600 -450 Weight 68 kg 65 kg Output: Urine 600 450 Other: Voiding Method Diaper Diaper External Catheter External Catheter - Labs CBC & Chem 7: 10/26/23 08:49 10/26/23 08:49 Labs: Abnormal Lab Results - Last 24 Hours (Table) 10/25/23 10/26/23 10/26/23 Range/Units 11:57 03:54 08:49 Hgb (11.4-16.0) gm/dL MCHC (31.0-37.0) g/dL Lymphocytes # (Manual) (1.0-4.8) k/uL D-Dimer 0.73 H (<0.60) mg/L FEU ABG pCO2 64 H (35-45) mmHg ABG pO2 74 L (83-108) mmHg ABG HCO3 40 H* (21-25) mmol/L ABG Total CO2 42 H (19-24) mmol/L Sodium 134 L (137-145) mmol/L Chloride 88 L (98-107) mmol/L Carbon Dioxide 36 H (22-30) mmol/L BUN 36 H (7-17) mg/dL Glucose 125 H (74-99) mg/dL 10/26/23 Range/Units 08:49 Hgb 10.7 L (11.4-16.0) gm/dL MCHC 30.3 L (31.0-37.0) g/dL Lymphocytes # (Manual) 0.38 L (1.0-4.8) k/uL D-Dimer (<0.60) mg/L FEU ABG pCO2 (35-45) mmHg ABG pO2 (83-108) mmHg ABG HCO3 (21-25) mmol/L ABG Total CO2 (19-24) mmol/L Sodium (137-145) mmol/L Chloride (98-107) mmol/L Carbon Dioxide (22-30) mmol/L BUN (7-17) mg/dL Glucose (74-99) mg/dL
[2023-10-26 14:09] LABS: Appearance,Urine Clear (Clear); Color,Urine Orange
[2023-10-26 14:10] LABS: Bilirubin,Urine Negative (Negative); Glucose,Urine (UA) Negative (Negative); Ketones,Urine Negative (Negative); Protein,Urine Negative (Negative)
[2023-10-26 14:11] LABS: Blood,Urine Negative (Negative); Leukocyte Esterase,Urine Negative (Negative); Nitrite,Urine Negative (Negative); Urobilinogen,Urine 0.2 mg/dL (<2.0)
[2023-10-26] MEDS: ISOSORBIDE MONONITRATE ER 30 MG TAB.ER.24H PO SCH (14:19)
--- NOTE | 2023-10-26 15:18 | CT ---
EXAMINATION TYPE: CT abdomen pelvis wo con DATE OF EXAM: 10/26/2023 HISTORY: Abdominal pain. CT DLP: 505.5 mGycm. Automated Exposure Control for Dose Reduction was Utilized. TECHNIQUE: CT scan of the abdomen and pelvis is performed with oral but without IV contrast. COMPARISON: NONE FINDINGS: Within the limitations of a non-contrast study, the following observations are made. LUNG BASES: Dependent opacity favors atelectasis. Patient level of the mitral and aortic valve. Coron max artery calcification is seen. LIVER/GB: No significant abnormality is appreciated. PANCREAS: Mild to moderate generalized fat replaced atrophy. SPLEEN: No significant abnormality is seen. ADRENALS: No significant abnormality is seen. KIDNEYS: Cortical thinning in both kidneys with occasional thin-walled cyst consistent with product o f chronic medical renal disease. Secretion from recent contrast-enhanced CT is seen in the collecting systems and filling the bladder. No hydronephrosis seen bilaterally. Velazquez catheter mostly decompres ses the bladder. BOWEL: Oral contrast reaches the terminal ileum. There is moderate to severe wall thickening in the g astric fundus and proximal to mid body. No abnormal small or large bowel dilatation is seen. Some div erticula in the left and sigmoid colon. There is mild fecal prominence in the sigmoid colon. There is more moderate fecal prominence in the rectum. GENITAL ORGANS: Uterus is surgically absent. LYMPH NODES: No greater than 1cm abdominal or pelvic lymph nodes are appreciated. OSSEOUS STRUCTURES: Mild chronic compression type fracture at T12 level. OTHER: Moderate to severe atherosclerotic change seen in ectatic abdominal aorta extending into branc h vessels. IMPRESSION: 1. There is moderate distal colonic fecal stasis or constipation. No bowel obstruction. Correlate cli nically. 2. Suspect gastritis involving the fundus and body of the stomach. Correlate clinically.
[2023-10-26] MEDS: ATORVASTATIN 40 MG TAB PO SCH (19:55)
[2023-10-27] MEDS: PANTOPRAZOLE 40 MG TABLET PO SCH (04:57)
[2023-10-27] MEDS: HYDROcodone/APAP 5-325MG 1 EACH TAB PO PRN (04:57)
[2023-10-27] MEDS: IPRATROPIUM-ALBUTEROL 3 ML NEB INHALATION SCH ×3 (07:50→21:16)
[2023-10-27] MEDS: SYMBICORT 160-4.5 MCG INHALER INHALATION SCH ×2 (07:50→21:16)
[2023-10-27 08:35] LABS: Basophils % (A) 0 %; Eosinophils # (A) 0.4 k/uL (0-0.7); Eosinophils % (A) 5 %; HCT 36.4 % (34.0-46.0); Hypochromasia Marked; Lymphocytes # (A) 0.5 k/uL (1.0-4.8); Lymphocytes % (A) 7 %; MCH 26.6 pg (25.0-35.0); MCHC 30.3 g/dL (31.0-37.0); MCV 87.8 fL (80.0-100.0); Mean Platelet Volume 7.9; Monocytes # (A) 0.4 k/uL (0-1.0); Monocytes % (A) 6 %; Neutrophils # (A) 5.3 k/uL (1.3-7.7); Neutrophils % (A) 79 %; Platelet Count 206 k/uL (150-450); RBC 4.15 m/uL (3.80-5.40); RDW 15.4 % (11.5-15.5); WBC 6.8 k/uL (3.8-10.6)
[2023-10-27 08:51] LABS: African American GFR (CKD) 76 (>60 ml/min/1.73 sqM); Anion Gap 9 mmol/L; Blood Urea Nitrogen 40 mg/dL (7-17); Calcium 10.3 mg/dL (8.4-10.2); Carbon Dioxide 36 mmol/L (22-30); Chloride 88 mmol/L (98-107); Glucose 114 mg/dL (74-99); Non-African American GFR(CKD) 66 (>60 ml/min/1.73 sqM); Potassium 4.6 mmol/L (3.5-5.1); Sodium 133 mmol/L (137-145)
[2023-10-27] MEDS: ONDANSETRON 4 MG/2 ML VIAL IVP PRN (09:23)
[2023-10-27] MEDS: ACETAMINOPHEN TAB 500 MG TAB PO SCH ×3 (09:23→19:31)
[2023-10-27] MEDS: traMADol 50 MG TAB PO SCH ×2 (09:24→20:36)
[2023-10-27] MEDS: MULTIVITAMINS, THERA 1 EACH TAB PO SCH (09:24)
[2023-10-27] MEDS: FUROSEMIDE 20 MG TAB PO SCH (09:24)
[2023-10-27] MEDS: GABAPENTIN 300 MG CAP PO SCH ×3 (09:24→20:37)
[2023-10-27] MEDS: ASPIRIN 81 MG PO SCH (09:24)
[2023-10-27] MEDS: atenoloL 25 MG TAB PO SCH ×2 (09:25→20:37)
[2023-10-27] MEDS: amLODIPine 5 MG TAB PO SCH (09:25)
[2023-10-27] MEDS: ISOSORBIDE MONONITRATE ER 30 MG TAB.ER.24H PO SCH (12:34)
--- NOTE | 2023-10-27 12:47 | P.PN ---
Subjective Progress Note Date: 10/27/23 Patient is a 88-year-old white female past medical history significant for asthma, chronic oxygen dependence, hyperlipidemia, hypertension, hypothyroidism, among other things. Patient is a questionable historian, she has a delayed response, but is able to answer some of my questions. She lives at [facility] [place]. Apparently, patient presented yesterday with chief complaint of progressively worsening shortness of breath over the last 4-5 days. She does endorse a cough with yellow sputum production. Denies any fevers, chills, chest pain. Denies sick contacts. She denies COPD history, but has history of asthma. She does state that she wears 2 L of home oxygen. Denies any chest pain, heart palpitations, syncope, or lower extremity swelling. Chest x- ray on arrival showed cardiomegaly with mild pulmonary vascular congestion. NT proBNP was elevated at 2120. Follow-up echocardiogram showed a preserved left ventricular ejection fraction of 55-60%. Patient has been started on Lasix 20 mg twice a day. BMP shows sodium 134, potassium 4.6, chloride 95, serum bicarbonate 31, BUN 29, creatinine 0.72, glucose 130. Troponin is less than 0.012. D-dimer was elevated at 0.73. Negative for influenza, RSV, COVID-19. Patient is being monitored on the cardiac stepdown unit. on today's evaluation of 10/27/2023, the patient does not seem to be an aberrant respiratory distress. He is complaining some abdominal discomfort. She is a very poor historian. I think there is underlying confusion. She comes to us from an assisted livingBlood work is essentially unremarkable. Hemoglobin is at 6.8, the white cell count is 11.0 and a platelet count is at 206. Sodium level is at 133, bicarb is at 36, BUN is at 40 with a creatinine of 0.8. Calcium levels at 10.3. UA is negative. CAT scan of the abdomen was also done yesterday and it showed evidence of moderate distal colonic fecal stasis/constipation. There is no indication of any bowel obstruction. There may be some underlying gastritis. The patient is resting comfortably in bed. She is currently on 2 L of oxygen by nasal cannula. Echo of the heart was completed and the patient was found to have a normal ejection fraction of 55- 60%. Right ventricular systolic pressure was estimated to be at 49. She has moderate to severe mitral valve calcification with aortic valve calcification and she has also mild mitral stenosis. Objective - Vital Signs Vital signs: Vital Signs Temp 98.1 F 10/27/23 09:20 Pulse 101 H 10/27/23 09:20 Resp 20 10/27/23 09:20 BP 136/69 10/27/23 09:20 Pulse Ox 94 L 10/27/23 09:20 FiO2 Intake & Output 10/26/23 10/27/23 10/27/23 18:59 06:59 18:59 Intake Total 500 60 Output Total 600 575 Balance -100 -575 60 Weight 65 kg Intake: Oral 500 60 Output: Urine 600 575 Other: Voiding Method Indwelling Catheter Indwelling Catheter - Exam GENERAL EXAM: Alert, 88-year-old white female , comfortable in no apparent distress. HEAD: Normocephalic and atraumatic EYES: Normal reaction of pupils, equal size. NOSE: Clear with pink turbinates. THROAT: No erythema or exudates. NECK: No masses, no JVD. CHEST: No chest wall deformity. LUNGS: Equal air entry with no crackles, wheeze, rhonchi or dullness. On 3 L/m nasal cannula. No conversational dyspnea or accessory muscle use.. CVS: S1 and S2 normal with no audible murmur, regular rhythm. No extra heart sounds ABDOMEN: No hepatosplenomegaly, active bowel sounds, no guarding or rigidity. SPINE: No scoliosis or deformity SKIN: No rashes CENTRAL NERVOUS SYSTEM: Alert. Oriented to self and place. Delayed responses. No focal deficits, tone is normal in all 4 extremities. EXTREMITIES: There is no peripheral edema, clubbing, or cyanosis. Peripheral pulses are intact. - Labs CBC & Chem 7: 10/27/23 07:15 10/27/23 07:15 Labs: Abnormal Lab Results - Last 24 Hours (Table) 10/26/23 10/27/23 10/27/23 Range/Units 08:49 07:15 07:15 Hgb 11.0 L (11.4-16.0) gm/dL MCHC 30.3 L (31.0-37.0) g/dL Lymphocytes # 0.5 L (1.0-4.8) k/uL Lymphocytes # (Manual) 0.38 L (1.0-4.8) k/uL Sodium 133 L (137-145) mmol/L Chloride 88 L (98-107) mmol/L Carbon Dioxide 36 H (22-30) mmol/L BUN 40 H (7-17) mg/dL Glucose 114 H (74-99) mg/dL Calcium 10.3 H (8.4-10.2) mg/dL Assessment and Plan Assessment: Acute on chronic hypoxemic respiratory failure, secondary to diastolic CHF exacerbation. Chest x-ray on arrival showed cardiomegaly with mild pulmonary vascular congestion. NT proBNP elevated at 2000.there may be a component of CHF. LV function is preserved. The patient is mild mitral stenosis currently on 2 L of O2 nasal cannula Abdominal pain/constipation/fecal stasis Possible underlying exacerbation of chronic bronchial asthma Chronic hypoxemic respiratory failure Elevated d-dimer Hyperlipidemia Hypertension Hypothyroidism Remote history of tobacco use Plan: continue diureticsCURRENTLY ON LASIX 20 MG BY MOUTH DAILY Patient has already been started on DuoNeb's, Symbicort inhaler. Not particularly symptomatic for asthma exacerbation on my evaluation. may benefit from laxatives A CT of the chest was done that showed no evidence of any pulmonary embolism. There was some mild emphysematous changes bilaterally and increased groundglass opacity centrally in the right upper lobe with some organizing consolidation anteriorly and centrally and posteriorly in the bilateral lower lungs with dependent atelectasis. The patient suspected to have CHF. Her proBNP level was elevated at time of admission and the level was 2120. Troponins were negative. The viral screen was also negative. The blood gas showed a pH of 7.4 with a pCO2 of 64 and pO2 of 74 consistent with chronic well compensated hypercapnic respiratory failure. The patient is known to have other comorbidities including chronic bronchial asthma, hypertension, hyperlipidemia, hypothyroidism, chronic anxiety, ulcerative colitis, diverticular disease along with chronic back pain and perip heral neuropathy. At this point in time, the patient is on oxygen at 2 L/m nasal cannula with a pulse ox of 92%. Echocardiogram was also done and it showed a normal LV function, severe mitral annular calcification with mild degree of mitral stenosis. Normal RV size. RV systolic pressure was 49.
[2023-10-27] MEDS: ATORVASTATIN 40 MG TAB PO SCH (20:37)
--- NOTE | 2023-10-27 21:54 | P.PN ---
Subjective Progress Note Date: 10/26/23 Patient is a 88-year-old female with a past medical history of hypertension, hyperlipidemia, history of COVID-19 infection, valvular heart disease and chronic hypoxic respiratory failure on home oxygen, COPD and current impairment presents to ER with complaints of worsening shortness of breath. Patient was also recently admitted to the hospital at [facility] per septic shock and pneumonia followed by external stay at [facility]. Patient presents to the hospital with worsening shortness of breath for the past 4 days. Patient is also having chest tightness/pain with coughing. 10/26/2023 Patient is currently lying in the bed. Awake alert and oriented. Still complains of shortness of breath. Was continued on IV Lasix 20 mg twice daily which has been changed to Lasix 20 mg daily starting from tomorrow. 2D echocardiogram showed technically difficult study. Normal LV systolic function. Severe mitral annular calcification with mild mitral stenosis, aortic sclerosis with mild to moderate aortic stenosis. Patient had CTA chest showed no CT evidence of acute PE. Bilateral central opacities suggestive of edema/developing acute infiltrates. Suspect fluid overload state. Asymmetric findings in the right upper lobe favor developing acute infiltrate. Laboratory data showed WBC 4.7 hemoglobin 10.7 platelets 161 Sodium 134 potassium 4.2 chloride 88 bicarb 36 BUN 36 and creatinine 0.78 and blood sugar is 125. Calcium 10.1 Urinalysis is negative for infection Current medications reviewed. Objective - Vital Signs Vital signs: Vital Signs Temp 98.5 F 10/26/23 10:47 Pulse 107 H 10/26/23 10:47 Resp 20 10/26/23 10:47 BP 149/67 10/26/23 10:47 Pulse Ox 92 L 10/26/23 10:47 FiO2 Intake & Output 10/25/23 10/26/23 10/26/23 18:59 06:59 18:59 Output Total 600 450 Balance -600 -450 Weight 68 kg 65 kg Output: Urine 600 450 Other: Voiding Method Diaper Diaper Bedpan External Catheter External Catheter - Exam PHYSICAL EXAMINATION: Patient is lying in the bed comfortably, no acute distress, awake alert and oriented.. HEENT: Normocephalic. Neck is supple. Pupils reactive. Nostrils clear. Oral cavity is moist. Neck reveals no JVD, carotid bruits, or thyromegaly. CHEST EXAMINATION: Trachea is central. Symmetrical expansion. Left basilar crackles. Nonlabored breathing.. CARDIAC: Normal S1, S2 with no gallops. No murmurs ABDOMEN: Soft. Bowel sounds present. Nontender. No organomegaly. No abdominal bruits. Extremities: reveal no edema. No clubbing or cyanosis Neurologically awake, alert, oriented x2-3 with well-coordinated movements. No gross focal deficits noted. Mild cognitive impairment. Skin: No rash or skin lesions. Psychiatric: Coperative. Nonsuicidal, Musculoskeletal: No joint swelling or deformity. Normal range of motion. - Labs CBC & Chem 7: 10/27/23 07:15 10/27/23 07:15 Labs: Abnormal Lab Results - Last 24 Hours (Table) 10/26/23 10/26/23 10/26/23 Range/Units 03:54 08:49 08:49 Hgb 10.7 L (11.4-16.0) gm/dL MCHC 30.3 L (31.0-37.0) g/dL Lymphocytes # (Manual) 0.38 L (1.0-4.8) k/uL ABG pCO2 64 H (35-45) mmHg ABG pO2 74 L (83-108) mmHg ABG HCO3 40 H* (21-25) mmol/L ABG Total CO2 42 H (19-24) mmol/L Sodium 134 L (137-145) mmol/L Chloride 88 L (98-107) mmol/L Carbon Dioxide 36 H (22-30) mmol/L BUN 36 H (7-17) mg/dL Glucose 125 H (74-99) mg/dL Assessment and Plan Assessment: Acute on chronic hypoxemic respiratory failure secondary to CHF exacerbation Acute on chronic CHF with diastolic dysfunction. Constipation and fecal stasis Chronic hypoxemic respiratory failure on oxygen at 2 L via nasal cannula Hypertension Hyperlipidemia Hypothyroidism History of smoking DVT prophylaxis with heparin subcu GI prophylaxis with Protonix Plan: Patient will be continued on telemonitoring. Was on IV Lasix 20 mg twice daily changed to Lasix 20 mg daily. Continue with DuoNebs and Symbicort. Encourage oral intake. Will be started on stool softeners and possible Dulcolax suppository and follow-up closely. Cardiology and pulmonary is on board. CTA chest showed no evidence of pulmonary embolism. Prognosis is guarded with multiple medical problems and comorbid conditions. Time with Patient: Greater than 30
--- NOTE | 2023-10-27 21:57 | P.PN ---
Subjective Progress Note Date: 10/27/23 Patient is a 88-year-old female with a past medical history of hypertension, hyperlipidemia, history of COVID-19 infection, valvular heart disease and chronic hypoxic respiratory failure on home oxygen, COPD and current impairment presents to ER with complaints of worsening shortness of breath. Patient was also recently admitted to the hospital at [facility] per septic shock and pneumonia followed by external stay at [facility]. Patient presents to the hospital with worsening shortness of breath for the past 4 days. Patient is also having chest tightness/pain with coughing. 10/26/2023 Patient is currently lying in the bed. Awake alert and oriented. Still complains of shortness of breath. Was continued on IV Lasix 20 mg twice daily which has been changed to Lasix 20 mg daily starting from tomorrow. 2D echocardiogram showed technically difficult study. Normal LV systolic function. Severe mitral annular calcification with mild mitral stenosis, aortic sclerosis with mild to moderate aortic stenosis. Patient had CTA chest showed no CT evidence of acute PE. Bilateral central opacities suggestive of edema/developing acute infiltrates. Suspect fluid overload state. Asymmetric findings in the right upper lobe favor developing acute infiltrate. Laboratory data showed WBC 4.7 hemoglobin 10.7 platelets 161 Sodium 134 potassium 4.2 chloride 88 bicarb 36 BUN 36 and creatinine 0.78 and blood sugar is 125. Calcium 10.1 Urinalysis is negative for infection 10/27/2023 Patient is currently lying in the bed. Awake alert and oriented. Patient states that she is not feeling very well. CT of the abdomen and pelvis was done showed there is moderate distal colonic fecal stasis or constipation. No bowel obstruction. Correlate clinically. Suspect gastritis involving the fundus and body of stomach. Correlate clinically. Denies any bowel movement yesterday and today. Patient is being continued on Lasix 20 mg daily. Laboratory showed WBC 6.8, hemoglobin 11.0 and platelets 206, sodium 133 and potassium 4.6 chloride 88 bicarb 36 BUN 14 creatinine 0.81 and calcium 10.3. Current medications reviewed. Objective - Vital Signs Vital signs: Vital Signs Temp 98 F 10/27/23 12:30 Pulse 80 10/27/23 16:00 Resp 18 10/27/23 16:00 BP 144/65 10/27/23 16:00 Pulse Ox 92 L 10/27/23 16:00 FiO2 Intake & Output 1210/27/23 10/28/23 06:59 18:59 06:59 Intake Total 60 Output Total 575 500 Balance -575 -440 Weight 65 kg Intake: Oral 60 Output: Urine 575 500 Other: Voiding Method Indwelling Catheter Indwelling Catheter # Bowel Movements 1 - Exam PHYSICAL EXAMINATION: Patient is lying in the bed comfortably, no acute distress, awake alert and oriented.. HEENT: Normocephalic. Neck is supple. Pupils reactive. Nostrils clear. Oral cavity is moist. Neck reveals no JVD, carotid bruits, or thyromegaly. CHEST EXAMINATION: Trachea is central. Symmetrical expansion. Left basilar crackles. Nonlabored breathing.. CARDIAC: Normal S1, S2 with no gallops. No murmurs ABDOMEN: Soft. Bowel sounds present. Nontender. No organomegaly. No abdominal bruits. Extremities: reveal no edema. No clubbing or cyanosis Neurologically awake, alert, oriented x2-3 with well-coordinated movements. No gross focal deficits noted. Mild cognitive impairment. Skin: No rash or skin lesions. Psychiatric: Coperative. Nonsuicidal, Musculoskeletal: No joint swelling or deformity. Normal range of motion. - Labs CBC & Chem 7: 10/27/23 07:15 10/27/23 07:15 Labs: Abnormal Lab Results - Last 24 Hours (Table) 10/27/23 10/27/23 Range/Units 07:15 07:15 Hgb 11.0 L (11.4-16.0) gm/dL MCHC 30.3 L (31.0-37.0) g/dL Lymphocytes # 0.5 L (1.0-4.8) k/uL Sodium 133 L (137-145) mmol/L Chloride 88 L (98-107) mmol/L Carbon Dioxide 36 H (22-30) mmol/L BUN 40 H (7-17) mg/dL Glucose 114 H (74-99) mg/dL Calcium 10.3 H (8.4-10.2) mg/dL Assessment and Plan Assessment: Acute on chronic hypoxemic respiratory failure secondary to CHF exacerbation Acute on chronic CHF with diastolic dysfunction. Constipation and fecal stasis Chronic hypoxemic respiratory failure on oxygen at 2 L via nasal cannula Hypertension Hyperlipidemia Hypothyroidism History of smoking DVT prophylaxis with heparin subcu GI prophylaxis with Protonix Plan: Patient will be continued on daily monitoring. Continue with Lasix 20 mg daily and increase oral intake. Patient will be started on Dulcolax suppository and senna at bedtime as needed for constipation. Continue the DuoNebs and Symbicort and oxygen supplementation currently 2 L via nasal cannula. Cardiology and pulmonary is on board. CTA chest showed no evidence of pulmonary embolism. Prognosis is guarded with multiple medical problems and comorbid conditions. Time with Patient: Greater than 30
[2023-10-27] MEDS: HEPARIN SODIUM,PORCINE 5,000 UNIT/ML 1 ML VIAL SQ SCH (23:38)
[2023-10-28] MEDS: PANTOPRAZOLE 40 MG TABLET PO SCH (06:42)
[2023-10-28] MEDS: traMADol 50 MG TAB PO SCH ×2 (08:04→19:36)
[2023-10-28] MEDS: ASPIRIN 81 MG PO SCH (08:04)
[2023-10-28] MEDS: FUROSEMIDE 20 MG TAB PO SCH (08:04)
[2023-10-28] MEDS: GABAPENTIN 300 MG CAP PO SCH ×3 (08:04→19:35)
[2023-10-28] MEDS: MULTIVITAMINS, THERA 1 EACH TAB PO SCH (08:05)
[2023-10-28] MEDS: HEPARIN SODIUM,PORCINE 5,000 UNIT/ML 1 ML VIAL SQ SCH ×3 (08:05→23:52)
[2023-10-28] MEDS: atenoloL 25 MG TAB PO SCH ×2 (08:05→23:52)
[2023-10-28] MEDS: amLODIPine 5 MG TAB PO SCH (08:05)
[2023-10-28] MEDS: ACETAMINOPHEN TAB 500 MG TAB PO SCH ×4 (08:05→19:35)
[2023-10-28] MEDS ORDERED: ZINC OXIDE PASTE (Z-GUARD) 1 APPLIC APPLIC TOPICAL PRN (08:23)
[2023-10-28 08:37] LABS: African American GFR (CKD) >90 (>60 ml/min/1.73 sqM); Anion Gap 7 mmol/L; Blood Urea Nitrogen 47 mg/dL (7-17); Calcium 10.1 mg/dL (8.4-10.2); Carbon Dioxide 39 mmol/L (22-30); Chloride 87 mmol/L (98-107); Glucose 164 mg/dL (74-99); Non-African American GFR(CKD) 79 (>60 ml/min/1.73 sqM); Potassium 4.6 mmol/L (3.5-5.1); Sodium 133 mmol/L (137-145)
[2023-10-28] MEDS: SYMBICORT 160-4.5 MCG INHALER INHALATION SCH ×2 (08:54→17:52)
[2023-10-28] MEDS: IPRATROPIUM-ALBUTEROL 3 ML NEB INHALATION SCH ×3 (08:54→17:53)
[2023-10-28] MEDS: bisacodyL 10 MG SUPP RECTAL SCH (09:21)
[2023-10-28] MEDS: ISOSORBIDE MONONITRATE ER 30 MG TAB.ER.24H PO SCH (12:04)
--- NOTE | 2023-10-28 13:28 | P.PN ---
Subjective Progress Note Date: 10/28/23 Patient is a 88-year-old white female past medical history significant for asthma, chronic oxygen dependence, hyperlipidemia, hypertension, hypothyroidism, among other things. Patient is a questionable historian, she has a delayed response, but is able to answer some of my questions. She lives at [facility] [place]. Apparently, patient presented yesterday with chief complaint of progressively worsening shortness of breath over the last 4-5 days. She does endorse a cough with yellow sputum production. Denies any fevers, chills, chest pain. Denies sick contacts. She denies COPD history, but has history of asthma. She does state that she wears 2 L of home oxygen. Denies any chest pain, heart palpitations, syncope, or lower extremity swelling. Chest x- ray on arrival showed cardiomegaly with mild pulmonary vascular congestion. NT proBNP was elevated at 2120. Follow-up echocardiogram showed a preserved left ventricular ejection fraction of 55-60%. Patient has been started on Lasix 20 mg twice a day. BMP shows sodium 134, potassium 4.6, chloride 95, serum bicarbonate 31, BUN 29, creatinine 0.72, glucose 130. Troponin is less than 0.012. D-dimer was elevated at 0.73. Negative for influenza, RSV, COVID-19. Patient is being monitored on the cardiac stepdown unit. on today's evaluation of 10/27/2023, the patient does not seem to be an aberrant respiratory distress. He is complaining some abdominal discomfort. She is a very poor historian. I think there is underlying confusion. She comes to us from an assisted livingBlood work is essentially unremarkable. Hemoglobin is at 6.8, the white cell count is 11.0 and a platelet count is at 206. Sodium level is at 133, bicarb is at 36, BUN is at 40 with a creatinine of 0.8. Calcium levels at 10.3. UA is negative. CAT scan of the abdomen was also done yesterday and it showed evidence of moderate distal colonic fecal stasis/constipation. There is no indication of any bowel obstruction. There may be some underlying gastritis. The patient is resting comfortably in bed. She is currently on 2 L of oxygen by nasal cannula. Echo of the heart was completed and the patient was found to have a normal ejection fraction of 55- 60%. Right ventricular systolic pressure was estimated to be at 49. She has moderate to severe mitral valve calcification with aortic valve calcification and she has also mild mitral stenosis. On 10/28/2023, the patient was able to have a bowel movement. No significant abdominal pain. No respiratory distress. Medication remains unchanged. She is hemodynamically stable. She is currently on 3 L of oxygen by nasal cannula with a pulse ox of 98%. She is afebrile. No other significant events overnight. Objective - Vital Signs Vital signs: Vital Signs Temp 98.5 F 10/28/23 08:00 Pulse 91 10/28/23 08:00 Resp 21 10/28/23 08:00 BP 131/53 10/28/23 08:00 Pulse Ox 93 L 10/28/23 08:55 FiO2 Intake & Output 10/27/23 10/28/23 10/28/23 18:59 06:59 18:59 Intake Total 60 Output Total 500 640 Balance -440 -640 Weight 67 kg Intake: Oral 60 Output: Urine 500 640 Other: Voiding Method Indwelling Catheter Indwelling Catheter Indwelling Catheter # Bowel Movements 1 1 - Exam GENERAL EXAM: Alert, 88-year-old white female , comfortable in no apparent distress. HEAD: Normocephalic and atraumatic EYES: Normal reaction of pupils, equal size. NOSE: Clear with pink turbinates. THROAT: No erythema or exudates. NECK: No masses, no JVD. CHEST: No chest wall deformity. LUNGS: Equal air entry with no crackles, wheeze, rhonchi or dullness. On 3 L/m nasal cannula. No conversational dyspnea or accessory muscle use.. CVS: S1 and S2 normal with no audible murmur, regular rhythm. No extra heart s ounds ABDOMEN: No hepatosplenomegaly, active bowel sounds, no guarding or rigidity. SPINE: No scoliosis or deformity SKIN: No rashes CENTRAL NERVOUS SYSTEM: Alert. Oriented to self and place. Delayed responses. No focal deficits, tone is normal in all 4 extremities. EXTREMITIES: There is no peripheral edema, clubbing, or cyanosis. Peripheral pulses are intact. - Labs CBC & Chem 7: 10/27/23 07:15 10/28/23 07:56 Labs: Abnormal Lab Results - Last 24 Hours (Table) 10/28/23 Range/Units 07:56 Sodium 133 L (137-145) mmol/L Chloride 87 L (98-107) mmol/L Carbon Dioxide 39 H (22-30) mmol/L BUN 47 H (7-17) mg/dL Glucose 164 H (74-99) mg/dL Assessment and Plan Assessment: Acute on chronic hypoxemic respiratory failure, secondary to diastolic CHF ex acerbation. Chest x-ray on arrival showed cardiomegaly with mild pulmonary vascular congestion. NT proBNP elevated at 2000.there may be a component of CHF. LV function is preserved. The patient is mild mitral stenosis currently on 3 L of O2 nasal cannula Abdominal pain/constipation/fecal stasis, the patient had a bowel movement Possible underlying exacerbation of chronic bronchial asthma Chronic hypoxemic respiratory failure Elevated d-dimer Hyperlipidemia Hypertension Hypothyroidism Remote history of tobacco use Plan: Patient is having bowel movements continue Lasix 20 mg by mouth daily Patient has already been started on DuoNeb's, Symbicort inhaler. Not particularly symptomatic for asthma exacerbation on my evaluation. may benefit from laxatives A CT of the chest was done that showed no evidence of any pulmonary embolism. There was some mild emphysematous changes bilaterally and increased groundglass opacity centrally in the right upper lobe with some organizing consolidation anteriorly and centrally and posteriorly in the bilateral lower lungs with dependent atelectasis. The patient suspected to have CHF. Her proBNP level was elevated at time of admission and the level was 2120. Troponins were negative. The viral screen was also negative. The blood gas showed a pH of 7.4 with a pCO2 of 64 and pO2 of 74 consistent with chronic well compensated hypercapnic respiratory failure. The patient is known to have other comorbidities including chronic bronchial asthma, hypertension, hyperlipidemia, hypothyroidism, chronic anxiety, ulcerative colitis, diverticular disease along with chronic back pain and peripheral neuropathy. Echocardiogram showing normal LV function with mild mitral stenosis Wean down FiO2 currently on 3 L We'll continue to follow
[2023-10-28] MEDS: HYDROcodone/APAP 5-325MG 1 EACH TAB PO PRN (13:54)
--- NOTE | 2023-10-28 14:44 | XR ---
EXAMINATION TYPE: XR chest 1V portable DATE OF EXAM: 10/28/2023 COMPARISON: 06/25/2014 HISTORY: CHF, increasing lethargy. TECHNIQUE: Single frontal view of the chest is obtained. FINDINGS: The heart is not enlarged and pulmonary vasculature is not grossly congested. Hazy density in the rig ht lung base which is not seen on the prior study possibly represents a pneumonic infiltrate. Clinica l correlation follow-up to resolution is recommended. There is no pleural effusion or pneumothorax. The osseous structures are intact. IMPRESSION: Acute cardiopulmonary disease with a density developing in the right lower lobe. The fin dings are most consistent with pneumonia. Clinical correlation short-term follow-up to resolution is recommended.
[2023-10-28 14:56] LABS: ABG Base Excess 15.5 mmol/L; ABG PH 7.25 (7.35-7.45); ABG PO2 88 mmHg (83-108); ABG TCO2 46 mmol/L (19-24); Allen Test Performed? Yes
[2023-10-28 14:57] LABS: ABG PCO2 97 mmHg (35-45)
[2023-10-28 14:58] LABS: ABG HCO3 43 mmol/L (21-25)
[2023-10-28] MEDS ORDERED: LEVOFLOXACIN 750MG-D5W PMX 750 MG in DEXTROSE/WATER 1 150ML.BAG IVPB SCH (15:45)
[2023-10-28 16:07] LABS: Glucose,Whole Blood 156 mg/dL (70-110)
[2023-10-28] MEDS: SODIUM CHLORIDE 0.9% 1,000 ML IV SCH (16:36)
[2023-10-28] MEDS: ATORVASTATIN 40 MG TAB PO SCH (19:35)
--- NOTE | 2023-10-28 22:35 | P.PN ---
Subjective Progress Note Date: 10/28/23 Patient is a 88-year-old female with a past medical history of hypertension, hyperlipidemia, history of COVID-19 infection, valvular heart disease and chronic hypoxic respiratory failure on home oxygen, COPD and current impairment presents to ER with complaints of worsening shortness of breath. Patient was also recently admitted to the hospital at [facility] per septic shock and pneumonia followed by external stay at assisted. Patient presents to the hospital with worsening shortness of breath for the past 4 days. Patient is also having chest tightness/pain with coughing. 10/26/2023 Patient is currently lying in the bed. Awake alert and oriented. Still complains of shortness of breath. Was continued on IV Lasix 20 mg twice daily which has been changed to Lasix 20 mg daily starting from tomorrow. 2D echocardiogram showed technically difficult study. Normal LV systolic function. Severe mitral annular calcification with mild mitral stenosis, aortic sclerosis with mild to moderate aortic stenosis. Patient had CTA chest showed no CT evidence of acute PE. Bilateral central opacities suggestive of edema/developing acute infiltrates. Suspect fluid overload state. Asymmetric findings in the right upper lobe favor developing acute infiltrate. Laboratory data showed WBC 4.7 hemoglobin 10.7 platelets 161 Sodium 134 potassium 4.2 chloride 88 bicarb 36 BUN 36 and creatinine 0.78 and blood sugar is 125. Calcium 10.1 Urinalysis is negative for infection 10/27/2023 Patient is currently lying in the bed. Awake alert and oriented. Patient states that she is not feeling very well. CT of the abdomen and pelvis was done showed there is moderate distal colonic fecal stasis or constipation. No bowel obstruction. Correlate clinically. Suspect gastritis involving the fundus and body of stomach. Correlate clinically. Denies any bowel movement yesterday and today. Patient is being continued on Lasix 20 mg daily. Laboratory showed WBC 6.8, hemoglobin 11.0 and platelets 206, sodium 133 and potassium 4.6 chloride 88 bicarb 36 BUN 14 creatinine 0.81 and calcium 10.3. 10/28/2023 Patient is resting in the bed. Seems to be lethargic today. Able to open her eyes and follow simple commands. Currently requiring 3 L oxygen and is saturating at 96%. Afebrile. Remains on Lasix 20 mg daily. Patient has been afebrile. Patient did have a bowel movement. No nausea or vomiting. Patient does have minimal oral intake. Laboratory data showed sodium 133 potassium 4.6 chloride 87 bicarb is 39 BUN 47 creatinine 0.67 and blood sugar is 164. Calcium 10.1. Urinalysis is negative for infection 10/26/2023. Repeat chest x-ray done this afternoon showed acute cardiopulmonary disease with a density developing in the right lower lobe. The findings are most consistent with pneumonia. Clinical correlation and short-term follow-up to resolution is recommended. Patient is also IV hydration with normal saline at 50 cc/h. Current medications reviewed. Objective - Vital Signs Vital signs: Vital Signs Temp 98.5 F 10/28/23 08:00 Pulse 68 10/28/23 15:28 Resp 17 10/28/23 15:28 BP 115/59 10/28/23 15:28 Pulse Ox 96 10/28/23 15:28 FiO2 40 10/28/23 15:35 Intake & Output 10/27/23 10/28/23 10/28/23 18:59 06:59 18:59 Intake Total 60 Output Total 500 640 400 Balance -440 -640 -400 Weight 67 kg Intake: Oral 60 Output: Urine 500 640 400 Other: Voiding Method Indwelling Catheter Indwelling Catheter Indwelling Catheter # Bowel Movements 1 1 - Exam PHYSICAL EXAMINATION: Patient is lying in the bed comfortably, no acute distress, awake alert and oriented.. HEENT: Normocephalic. Neck is supple. Pupils reactive. Nostrils clear. Oral cavity is moist. Neck reveals no JVD, carotid bruits, or thyromegaly. CHEST EXAMINATION: Trachea is central. Symmetrical expansion. Left basilar crac kles. Nonlabored breathing.. CARDIAC: Normal S1, S2 with no gallops. No murmurs ABDOMEN: Soft. Bowel sounds present. Nontender. No organomegaly. No abdominal bruits. Extremities: reveal no edema. No clubbing or cyanosis Neurologically awake, alert, oriented x2-3 with well-coordinated movements. No gross focal deficits noted. Mild cognitive impairment. Skin: No rash or skin lesions. Psychiatric: Coperative. Nonsuicidal, Musculoskeletal: No joint swelling or deformity. Normal range of motion. - Labs CBC & Chem 7: 10/27/23 07:15 10/28/23 07:56 Labs: Abnormal Lab Results - Last 24 Hours (Table) 10/28/23 10/28/23 Range/Units 07:56 14:49 ABG pH 7.25 L (7.35-7.45) ABG pCO2 97 H* (35-45) mmHg ABG HCO3 43 H* (21-25) mmol/L ABG Total CO2 46 H (19-24) mmol/L Sodium 133 L (137-145) mmol/L Chloride 87 L (98-107) mmol/L Carbon Dioxide 39 H (22-30) mmol/L BUN 47 H (7-17) mg/dL Glucose 164 H (74-99) mg/dL Assessment and Plan Assessment: Acute on chronic hypoxemic respiratory failure secondary to CHF exacerbation, on 3l via NC now Acute on chronic CHF with diastolic dysfunction. Right lower lobe pneumonia evidence of density developing in the right lower lobe as per chest x-ray on 10/28/2023. Metabolic encephalopathy Constipation and fecal stasis. improved, Chronic hypoxemic respiratory failure on oxygen at 2 L via nasal cannula Hypertension Hyperlipidemia Hypothyroidism History of smoking DVT prophylaxis with heparin subcu GI prophylaxis with Protonix Plan: Patient will be continued on telemonitoring. Continue with Lasix 20 mg daily. Chest x-ray obtained due to patient being lethargic compared to yesterday which showed developing right lower lobe pneumonia. Patient was started on antibiotics Levaquin. Allergic to penicillin and cephalexin. Patient will be placed on BiPAP due to hypercapnia. Patient will be continued. Meds as needed. Did have a bowel movement today. Pulmonary is on board. Procalcitonin level was ordered. Prognosis is guarded with multiple medical problems and comorbid conditions. Follow-up CBC and BMP tomorrow.. Time with Patient: Greater than 30
[2023-10-29] MEDS: SENNOSIDES 8.6 MG TAB PO PRN (02:07)
[2023-10-29] MEDS: SODIUM CHLORIDE 0.9% 1,000 ML IV SCH (05:26)
[2023-10-29] MEDS: PANTOPRAZOLE 40 MG TABLET PO SCH (05:27)
[2023-10-29] MEDS: ACETAMINOPHEN TAB 500 MG TAB PO SCH ×4 (07:45→20:15)
[2023-10-29] MEDS: atenoloL 25 MG TAB PO SCH ×2 (07:45→20:14)
[2023-10-29] MEDS: traMADol 50 MG TAB PO SCH ×2 (07:45→20:12)
[2023-10-29] MEDS: ASPIRIN 81 MG PO SCH (07:46)
[2023-10-29] MEDS: FUROSEMIDE 20 MG TAB PO SCH (07:46)
[2023-10-29] MEDS: MULTIVITAMINS, THERA 1 EACH TAB PO SCH (07:46)
[2023-10-29] MEDS: amLODIPine 5 MG TAB PO SCH (07:46)
[2023-10-29] MEDS: GABAPENTIN 300 MG CAP PO SCH ×3 (07:46→20:15)
[2023-10-29] MEDS: bisacodyL 10 MG SUPP RECTAL SCH (07:47)
[2023-10-29] MEDS: HEPARIN SODIUM,PORCINE 5,000 UNIT/ML 1 ML VIAL SQ SCH ×2 (07:47→15:14)
[2023-10-29 08:40] LABS: Basophils % (A) 1 %; Eosinophils # (A) 0.2 k/uL (0-0.7); Eosinophils % (A) 3 %; HCT 32.9 % (34.0-46.0); HGB 10.1 gm/dL (11.4-16.0); Hypochromasia Marked; Lymphocytes # (A) 0.4 k/uL (1.0-4.8); Lymphocytes % (A) 6 %; MCH 26.9 pg (25.0-35.0); MCHC 30.6 g/dL (31.0-37.0); Mean Platelet Volume 7.4; Monocytes # (A) 0.4 k/uL (0-1.0); Monocytes % (A) 7 %; Neutrophils # (A) 5.3 k/uL (1.3-7.7); Neutrophils % (A) 81 %; Platelet Count 218 k/uL (150-450); RBC 3.74 m/uL (3.80-5.40); RDW 15.5 % (11.5-15.5); WBC 6.5 k/uL (3.8-10.6)
[2023-10-29 08:57] LABS: African American GFR (CKD) 85 (>60 ml/min/1.73 sqM); Anion Gap 7 mmol/L; Blood Urea Nitrogen 54 mg/dL (7-17); Calcium 10.5 mg/dL (8.4-10.2); Chloride 86 mmol/L (98-107); Glucose 97 mg/dL (74-99); Non-African American GFR(CKD) 74 (>60 ml/min/1.73 sqM); Potassium 4.9 mmol/L (3.5-5.1); Sodium 133 mmol/L (137-145)
[2023-10-29 09:04] LABS: Carbon Dioxide 40 mmol/L (22-30)
[2023-10-29] MEDS: IPRATROPIUM-ALBUTEROL 3 ML NEB INHALATION SCH ×3 (09:20→20:51)
[2023-10-29] MEDS: SYMBICORT 160-4.5 MCG INHALER INHALATION SCH ×2 (09:20→20:51)
[2023-10-29] MEDS ORDERED: VANCOMYCIN IV PER PHARMACY 1 EACH MISC MISCELLANE PRN (10:15)
[2023-10-29 10:33] LABS: ABG Oxygen Saturation 97.3 % (94-97); ABG PH 7.32 (7.35-7.45); ABG PO2 90 mmHg (83-108); ABG TCO2 46 mmol/L (19-24); Allen Test Performed? Yes
[2023-10-29 10:37] LABS: ABG HCO3 43 mmol/L (21-25); ABG PCO2 84 mmHg (35-45)
[2023-10-29 10:37] LABS: Appearance,Urine Clear (Clear); Bilirubin,Urine Negative (Negative); Blood,Urine Trace (Negative); Color,Urine Yellow; Glucose,Urine (UA) Negative (Negative); Ketones,Urine Negative (Negative); Protein,Urine Negative (Negative)
[2023-10-29 10:38] LABS: Leukocyte Esterase,Urine Trace (Negative); Nitrite,Urine Negative (Negative); Urobilinogen,Urine <2.0 mg/dL (<2.0)
[2023-10-29 10:40] LABS: RBC,Urine 1 /hpf (0-5); WBC,Urine 2 /hpf (0-5)
[2023-10-29] MEDS ORDERED: VANCOMYCIN 1,250 MG in SODIUM CHLORIDE 0.9% 250 ML IVPB ONE (10:45)
--- NOTE | 2023-10-29 11:52 | P.PN ---
Subjective Progress Note Date: 10/29/23 Patient is a 88-year-old white female past medical history significant for asthma, chronic oxygen dependence, hyperlipidemia, hypertension, hypothyroidism, among other things. Patient is a questionable historian, she has a delayed response, but is able to answer some of my questions. She lives at [facility]. Apparently, patient presented yesterday with chief complaint of progressively worsening shortness of breath over the last 4-5 days. She does endorse a cough with yellow sputum production. Denies any fevers, chills, chest pain. Denies sick contacts. She denies COPD history, but has history of asthma. She does state that she wears 2 L of home oxygen. Denies any chest pain, heart palpitations, syncope, or lower extremity swelling. Chest x- ray on arrival showed cardiomegaly with mild pulmonary vascular congestion. NT proBNP was elevated at 2120. Follow-up echocardiogram showed a preserved left ventricular ejection fraction of 55-60%. Patient has been started on Lasix 20 mg twice a day. BMP shows sodium 134, potassium 4.6, chloride 95, serum bicarbonate 31, BUN 29, creatinine 0.72, glucose 130. Troponin is less than 0.012. D-dimer was elevated at 0.73. Negative for influenza, RSV, COVID-19. Patient is being monitored on the cardiac stepdown unit. on today's evaluation of 10/27/2023, the patient does not seem to be an aberrant respiratory distress. He is complaining some abdominal discomfort. She is a very poor historian. I think there is underlying confusion. She comes to us from an assisted livingBlood work is essentially unremarkable. Hemoglobin is at 6.8, the white cell count is 11.0 and a platelet count is at 206. Sodium level is at 133, bicarb is at 36, BUN is at 40 with a creatinine of 0.8. Calcium levels at 10.3. UA is negative. CAT scan of the abdomen was also done yesterday and it showed evidence of moderate distal colonic fecal stasis/constipation. There is no indication of any bowel obstruction. There may be some underlying gastritis. The patient is resting comfortably in bed. She is currently on 2 L of oxygen by nasal cannula. Echo of the heart was completed and the patient was found to have a normal ejection fraction of 55- 60%. Right ventricular systolic pressure was estimated to be at 49. She has moderate to severe mitral valve calcification with aortic valve calcification and she has also mild mitral stenosis. On 10/28/2023, the patient was able to have a bowel movement. No significant abdominal pain. No respiratory distress. Medication remains unchanged. She is hemodynamically stable. She is currently on 3 L of oxygen by nasal cannula with a pulse ox of 98%. She is afebrile. No other significant events overnight. On 10/29/2023, the patient is in hypercapnic respiratory failure, maintained on BiPAP at a pressure of 10/5 and she is generating adequate tidal volume. No significant tachypnea. A repeat blood gas was done that showed a pH of 7.32 with a pCO2 of 84 and pO2 of 90. This was on a BiPAP with an FiO2 of 40%. Yesterday's blood gas showed a pH of 7.25 and a pCO2 of 97 and pO2 was 88. Improved compared to yesterday. More alert and awake and communicating. She al so had a bowel movement. The chest x-ray from yesterday showed a density in the right lower lobe consistent with possibility of pneumonia. Echocardiogram shows a preserved LV function. Labs from today shows an elderly scan of 6.5, hemoglobin 10.1, sodium is at 133, potassium is 4.9, bicarb is at 40, BUN is a 54 with a creatinine of 0.7. Calcium levels at 10.5. A UA was ordered. Objective - Vital Signs Vital signs: Vital Signs Temp 97.9 F 10/29/23 07:43 Pulse 81 10/29/23 11:28 Resp 14 10/29/23 11:28 BP 131/73 10/29/23 11:28 Pulse Ox 99 10/29/23 11:28 FiO2 40 10/29/23 11:42 Intake & Output 10/28/23 10/29/23 10/29/23 18:59 06:59 18:59 Intake Total 50 Output Total 400 480 Balance -400 -430 Weight 62 kg Intake: Oral 50 Output: Urine 400 480 Other: Voiding Method Indwelling Catheter Indwelling Catheter Indwelling Catheter - Exam GENERAL EXAM: Alert, 88-year-old white female , comfortable in no apparent di stress. The patient is tolerating BiPAP and she seems to be calm and comfortable at this point in time. Arousable. Communicating and following commands. HEAD: Normocephalic and atraumatic EYES: Normal reaction of pupils, equal size. NOSE: Clear with pink turbinates. THROAT: No erythema or exudates. NECK: No masses, no JVD. CHEST: No chest wall deformity. LUNGS: Equal air entry with no crackles, wheeze, rhonchi or dullness. No conversational dyspnea or accessory muscle use.. CVS: S1 and S2 normal with no audible murmur, regular rhythm. No extra heart sounds ABDOMEN: No hepatosplenomegaly, active bowel sounds, no guarding or rigidity. SPINE: No scoliosis or deformity SKIN: No rashes CENTRAL NERVOUS SYSTEM: Alert. Oriented to self and place. Delayed responses. No focal deficits, tone is normal in all 4 extremities. EXTREMITIES: There is no peripheral edema, clubbing, or cyanosis. Peripheral pulses are intact. - Labs CBC & Chem 7: 10/29/23 08:01 10/29/23 08:01 Labs: Abnormal Lab Results - Last 24 Hours (Table) 10/28/23 10/28/23 10/28/23 Range/Units 07:56 14:49 15:56 RBC (3.80-5.40) m/uL Hgb (11.4-16.0) gm/dL Hct (34.0-46.0) % MCHC (31.0-37.0) g/dL Lymphocytes # (1.0-4.8) k/uL ABG pH 7.25 L (7.35-7.45) ABG pCO2 97 H* (35-45) mmHg ABG HCO3 43 H* (21-25) mmol/L ABG Total CO2 46 H (19-24) mmol/L ABG O2 Saturation (94-97) % Sodium (137-145) mmol/L Chloride (98-107) mmol/L Carbon Dioxide (22-30) mmol/L BUN (7-17) mg/dL POC Glucose (mg/dL) 156 H (70-110) mg/dL Calcium (8.4-10.2) mg/dL Procalcitonin 0.16 H (0.02-0.09) ng/mL Urine Blood (Negative) Ur Leukocyte Esterase (Negative) 10/29/23 10/29/23 10/29/23 Range/Units 08:01 08:01 10:00 RBC 3.74 L (3.80-5.40) m/uL Hgb 10.1 L (11.4-16.0) gm/dL Hct 32.9 L (34.0-46.0) % MCHC 30.6 L (31.0-37.0) g/dL Lymphocytes # 0.4 L (1.0-4.8) k/uL ABG pH (7.35-7.45) ABG pCO2 (35-45) mmHg ABG HCO3 (21-25) mmol/L ABG Total CO2 (19-24) mmol/L ABG O2 Saturation (94-97) % Sodium 133 L (137-145) mmol/L Chloride 86 L (98-107) mmol/L Carbon Dioxide 40 H (22-30) mmol/L BUN 54 H (7-17) mg/dL POC Glucose (mg/dL) (70-110) mg/dL Calcium 10.5 H (8.4-10.2) mg/dL Procalcitonin (0.02-0.09) ng/mL Urine Blood Trace H (Negative) Ur Leukocyte Esterase Trace H (Negative) 10/29/23 Range/Units 10:30 RBC (3.80-5.40) m/uL Hgb (11.4-16.0) gm/dL Hct (34.0-46.0) % MCHC (31.0-37.0) g/dL Lymphocytes # (1.0-4.8) k/uL ABG pH 7.32 L (7.35-7.45) ABG pCO2 84 H* (35-45) mmHg ABG HCO3 43 H* (21-25) mmol/L ABG Total CO2 46 H (19-24) mmol/L ABG O2 Saturation 97.3 H (94-97) % Sodium (137-145) mmol/L Chloride (98-107) mmol/L Carbon Dioxide (22-30) mmol/L BUN (7-17) mg/dL POC Glucose (mg/dL) (70-110) mg/dL Calcium (8.4-10.2) mg/dL Procalcitonin (0.02-0.09) ng/mL Urine Blood (Negative) Ur Leukocyte Esterase (Negative) Assessment and Plan Assessment: Acute on chronic hypercapnic respiratory failure with signs of CO2 narcosis, improving and the patient is currently on BiPAP for now Developing right lower lobe pulmonary infiltrate, rule out possibility of a pneumonia. No overt signs of CHF. CHF with preserved LV function, mild mitral valve stenosis \ Abdominal pain/constipation/fecal stasis, the patient had a bowel movement Possible underlying exacerbation of chronic bronchial asthma Chronic hypoxemic respiratory failure Elevated d-dimer Hyperlipidemia Hypertension Hypothyroidism Remote history of tobacco use Plan: Continue BiPAP therapy Currently on Levaquin and vancomycin Repeat chest x-ray Fluid a blood gas in a.m. Continue DuoNeb's, Symbicort inhaler. Not particularly symptomatic for asthma exacerbation on my evaluation. may benefit from laxatives Patient has chronic hypercapnic respiratory failure likely secondary to COPD. Her pCO2 is in the mid 60s at baseline Echocardiogram showing normal LV function with mild mitral stenosis Would prefer to keep her on a BiPAP throughout the day today. Repeat chest x-ra y. BiPAP probably within next 24 hours. We'll continue to follow
[2023-10-29] MEDS: ISOSORBIDE MONONITRATE ER 30 MG TAB.ER.24H PO SCH (12:16)
[2023-10-29] MEDS: HYDROcodone/APAP 5-325MG 1 EACH TAB PO PRN (15:14)
[2023-10-29] MEDS: ATORVASTATIN 40 MG TAB PO SCH (20:12)
--- NOTE | 2023-10-29 21:28 | P.PN ---
Subjective Progress Note Date: 10/29/23 Patient is a 88-year-old female with a past medical history of hypertension, hyperlipidemia, history of COVID-19 infection, valvular heart disease and chronic hypoxic respiratory failure on home oxygen, COPD and current impairment presents to ER with complaints of worsening shortness of breath. Patient was also recently admitted to the hospital at [facility] per septic shock and pneumonia followed by external stay at group home. Patient presents to the hospital with worsening shortness of breath for the past 4 days. Patient is also having chest tightness/pain with coughing. 10/26/2023 Patient is currently lying in the bed. Awake alert and oriented. Still complains of shortness of breath. Was continued on IV Lasix 20 mg twice daily which has been changed to Lasix 20 mg daily starting from tomorrow. 2D echocardiogram showed technically difficult study. Normal LV systolic function. Severe mitral annular calcification with mild mitral stenosis, aortic sclerosis with mild to moderate aortic stenosis. Patient had CTA chest showed no CT evidence of acute PE. Bilateral central opacities suggestive of edema/developing acute infiltrates. Suspect fluid overload state. Asymmetric findings in the right upper lobe favor developing acute infiltrate. Laboratory data showed WBC 4.7 hemoglobin 10.7 platelets 161 Sodium 134 potassium 4.2 chloride 88 bicarb 36 BUN 36 and creatinine 0.78 and blood sugar is 125. Calcium 10.1 Urinalysis is negative for infection 10/27/2023 Patient is currently lying in the bed. Awake alert and oriented. Patient states that she is not feeling very well. CT of the abdomen and pelvis was done showed there is moderate distal colonic fecal stasis or constipation. No bowel obstruction. Correlate clinically. Suspect gastritis involving the fundus and body of stomach. Correlate clinically. Denies any bowel movement yesterday and today. Patient is being continued on Lasix 20 mg daily. Laboratory showed WBC 6.8, hemoglobin 11.0 and platelets 206, sodium 133 and potassium 4.6 chloride 88 bicarb 36 BUN 14 creatinine 0.81 and calcium 10.3. 10/28/2023 Patient is resting in the bed. Seems to be lethargic today. Able to open her eyes and follow simple commands. Currently requiring 3 L oxygen and is saturating at 96%. Afebrile. Remains on Lasix 20 mg daily. Patient has been afebrile. Patient did have a bowel movement. No nausea or vomiting. Patient does have minimal oral intake. Laboratory data showed sodium 133 potassium 4.6 chloride 87 bicarb is 39 BUN 47 creatinine 0.67 and blood sugar is 164. Calcium 10.1. Urinalysis is negative for infection 10/26/2023. Repeat chest x-ray done this afternoon showed acute cardiopulmonary disease with a density developing in the right lower lobe. The findings are most consistent with pneumonia. Clinical correlation and short-term follow-up to resolution is recommended. Patient is also IV hydration with normal saline at 50 cc/h. 10/29/2023 Patient is more awake today. Remains on BiPAP due to hypercapnic respiratory failure.. No complaints of chest pain. Afebrile. No nausea vomiting abdominal pain or diarrhea. Patient was started on antibiotics Levaquin due to right lower lobe pneumonia. Vancomycin was added today. Procalcitonin level 0.16. Repeat ABG showed pH 7.32 pCO2 84 and bicarb 43 pO2 90. Other laboratory data showed WBC 6.5 hemoglobin 10.1 and platelets 215 Sodium 133 potassium 4.9 chloride 86 bicarb is 40 BUN 54 and creatinine 0.74 and calcium 10.5 patient is IV hydration with normal saline at 75 cc/h. Current medications reviewed. Objective - Vital Signs Vital signs: Vital Signs Temp 97.9 F 10/29/23 07:43 Pulse 81 10/29/23 11:28 Resp 14 10/29/23 11:28 BP 131/73 10/29/23 11:28 Pulse Ox 99 10/29/23 11:28 FiO2 40 10/29/23 11:42 Intake & Output 10/28/23 10/29/23 10/29/23 18:59 06:59 18:59 Intake Total 50 Output Total 400 480 400 Balance -400 -430 -400 Weight 62 kg Intake: Oral 50 Output: Urine 400 480 400 Other: Voiding Method Indwelling Catheter Indwelling Catheter Indwelling Catheter - Exam PHYSICAL EXAMINATION: Patient is lying in the bed comfortably, no acute distress, awake alert and oriented.. HEENT: Normocephalic. Neck is supple. Pupils reactive. Nostrils clear. Oral cavity is moist. Neck reveals no JVD, carotid bruits, or thyromegaly. CHEST EXAMINATION: Trachea is central. Symmetrical expansion. Left basilar crackles. Nonlabored breathing.. CARDIAC: Normal S1, S2 with no gallops. No murmurs ABDOMEN: Soft. Bowel sounds present. Nontender. No organomegaly. No abdominal bruits. Extremities: reveal no edema. No clubbing or cyanosis Neurologically awake, alert, oriented x2-3 with well-coordinated movements. No gross focal deficits noted. Mild cognitive impairment. Skin: No rash or skin lesions. Psychiatric: Coperative. Nonsuicidal, Musculoskeletal: No joint swelling or deformity. Normal range of motion. - Labs CBC & Chem 7: 10/29/23 08:01 10/29/23 08:01 Labs: Abnormal Lab Results - Last 24 Hours (Table) 10/28/23 10/28/23 10/28/23 Range/Units 07:56 14:49 15:56 RBC (3.80-5.40) m/uL Hgb (11.4-16.0) gm/dL Hct (34.0-46.0) % MCHC (31.0-37.0) g/dL Lymphocytes # (1.0-4.8) k/uL ABG pH 7.25 L (7.35-7.45) ABG pCO2 97 H* (35-45) mmHg ABG HCO3 43 H* (21-25) mmol/L ABG Total CO2 46 H (19-24) mmol/L ABG O2 Saturation (94-97) % Sodium (137-145) mmol/L Chloride (98-107) mmol/L Carbon Dioxide (22-30) mmol/L BUN (7-17) mg/dL POC Glucose (mg/dL) 156 H (70-110) mg/dL Calcium (8.4-10.2) mg/dL Procalcitonin 0.16 H (0.02-0.09) ng/mL Urine Blood (Negative) Ur Leukocyte Esterase (Negative) 10/29/23 10/29/23 10/29/23 Range/Units 08:01 08:01 10:00 RBC 3.74 L (3.80-5.40) m/uL Hgb 10.1 L (11.4-16.0) gm/dL Hct 32.9 L (34.0-46.0) % MCHC 30.6 L (31.0-37.0) g/dL Lymphocytes # 0.4 L (1.0-4.8) k/uL ABG pH (7.35-7.45) ABG pCO2 (35-45) mmHg ABG HCO3 (21-25) mmol/L ABG Total CO2 (19-24) mmol/L ABG O2 Saturation (94-97) % Sodium 133 L (137-145) mmol/L Chloride 86 L (98-107) mmol/L Carbon Dioxide 40 H (22-30) mmol/L BUN 54 H (7-17) mg/dL POC Glucose (mg/dL) (70-110) mg/dL Calcium 10.5 H (8.4-10.2) mg/dL Procalcitonin (0.02-0.09) ng/mL Urine Blood Trace H (Negative) Ur Leukocyte Esterase Trace H (Negative) 10/29/23 Range/Units 10:30 RBC (3.80-5.40) m/uL Hgb (11.4-16.0) gm/dL Hct (34.0-46.0) % MCHC (31.0-37.0) g/dL Lymphocytes # (1.0-4.8) k/uL ABG pH 7.32 L (7.35-7.45) ABG pCO2 84 H* (35-45) mmHg ABG HCO3 43 H* (21-25) mmol/L ABG Total CO2 46 H (19-24) mmol/L ABG O2 Saturation 97.3 H (94-97) % Sodium (137-145) mmol/L Chloride (98-107) mmol/L Carbon Dioxide (22-30) mmol/L BUN (7-17) mg/dL POC Glucose (mg/dL) (70-110) mg/dL Calcium (8.4-10.2) mg/dL Procalcitonin (0.02-0.09) ng/mL Urine Blood (Negative) Ur Leukocyte Esterase (Negative) Assessment and Plan Assessment: Acute on chronic hypoxemic and hypercapnic respiratory failure secondary to Pneumonia and mild CHF exacerbation, on Bi PAP now Right lower lobe pneumonia evidence of density developing in the right lower lobe as per chest x-ray on 10/28/2023. Acute on chronic CHF with diastolic dysfunction. was on IV lasix Metabolic encephalopathy Likely component of CO2 narcosis. Constipation and fecal stasis. improved, Chronic hypoxemic respiratory failure on oxygen at 2 L via nasal cannula Hypertension Hyperlipidemia Hypothyroidism History of smoking DVT prophylaxis with heparin subcu GI prophylaxis with Protonix Plan: Patient will be continued on telemonitoring. Patient is on IV hydration with normal saline at 75 cc per hour. Chest x-ray obtained due to patient being lethargic compared to yesterday which showed developing right lower lobe pneumonia. Patient was started on antibiotics Levaquin 10/28 . Vancomycin was added on 10/29. Allergic to penicillin and cephalexin. Patient is on BiPAP due to hypercapnia. Patient Did have a bowel movement. Pulmonary is on board. Procalcitonin level was 0.19. Prognosis is guarded with multiple medical problems and comorbid conditions. Follow-up CBC and BMP tomorrow.. Time with Patient: Greater than 30
[2023-10-30] MEDS: HEPARIN SODIUM,PORCINE 5,000 UNIT/ML 1 ML VIAL SQ SCH ×3 (01:15→15:38)
[2023-10-30] MEDS: SODIUM CHLORIDE 0.9% 1,000 ML IV SCH ×2 (01:22→11:12)
[2023-10-30] MEDS: SENNOSIDES 8.6 MG TAB PO PRN ×2 (02:26→20:50)
[2023-10-30] MEDS: VANCOMYCIN 1,250 MG in SODIUM CHLORIDE 0.9% 250 ML IVPB SCH ×2 (03:39→19:41)
[2023-10-30 06:34] LABS: Basophils % (A) 0 %; Eosinophils # (A) 0.3 k/uL (0-0.7); Eosinophils % (A) 5 %; HCT 30.4 % (34.0-46.0); HGB 9.4 gm/dL (11.4-16.0); Hypochromasia Marked; Lymphocytes # (A) 0.4 k/uL (1.0-4.8); Lymphocytes % (A) 7 %; MCHC 30.9 g/dL (31.0-37.0); MCV 87.3 fL (80.0-100.0); Mean Platelet Volume 7.6; Monocytes # (A) 0.4 k/uL (0-1.0); Monocytes % (A) 7 %; Neutrophils # (A) 4.6 k/uL (1.3-7.7); Neutrophils % (A) 78 %; Platelet Count 237 k/uL (150-450); RBC 3.49 m/uL (3.80-5.40); RDW 15.7 % (11.5-15.5); WBC 5.9 k/uL (3.8-10.6)
[2023-10-30] MEDS: PANTOPRAZOLE 40 MG TABLET PO SCH (06:35)
[2023-10-30 07:04] LABS: Sodium 134 mmol/L (137-145)
[2023-10-30] MEDS: GABAPENTIN 300 MG CAP PO SCH ×3 (08:14→20:48)
[2023-10-30] MEDS: FUROSEMIDE 20 MG TAB PO SCH (08:14)
[2023-10-30] MEDS: ACETAMINOPHEN TAB 500 MG TAB PO SCH ×4 (08:14→20:49)
[2023-10-30] MEDS: atenoloL 25 MG TAB PO SCH ×2 (08:14→20:49)
[2023-10-30] MEDS: ASPIRIN 81 MG PO SCH (08:14)
[2023-10-30] MEDS: traMADol 50 MG TAB PO SCH ×2 (08:15→20:48)
[2023-10-30] MEDS: amLODIPine 5 MG TAB PO SCH (08:15)
[2023-10-30] MEDS: MULTIVITAMINS, THERA 1 EACH TAB PO SCH (08:16)
[2023-10-30] MEDS: SYMBICORT 160-4.5 MCG INHALER INHALATION SCH ×2 (08:26→21:21)
[2023-10-30] MEDS: IPRATROPIUM-ALBUTEROL 3 ML NEB INHALATION SCH ×3 (08:26→21:21)
[2023-10-30] MEDS ORDERED: LEVOFLOXACIN 750MG-D5W PMX 750 MG in DEXTROSE/WATER 1 150ML.BAG IVPB SCH (09:00)
--- NOTE | 2023-10-30 09:04 | XR ---
EXAMINATION TYPE: XR chest 1V DATE OF EXAM: 10/30/2023 COMPARISON: 10/28/2023 HISTORY: 88-year-old female with pneumonia TECHNIQUE: Single frontal view of the chest is obtained. FINDINGS: Upper patient rotation alters the normal cardiac and mediastinal contours. Subtle underlyi ng interstitial density throughout the right lung greatest in the right lower lung persists with slig htly increased from prior. Atherosclerotic arch calcifications. Heart normal size. No pleural effusio n. IMPRESSION: Portable exam further limited by patient rotation. Patchy infiltrate right lower lung is similar. Fin e interstitial density throughout the remainder of the right lung may be slightly increased.
[2023-10-30 09:12] LABS: African American GFR (CKD) >90 (>60 ml/min/1.73 sqM); Blood Urea Nitrogen 52 mg/dL (7-17); Calcium 10.1 mg/dL (8.4-10.2); Chloride 88 mmol/L (98-107); Glucose 95 mg/dL (74-99); Non-African American GFR(CKD) 79 (>60 ml/min/1.73 sqM); Potassium 4.5 mmol/L (3.5-5.1)
[2023-10-30 09:24] LABS: Anion Gap 9 mmol/L
[2023-10-30 09:40] LABS: Carbon Dioxide 37 mmol/L (22-30)
[2023-10-30 12:46] LABS: ABG Base Excess 17.7 mmol/L; ABG Oxygen Saturation 96.2 % (94-97); ABG PCO2 61 mmHg (35-45); ABG PH 7.45 (7.35-7.45); ABG PO2 74 mmHg (83-108); ABG TCO2 44 mmol/L (19-24); Allen Test Performed? Yes
--- NOTE | 2023-10-30 12:48 | XR ---
EXAMINATION TYPE: XR abdomen 1V DATE OF EXAM: 10/30/2023 Comparison: None Clinical History: 88-year-old female distention, possible obstruction Findings: Lung bases are clear. No dilated small bowel or air-fluid levels. Oral contrast is located throughout the colon extending to the rectum. There is both contrast and glenda e stool distending the rectum up to 7.4 cm wide. Supine imaging limited for assessment of free air. There is some scattered sigmoid diverticulosis noted. Impression: 1. Nonobstructive bowel gas pattern. 2. Oral contrast material present throughout the colon. There is prominent stool distending the rectu m up to 7.4 cm wide. Correlate to exclude fecal impaction here. No other significant stool elsewhere within the colon. 3. Sigmoid diverticulosis.
[2023-10-30 12:52] LABS: ABG HCO3 42 mmol/L (21-25)
--- NOTE | 2023-10-30 15:18 | P.PN ---
Subjective Progress Note Date: 10/30/23 Principal diagnosis: Acute on chronic hypercapnic and hypoxic respiratory failure secondary to acute exacerbation of asthma and right lower lobe pneumonia, community-acquired. Patient is a 88-year-old white female past medical history significant for asthma, chronic oxygen dependence, hyperlipidemia, hypertension, hypothyroidism, among other things. Patient is a questionable historian, she has a delayed response, but is able to answer some of my questions. She lives at [facility] [place]. Apparently, patient presented yesterday with chief complaint of progressively worsening shortness of breath over the last 4-5 days. She does endorse a cough with yellow sputum production. Denies any fevers, chills, chest pain. Denies sick contacts. She denies COPD history, but has history of asthma. She does state that she wears 2 L of home oxygen. Denies any chest pain, heart palpitations, syncope, or lower extremity swelling. Chest x- ray on arrival showed cardiomegaly with mild pulmonary vascular congestion. NT proBNP was elevated at 2120. Follow-up echocardiogram showed a preserved left ventricular ejection fraction of 55-60%. Patient has been started on Lasix 20 mg twice a day. BMP shows sodium 134, potassium 4.6, chloride 95, serum bicarbonate 31, BUN 29, creatinine 0.72, glucose 130. Troponin is less than 0.012. D-dimer was elevated at 0.73. Negative for influenza, RSV, COVID-19. Patient is being monitored on the cardiac stepdown unit. on today's evaluation of 10/27/2023, the patient does not seem to be an aberrant respiratory distress. He is complaining some abdominal discomfort. She is a very poor historian. I think there is underlying confusion. She comes to us from an assisted livingBlood work is essentially unremarkable. Hemoglobin is at 6.8, the white cell count is 11.0 and a platelet count is at 206. Sodium level is at 133, bicarb is at 36, BUN is at 40 with a creatinine of 0.8. Calcium levels at 10.3. UA is negative. CAT scan of the abdomen was also done yesterday and it showed evidence of moderate distal colonic fecal stasis/constipation. There is no indication of any bowel obstruction. There may be some underlying gastritis. The patient is resting comfortably in bed. She is currently on 2 L of oxygen by nasal cannula. Echo of the heart was completed and the patient was found to have a normal ejection fraction of 55- 60%. Right ventricular systolic pressure was estimated to be at 49. She has moderate to severe mitral valve calcification with aortic valve calcification and she has also mild mitral stenosis. On 10/28/2023, the patient was able to have a bowel movement. No significant abdominal pain. No respiratory distress. Medication remains unchanged. She is hemodynamically stable. She is currently on 3 L of oxygen by nasal cannula with a pulse ox of 98%. She is afebrile. No other significant events overnight. On 10/29/2023, the patient is in hypercapnic respiratory failure, maintained on BiPAP at a pressure of 10/5 and she is generating adequate tidal volume. No significant tachypnea. A repeat blood gas was done that showed a pH of 7.32 with a pCO2 of 84 and pO2 of 90. This was on a BiPAP with an FiO2 of 40%. Yesterday's blood gas showed a pH of 7.25 and a pCO2 of 97 and pO2 was 88. Improved compared to yesterday. More alert and awake and communicating. She also had a bowel movement. The chest x-ray from yesterday showed a density in the right lower lobe consistent with possibility of pneumonia. Echocardiogram shows a preserved LV function. Labs from today shows an elderly scan of 6.5, hemoglobin 10.1, sodium is at 133, potassium is 4.9, bicarb is at 40, BUN is a 54 with a creatinine of 0.7. Calcium levels at 10.5. A UA was ordered. Reevaluated today on 10/30/2023, patient is on 3 L nasal cannula, O2 saturations 95%. ABG on 52% FiO2 showed a pO2 of 74 pCO2 61 pH of 7.45, patient has a BiPAP at bedside, but she is refusing to use it. She seems to be comfortable, not in distress, and her ABG is reassuring. WBC count is 5.9 hemoglobin is 9.4. Basic metabolic profile is normal BUN is 52 creatinine 0.68 chest x-ray showed patchy infiltrate right lower lung field, and slight increase in interstitial markings abdominal x-ray showed possible fecal impaction. And sigmoid diverticulosis. Oral contrast located throughout the colon extending to the rectum and some stool distending the rectum up to 7.4 cm white Objective - Vital Signs Vital signs: Vital Signs Temp 98.5 F 10/30/23 08:00 Pulse 82 10/30/23 08:40 Resp 18 10/30/23 08:26 BP 151/61 10/30/23 08:00 Pulse Ox 95 10/30/23 08:26 FiO2 35 10/30/23 00:01 Intake & Output 10/29/23 10/30/23 10/30/23 18:59 06:59 18:59 Output Total 500 375 625 Balance -500 -375 -587 Weight 64 kg Output: Urine 500 375 625 Other: Voiding Method Indwelling Catheter Indwelling Catheter Indwelling Catheter # Bowel Movements 1 1 1 - Exam Physical Exam: Revealed 88-year-old female in no distress on nasal cannula Head: Atraumatic, normocephalic. HEENT:[Neck is supple.] [No neck masses.] [No thyromegaly.] [No JVD.] Chest: [Clear throughout, no crackles, no rhonchi, no wheezes.] Cardiac Exam: [Normal S1 and S2, no S3 gallop, no murmur.] Abdomen: [Soft, nontender, no megaly, no rebound, no guarding, normal bowel sounds.] Extremities: [No clubbing, no edema, no cyanosis.] Neurological Exam: [No focal neurologic deficit.] Patient is alert and oriented 3. Psychiatric: Normal mood affect and normal mental status examination. - Labs CBC & Chem 7: 10/30/23 06:05 10/30/23 06:05 Labs: Abnormal Lab Results - Last 24 Hours (Table) 10/30/23 10/30/23 10/30/23 Range/Units 06:05 06:05 12:40 RBC 3.49 L (3.80-5.40) m/uL Hgb 9.4 L (11.4-16.0) gm/dL Hct 30.4 L (34.0-46.0) % MCHC 30.9 L (31.0-37.0) g/dL RDW 15.7 H (11.5-15.5) % Lymphocytes # 0.4 L (1.0-4.8) k/uL ABG pCO2 61 H (35-45) mmHg ABG pO2 74 L (83-108) mmHg ABG HCO3 42 H* (21-25) mmol/L ABG Total CO2 44 H (19-24) mmol/L Sodium 134 L (137-145) mmol/L Chloride 88 L (98-107) mmol/L Carbon Dioxide 37 H (22-30) mmol/L BUN 52 H (7-17) mg/dL Microbiology - Last 24 Hours (Table) 10/29/23 10:12 Urine Culture - Final Urine,Voided Assessment and Plan Assessment: Impression: Acute on chronic hypoxic and hypercapnic respiratory failure Possible aspiration pneumonia Mild mitral stenosis and preserved LV function Acute exacerbation of chronic bronchial asthma, possible acute exacerbation of COPD the patient is a maximal Chronic hypoxic respiratory failure, on home O2 Dyslipidemia Benign essential hypertension Ex-smoker Hypothyroidism Recommendation: Continue antibiotics, patient is now on vancomycin, she has multiple ALLERGIES to multiple antibiotics Continue bronchodilators Continue BiPAP as needed Continue DuoNeb sue ABG on room air was noted this morning Resume home meds Avoid narcotics and sedatives as much as possible Time with Patient: Less than 30
[2023-10-30] MEDS: ISOSORBIDE MONONITRATE ER 30 MG TAB.ER.24H PO SCH (15:38)
[2023-10-30] MEDS: ATORVASTATIN 40 MG TAB PO SCH (20:49)
--- NOTE | 2023-10-30 21:23 | P.PN ---
Subjective Progress Note Date: 10/30/23 This is an 88 year old female admitted for dyspnea and respiratory failure. Was treated for suspected CHF with IV lasix has since been transitioned to oral lasix. Will be placed on hold today. Patient was also being hydrated. On IV vancomycin for suspected pneumonia, with chest xray showing right lower lobe infiltrate. Patient not tolerating BiPAP repeat ABGs done today per pulmonary showing pH of 7.45, pCO2 61, pO2 74, HCO3 44. Sodium 134, renal function WNL. Patient currently on 3L of nasal cannnula. Review of Systems Constitutional: Denied any fatigue denied any fever. Cardio vascular: denied any chest pain, palpitations Gastrointestinal: denied any nausea, vomiting, diarrhea Pulmonary: Denied any shortness of breath cough Neurologic denied any new focal deficits All inpatient medications were reviewed and appropriate changes in these medications as dictated in the interval history and assessment and plan. PHYSICAL EXAMINATION: GENERAL: The patient is alert and oriented x2, not in any acute distress. Well developed, well nourished. HEENT: Pupils are round and equally reacting to light. EOMI. No scleral icterus. No conjunctival pallor. Normocephalic, atraumatic. No pharyngeal erythema. No thyromegaly. CARDIOVASCULAR: S1 and S2 present. No murmurs, rubs, or gallops. PULMONARY: Chest is clear to auscultation, no wheezing or crackles. Diminished bilaterally. ABDOMEN: Soft, nontender, nondistended, normoactive bowel sounds. No palpable organomegaly. MUSCULOSKELETAL: No joint swelling or deformity. EXTREMITIES: No cyanosis, clubbing, or pedal edema. NEUROLOGICAL: Gross neurological examination did not reveal any focal deficits. Generalized weakness. SKIN: No rashes. Assessment and Plan -Acute on chronic hypoxemic and hypercapnic respiratory failure secondary to Pne umonia and mild CHF exacerbation patient transitioned off BiPAP with improving ABGs currently on 3L of oxygen. -Right lower lobe pneumonia evidence of density developing in the right lower lobe possible aspiration pneumonia, currently on IV vancomycin as patient does have multiple antibiotic allergies. Procalcitonin level 0.16 not indicative of underlying bacterial pneumonia. Speech therapy will be consulted to rule out aspiration. -Constipation and fecal stasis will follow up with abdominal xray and patient may need suppository/enema -Acute on chronic CHF with diastolic dysfunction. was on IV lasix transitioned to oral will place on hold at this time -Metabolic encephalopathy Likely component of CO2 narcosis improving. -Chronic hypoxemic respiratory failure on oxygen at 2 L via nasal cannula -Hypertension -Hyperlipidemia -Hypothyroidism -History of smoking DVT prophylaxis with heparin subcu GI prophylaxis with Protonix Do Not Resuscitate/Do Not Intubate Continue with IV vancomycin per pulmonary, patient off bipap at this time and will continue on nasal cannula. Remains on inhaled bronchodilators and steroids. Fluids to KVO and recommend to hold lasix also will repeat labs in the AM. Abdominal xray ordered. PT/OT consultation. The impression and plan of care has been dictated by Griselda Seo, Nurse Practitioner as directed. Dr. John MD I have performed a history and physical examination and medical decision making of this patient, discussed the same with the dictator, and agree with the dictators assessment and plan as written, documented as a scribe. Based on total visit time, I have performed more than 50% of this visit. Objective - Vital Signs Vital signs: Vital Signs Temp 98.5 F 10/30/23 08:00 Pulse 82 10/30/23 08:40 Resp 18 10/30/23 08:26 BP 151/61 10/30/23 08:00 Pulse Ox 95 10/30/23 08:26 FiO2 35 10/30/23 00:01 Intake & Output 10/29/23 10/30/23 10/30/23 18:59 06:59 18:59 Output Total 500 375 625 Balance -500 -375 -625 Weight 64 kg Output: Urine 500 375 625 Other: Voiding Method Indwelling Catheter Indwelling Catheter Indwelling Catheter # Bowel Movements 1 1 1 - Labs CBC & Chem 7: 10/30/23 06:05 10/30/23 06:05 Labs: Abnormal Lab Results - Last 24 Hours (Table) 10/30/23 10/30/23 Range/Units 06:05 06:05 RBC 3.49 L (3.80-5.40) m/uL Hgb 9.4 L (11.4-16.0) gm/dL Hct 30.4 L (34.0-46.0) % MCHC 30.9 L (31.0-37.0) g/dL RDW 15.7 H (11.5-15.5) % Lymphocytes # 0.4 L (1.0-4.8) k/uL Sodium 134 L (137-145) mmol/L Chloride 88 L (98-107) mmol/L Carbon Dioxide 37 H (22-30) mmol/L BUN 52 H (7-17) mg/dL Microbiology - Last 24 Hours (Table) 10/29/23 10:12 Urine Culture - Final Urine,Voided Assessment and Plan Time with Patient: Less than 30
[2023-10-31] MEDS: HEPARIN SODIUM,PORCINE 5,000 UNIT/ML 1 ML VIAL SQ SCH ×3 (01:55→16:04)
[2023-10-31] MEDS: LACTULOSE 20 GM/30 ML CUP PO SCH ×5 (04:48→21:42)
[2023-10-31] MEDS: PANTOPRAZOLE 40 MG TABLET PO SCH (06:37)
[2023-10-31] MEDS: IPRATROPIUM-ALBUTEROL 3 ML NEB INHALATION SCH ×4 (08:08→22:17)
[2023-10-31] MEDS: SYMBICORT 160-4.5 MCG INHALER INHALATION SCH ×3 (08:08→22:17)
[2023-10-31] MEDS: ASPIRIN 81 MG PO SCH (08:40)
[2023-10-31] MEDS: MULTIVITAMINS, THERA 1 EACH TAB PO SCH (08:40)
[2023-10-31] MEDS: GABAPENTIN 300 MG CAP PO SCH ×3 (08:40→21:42)
[2023-10-31] MEDS: ACETAMINOPHEN TAB 500 MG TAB PO SCH ×4 (08:40→21:43)
[2023-10-31] MEDS: amLODIPine 5 MG TAB PO SCH (08:40)
[2023-10-31] MEDS: atenoloL 25 MG TAB PO SCH ×2 (08:40→21:42)
[2023-10-31] MEDS: traMADol 50 MG TAB PO SCH ×2 (08:41→21:43)
[2023-10-31 08:47] LABS: African American GFR (CKD) >90 (>60 ml/min/1.73 sqM); Anion Gap 7 mmol/L; Blood Urea Nitrogen 41 mg/dL (7-17); Calcium 10.3 mg/dL (8.4-10.2); Carbon Dioxide 39 mmol/L (22-30); Chloride 89 mmol/L (98-107); Glucose 112 mg/dL (74-99); Non-African American GFR(CKD) 80 (>60 ml/min/1.73 sqM); Potassium 4.3 mmol/L (3.5-5.1); Sodium 135 mmol/L (137-145)
[2023-10-31] MEDS ORDERED: LEVOFLOXACIN 750MG-D5W PMX 750 MG in DEXTROSE/WATER 1 150ML.BAG IVPB SCH (09:00)
[2023-10-31] MEDS: ONDANSETRON 4 MG/2 ML VIAL IVP PRN (10:25)
[2023-10-31] MEDS: SODIUM CHLORIDE 0.9% 1,000 ML IV SCH (10:26)
[2023-10-31] MEDS: ISOSORBIDE MONONITRATE ER 30 MG TAB.ER.24H PO SCH (12:16)
[2023-10-31] MEDS: VANCOMYCIN 1,250 MG in SODIUM CHLORIDE 0.9% 250 ML IVPB SCH (12:16)
--- NOTE | 2023-10-31 14:36 | P.PN ---
Subjective Progress Note Date: 10/31/23 Principal diagnosis: Acute on chronic hypercapnic and hypoxic respiratory failure secondary to acute exacerbation of asthma and right lower lobe pneumonia, community-acquired. Patient is a 88-year-old white female past medical history significant for asthma, chronic oxygen dependence, hyperlipidemia, hypertension, hypothyroidism, among other things. Patient is a questionable historian, she has a delayed response, but is able to answer some of my questions. She lives at [facility] [place]. Apparently, patient presented yesterday with chief complaint of progressively worsening shortness of breath over the last 4-5 days. She does endorse a cough with yellow sputum production. Denies any fevers, chills, chest pain. Denies sick contacts. She denies COPD history, but has history of asthma. She does state that she wears 2 L of home oxygen. Denies any chest pain, heart palpitations, syncope, or lower extremity swelling. Chest x- ray on arrival showed cardiomegaly with mild pulmonary vascular congestion. NT proBNP was elevated at 2120. Follow-up echocardiogram showed a preserved left ventricular ejection fraction of 55-60%. Patient has been started on Lasix 20 mg twice a day. BMP shows sodium 134, potassium 4.6, chloride 95, serum bicarbonate 31, BUN 29, creatinine 0.72, glucose 130. Troponin is less than 0.012. D-dimer was elevated at 0.73. Negative for influenza, RSV, COVID-19. Patient is being monitored on the cardiac stepdown unit. on today's evaluation of 10/27/2023, the patient does not seem to be an aberrant respiratory distress. He is complaining some abdominal discomfort. She is a very poor historian. I think there is underlying confusion. She comes to us from an assisted livingBlood work is essentially unremarkable. Hemoglobin is at 6.8, the white cell count is 11.0 and a platelet count is at 206. Sodium level is at 133, bicarb is at 36, BUN is at 40 with a creatinine of 0.8. Calcium levels at 10.3. UA is negative. CAT scan of the abdomen was also done yesterday and it showed evidence of moderate distal colonic fecal stasis/constipation. There is no indication of any bowel obstruction. There may be some underlying gastritis. The patient is resting comfortably in bed. She is currently on 2 L of oxygen by nasal cannula. Echo of the heart was completed and the patient was found to have a normal ejection fraction of 55- 60%. Right ventricular systolic pressure was estimated to be at 49. She has moderate to severe mitral valve calcification with aortic valve calcification and she has also mild mitral stenosis. On 10/28/2023, the patient was able to have a bowel movement. No significant abdominal pain. No respiratory distress. Medication remains unchanged. She is hemodynamically stable. She is currently on 3 L of oxygen by nasal cannula with a pulse ox of 98%. She is afebrile. No other significant events overnight. On 10/29/2023, the patient is in hypercapnic respiratory failure, maintained on BiPAP at a pressure of 10/5 and she is generating adequate tidal volume. No significant tachypnea. A repeat blood gas was done that showed a pH of 7.32 with a pCO2 of 84 and pO2 of 90. This was on a BiPAP with an FiO2 of 40%. Yesterday's blood gas showed a pH of 7.25 and a pCO2 of 97 and pO2 was 88. Improved compared to yesterday. More alert and awake and communicating. She also had a bowel movement. The chest x-ray from yesterday showed a density in the right lower lobe consistent with possibility of pneumonia. Echocardiogram shows a preserved LV function. Labs from today shows an elderly scan of 6.5, hemoglobin 10.1, sodium is at 133, potassium is 4.9, bicarb is at 40, BUN is a 54 with a creatinine of 0.7. Calcium levels at 10.5. A UA was ordered. Reevaluated today on 10/30/2023, patient is on 3 L nasal cannula, O2 saturations 95%. ABG on 52% FiO2 showed a pO2 of 74 pCO2 61 pH of 7.45, patient has a BiPAP at bedside, but she is refusing to use it. She seems to be comfortable, not in distress, and her ABG is reassuring. WBC count is 5.9 hemoglobin is 9.4. Basic metabolic profile is normal BUN is 52 creatinine 0.68 chest x-ray showed patchy infiltrate right lower lung field, and slight increase in interstitial markings abdominal x-ray showed possible fecal impaction. And sigmoid diverticulosis. Oral contrast located throughout the colon extending to the rectum and some stool distending the rectum up to 7.4 cm white Patient was reevaluated today on 10/31/2023, patient is doing well, she is now on 3 L nasal cannula with O2 sats of 94%, denies having any shortness of breath. Yesterday's ABG on room air showed a pO2 of 74 pCO2 61 pH of 7.45, hence I recommended not to use BiPAP unless needed. ABG was relatively reassuring. Basic metabolic profile is basically normal with bicarb of 39, patient is obviously metabolically compensating for chronic respiratory acidosis her pCO2 on admission was as high as 84 with a pH of 7.3 to again clearly the patient is compensating well metabolically for her respiratory acidosis. At times may re quire BiPAP, but presently I don't see any value to use BiPAP on this patient. Objective - Vital Signs Vital signs: Vital Signs Temp 99.1 F 10/31/23 12:15 Pulse 76 10/31/23 12:15 Resp 18 10/31/23 12:15 BP 133/63 10/31/23 12:15 Pulse Ox 94 L 10/31/23 12:15 FiO2 35 10/30/23 00:01 Intake & Output 10/30/23 10/31/23 10/31/23 18:59 06:59 18:59 Intake Total 300 Output Total 1025 400 Balance -1025 -400 300 Intake: Intake, IV Titration 300 Amount Sodium Chloride 0.9% 1, 50 000 ml @ 50 mls/hr IV . Q20H MARY BETH Rx#:[id number] Vancomycin 1,250 mg In 250 Sodium Chloride 0.9% 250 ml @ 125 mls/hr IVPB Q16H MARY BETH Rx#:[id number] Output: Urine 1025 400 Other: Voiding Method Indwelling Catheter Indwelling Catheter Indwelling Catheter # Bowel Movements 1 1 - Exam Physical Exam: Revealed 88-year-old female in no distress on nasal cannula Head: Atraumatic, normocephalic. HEENT:[Neck is supple.] [No neck masses.] [No thyromegaly.] [No JVD.] Chest: [Clear throughout, no crackles, no rhonchi, no wheezes.] Cardiac Exam: [Normal S1 and S2, no S3 gallop, no murmur.] Abdomen: [Soft, nontender, no megaly, no rebound, no guarding, normal bowel sounds.] Extremities: [No clubbing, no edema, no cyanosis.] Neurological Exam: [No focal neurologic deficit.] Patient is alert and oriented 3. Psychiatric: Normal mood affect and normal mental status examination. - Labs CBC & Chem 7: 10/30/23 06:05 10/31/23 07:10 Labs: Abnormal Lab Results - Last 24 Hours (Table) 10/31/23 Range/Units 07:10 Sodium 135 L (137-145) mmol/L Chloride 89 L (98-107) mmol/L Carbon Dioxide 39 H (22-30) mmol/L BUN 41 H (7-17) mg/dL Glucose 112 H (74-99) mg/dL Calcium 10.3 H (8.4-10.2) mg/dL Microbiology - Last 24 Hours (Table) 10/29/23 11:01 Blood Culture - Preliminary Blood 10/29/23 10:12 Urine Culture - Final Urine,Voided Assessment and Plan Assessment: Impression: Acute on chronic hypoxic and hypercapnic respiratory failure Possible aspiration pneumonia Mild mitral stenosis and preserved LV function Acute exacerbation of chronic bronchial asthma, possible acute exacerbation of COPD Chronic hypoxic respiratory failure, on home O2 Dyslipidemia Benign essential hypertension Ex-smoker Hypothyroidism Recommendation: Continue antibiotics, patient is now on vancomycin, she has multiple ALLERGIES t o multiple antibiotics, admitted with the possibility of aspiration pneumonia Continue bronchodilators Continue BiPAP as needed Continue DuRenita updrafts Continue home meds Use BiPAP as needed presently she doesn't need it Avoid narcotics and sedatives as much as possible We'll continue to follow Time with Patient: Less than 30
[2023-10-31 14:52] VITALS: BMI 24.2
--- NOTE | 2023-10-31 15:07 | P.PN ---
Subjective Progress Note Date: 10/31/23 This is an 88 year old female admitted for dyspnea and respiratory failure. Was treated for suspected CHF with IV lasix has since been transitioned to oral lasix. Will be placed on hold today. Patient was also being hydrated. On IV vancomycin for suspected pneumonia, with chest xray showing right lower lobe infiltrate. Patient not tolerating BiPAP repeat ABGs done today per pulmonary showing pH of 7.45, pCO2 61, pO2 74, HCO3 44. Sodium 134, renal function WNL. Patient currently on 3L of nasal cannnula. 10/31/2023 Patient evaluated today with daughter at the bedside. patient is alert x 3 however lethargic falling asleep. per daughter not back to baseline yet. Remains off BiPAP and currently on nasal cannula 3L. Had a large bowel movement. pulmonary following recommending BiPAP as needed. Patient is currently on IV vancomycin. Speech therapy did evaluate and diet was downgraded to chopped dysph agia level 3. Sodium level 135 today. Review of Systems Constitutional: Denied any fatigue denied any fever. Cardio vascular: denied any chest pain, palpitations Gastrointestinal: denied any nausea, vomiting, diarrhea Pulmonary: Denied any shortness of breath cough Neurologic denied any new focal deficits All inpatient medications were reviewed and appropriate changes in these medications as dictated in the interval history and assessment and plan. PHYSICAL EXAMINATION: GENERAL: The patient is alert and oriented x3, not in any acute distress. Well developed, well nourished. HEENT: Pupils are round and equally reacting to light. EOMI. No scleral icterus. No conjunctival pallor. Normocephalic, atraumatic. No pharyngeal erythema. No thyromegaly. CARDIOVASCULAR: S1 and S2 present. No murmurs, rubs, or gallops. PULMONARY: Chest is clear to auscultation, no wheezing or crackles. Diminished bilaterally. ABDOMEN: Soft, nontender, nondistended, normoactive bowel sounds. No palpable o rganomegaly. MUSCULOSKELETAL: No joint swelling or deformity. EXTREMITIES: No cyanosis, clubbing, or pedal edema. NEUROLOGICAL: Gross neurological examination did not reveal any focal deficits. Generalized weakness. Lethargic. SKIN: No rashes. Assessment and Plan -Acute on chronic hypoxemic and hypercapnic respiratory failure secondary to Pneumonia and mild CHF exacerbation patient transitioned off BiPAP with improving ABGs currently on 3L of oxygen. -Right lower lobe pneumonia evidence of density developing in the right lower lobe possible aspiration pneumonia, currently on IV vancomycin as patient does have multiple antibiotic allergies. Procalcitonin level 0.16 not indicative of underlying bacterial pneumonia. -Constipation and fecal stasis resolved treated with laxatives and enemia. -Acute on chronic CHF with diastolic dysfunction. was on IV lasix transitioned to oral will place on hold at this time -Metabolic encephalopathy Likely component of CO2 narcosis improving. -Chronic hypoxemic respiratory failure on oxygen at 2 L via nasal cannula -Hypertension -Hyperlipidemia -Hypothyroidism -History of smoking DVT prophylaxis with heparin subcu GI prophylaxis with Protonix Do Not Resuscitate/Do Not Intubate Continue with IV vancomycin per pulmonary, patient off bipap at this time and will continue on nasal cannula. Remains on inhaled bronchodilators and steroids. Fluids to KVO and recommend to hold lasix at this time. Patient will be gently hydrated and follow up labs in AM. Rehab on discharge. The impression and plan of care has been dictated by Griselda Seo, Nurse Practitioner as directed. Dr. John MD I have performed a history and physical examination and medical decision making of this patient, discussed the same with the dictator, and agree with the dictators assessment and plan as written, documented as a scribe. Based on total visit time, I have performed more than 50% of this visit. Objective - Vital Signs Vital signs: Vital Signs Temp 98.6 F 10/31/23 04:00 Pulse 68 10/31/23 08:08 Resp 18 10/31/23 04:00 BP 144/64 10/31/23 04:00 Pulse Ox 98 10/31/23 04:00 FiO2 35 10/30/23 00:01 Intake & Output 10/30/23 10/31/23 10/31/23 18:59 06:59 18:59 Output Total 1025 400 Balance -1025 -400 Output: Urine 1025 400 Other: Voiding Method Indwelling Catheter Indwelling Catheter # Bowel Movements 1 1 - Labs CBC & Chem 7: 10/30/23 06:05 10/31/23 07:10 Labs: Abnormal Lab Results - Last 24 Hours (Table) 10/30/23 10/30/23 10/31/23 Range/Units 06:05 12:40 07:10 ABG pCO2 61 H (35-45) mmHg ABG pO2 74 L (83-108) mmHg ABG HCO3 42 H* (21-25) mmol/L ABG Total CO2 44 H (19-24) mmol/L Sodium 135 L (137-145) mmol/L Chloride 88 L 89 L (98-107) mmol/L Carbon Dioxide 37 H 39 H (22-30) mmol/L BUN 52 H 41 H (7-17) mg/dL Glucose 112 H (74-99) mg/dL Calcium 10.3 H (8.4-10.2) mg/dL Microbiology - Last 24 Hours (Table) 10/29/23 11:01 Blood Culture - Preliminary Blood 10/29/23 10:12 Urine Culture - Final Urine,Voided Assessment and Plan Time with Patient: Less than 30
[2023-10-31] MEDS: ATORVASTATIN 40 MG TAB PO SCH (21:43)
[2023-11-01] MEDS: LACTULOSE 20 GM/30 ML CUP PO SCH ×5 (00:28→14:42)
[2023-11-01] MEDS: HEPARIN SODIUM,PORCINE 5,000 UNIT/ML 1 ML VIAL SQ SCH ×4 (00:36→23:19)
[2023-11-01] MEDS ORDERED: VANCOMYCIN TROUGH DUE 1 EACH MISC MISCELLANE ONE (02:00)
[2023-11-01 02:39] LABS: Basophils # (A) 0.1 k/uL (0-0.2); Basophils % (A) 1 %; Eosinophils # (A) 0.4 k/uL (0-0.7); Eosinophils % (A) 5 %; HCT 28.8 % (34.0-46.0); HGB 8.8 gm/dL (11.4-16.0); Hypochromasia Marked; Lymphocytes # (A) 0.6 k/uL (1.0-4.8); Lymphocytes % (A) 8 %; MCH 27.8 pg (25.0-35.0); MCHC 30.6 g/dL (31.0-37.0); MCV 90.9 fL (80.0-100.0); Mean Platelet Volume 7.5; Monocytes # (A) 0.6 k/uL (0-1.0); Monocytes % (A) 8 %; Neutrophils # (A) 5.4 k/uL (1.3-7.7); Neutrophils % (A) 75 %; Platelet Count 264 k/uL (150-450); RBC 3.17 m/uL (3.80-5.40); RDW 15.9 % (11.5-15.5); WBC 7.2 k/uL (3.8-10.6)
[2023-11-01] MEDS: VANCOMYCIN 1,250 MG in SODIUM CHLORIDE 0.9% 250 ML IVPB SCH ×2 (03:03→18:14)
[2023-11-01 03:40] LABS: African American GFR (CKD) 86 (>60 ml/min/1.73 sqM); Blood Urea Nitrogen 35 mg/dL (7-17); Calcium 9.8 mg/dL (8.4-10.2); Chloride 93 mmol/L (98-107); Glucose 150 mg/dL (74-99); Magnesium 1.8 mg/dL (1.6-2.3); Non-African American GFR(CKD) 75 (>60 ml/min/1.73 sqM); Potassium 4.1 mmol/L (3.5-5.1); Sodium 135 mmol/L (137-145)
[2023-11-01 03:46] LABS: Anion Gap 8 mmol/L
[2023-11-01 03:47] LABS: Carbon Dioxide 34 mmol/L (22-30)
[2023-11-01] MEDS: SODIUM CHLORIDE 0.9% 1,000 ML IV SCH ×2 (05:53→23:20)
[2023-11-01] MEDS: PANTOPRAZOLE 40 MG TABLET PO SCH (06:21)
[2023-11-01] MEDS: SYMBICORT 160-4.5 MCG INHALER INHALATION SCH ×2 (07:46→21:45)
[2023-11-01] MEDS: IPRATROPIUM-ALBUTEROL 3 ML NEB INHALATION SCH ×3 (07:46→21:45)
[2023-11-01] MEDS: ACETAMINOPHEN TAB 500 MG TAB PO SCH ×4 (08:22→20:48)
[2023-11-01] MEDS: GABAPENTIN 300 MG CAP PO SCH (08:22)
[2023-11-01] MEDS: ASPIRIN 81 MG PO SCH (08:22)
[2023-11-01] MEDS: MULTIVITAMINS, THERA 1 EACH TAB PO SCH (08:22)
[2023-11-01] MEDS: amLODIPine 5 MG TAB PO SCH (08:22)
[2023-11-01] MEDS: atenoloL 25 MG TAB PO SCH ×2 (08:22→20:48)
[2023-11-01] MEDS: traMADol 50 MG TAB PO SCH (08:22)
[2023-11-01 11:25] LABS: ABG HCO3 38 mmol/L (21-25); ABG PH 7.23 (7.35-7.45); ABG PO2 85 mmHg (83-108); ABG TCO2 40 mmol/L (19-24); Allen Test Performed? Yes
[2023-11-01 11:29] LABS: ABG PCO2 90 mmHg (35-45)
--- NOTE | 2023-11-01 13:10 | XR ---
EXAMINATION TYPE: XR chest 1V portable DATE OF EXAM: 11/01/2023 COMPARISON: 10/30/2023 INDICATION: CHF TECHNIQUE: Single frontal view of the chest is obtained. FINDINGS: The heart size is mildly prominent. The pulmonary vasculature is dominant. The lungs are clear. No acute pulmonary process IMPRESSION: 1. Mild cardiomegaly with prominent coronary vascular markings correlate for congestive heart failure . Findings appear to be improving from comparison
--- NOTE | 2023-11-01 13:38 | P.PN ---
Subjective Progress Note Date: 11/01/23 Principal diagnosis: Acute on chronic hypercapnic and hypoxic respiratory failure secondary to acute exacerbation of asthma and right lower lobe pneumonia, community-acquired. Patient is a 88-year-old white female past medical history significant for asthma, chronic oxygen dependence, hyperlipidemia, hypertension, hypothyroidism, among other things. Patient is a questionable historian, she has a delayed response, but is able to answer some of my questions. She lives at [facility]. Apparently, patient presented yesterday with chief complaint of progressively worsening shortness of breath over the last 4-5 days. She does endorse a cough with yellow sputum production. Denies any fevers, chills, chest pain. Denies sick contacts. She denies COPD history, but has history of asthma. She does state that she wears 2 L of home oxygen. Denies any chest pain, heart palpitations, syncope, or lower extremity swelling. Chest x- ray on arrival showed cardiomegaly with mild pulmonary vascular congestion. NT proBNP was elevated at 2120. Follow-up echocardiogram showed a preserved left ventricular ejection fraction of 55-60%. Patient has been started on Lasix 20 mg twice a day. BMP shows sodium 134, potassium 4.6, chloride 95, serum bicarbonate 31, BUN 29, creatinine 0.72, glucose 130. Troponin is less than 0.012. D-dimer was elevated at 0.73. Negative for influenza, RSV, COVID-19. Patient is being monitored on the cardiac stepdown unit. on today's evaluation of 10/27/2023, the patient does not seem to be an aberrant respiratory distress. He is complaining some abdominal discomfort. She is a very poor historian. I think there is underlying confusion. She comes to us from an assisted living[facility] work is essentially unremarkable. Hemoglobin is at 6.8, the white cell count is 11.0 and a platelet count is at 206. Sodium level is at 133, bicarb is at 36, BUN is at 40 with a creatinine of 0.8. Calcium levels at 10.3. UA is negative. CAT scan of the abdomen was also done yesterday and it showed evidence of moderate distal colonic fecal stasis/constipation. There is no indication of any bowel obstruction. There may be some underlying gastritis. The patient is resting comfortably in bed. She is currently on 2 L of oxygen by nasal cannula. Echo of the heart was completed and the patient was found to have a normal ejection fraction of 55- 60%. Right ventricular systolic pressure was estimated to be at 49. She has moderate to severe mitral valve calcification with aortic valve calcification and she has also mild mitral stenosis. On 10/28/2023, the patient was able to have a bowel movement. No significant abdominal pain. No respiratory distress. Medication remains unchanged. She is hemodynamically stable. She is currently on 3 L of oxygen by nasal cannula with a pulse ox of 98%. She is afebrile. No other significant events overnight. On 10/29/2023, the patient is in hypercapnic respiratory failure, maintained on BiPAP at a pressure of 10/5 and she is generating adequate tidal volume. No significant tachypnea. A repeat blood gas was done that showed a pH of 7.32 with a pCO2 of 84 and pO2 of 90. This was on a BiPAP with an FiO2 of 40%. Yesterday's blood gas showed a pH of 7.25 and a pCO2 of 97 and pO2 was 88. Improved compared to yesterday. More alert and awake and communicating. She also had a bowel movement. The chest x-ray from yesterday showed a density in the right lower lobe consistent with possibility of pneumonia. Echocardiogram shows a preserved LV function. Labs from today shows an elderly scan of 6.5, hemoglobin 10.1, sodium is at 133, potassium is 4.9, bicarb is at 40, BUN is a 54 with a creatinine of 0.7. Calcium levels at 10.5. A UA was ordered. Reevaluated today on 10/30/2023, patient is on 3 L nasal cannula, O2 saturations 95%. ABG on 52% FiO2 showed a pO2 of 74 pCO2 61 pH of 7.45, patient has a BiPAP at bedside, but she is refusing to use it. She seems to be comfortable, not in distress, and her ABG is reassuring. WBC count is 5.9 hemoglobin is 9.4. Basic metabolic profile is normal BUN is 52 creatinine 0.68 chest x-ray showed patchy infiltrate right lower lung field, and slight increase in interstitial markings abdominal x-ray showed possible fecal impaction. And sigmoid diverticulosis. Oral contrast located throughout the colon extending to the rectum and some stool distending the rectum up to 7.4 cm white Patient was reevaluated today on 10/31/2023, patient is doing well, she is now on 3 L nasal cannula with O2 sats of 94%, denies having any shortness of breath. Yesterday's ABG on room air showed a pO2 of 74 pCO2 61 pH of 7.45, hence I recommended not to use BiPAP unless needed. ABG was relatively reassuring. Basic metabolic profile is basically normal with bicarb of 39, patient is obviously metabolically compensating for chronic respiratory acidosis her pCO2 on admission was as high as 84 with a pH of 7.3 to again clearly the patient is compensating well metabolically for her respiratory acidosis. At times may re quire BiPAP, but presently I don't see any value to use BiPAP on this patient. Reevaluated today on 11/01/2023, patient is quite lethargic today, she is on BiPAP, ABG on BiPAP showed a pO2 of 85 pCO2 of 90 pH of 7.23, hence the IPAP was increased to 16, and FiO2 cut down to 35%. Patient is intermittently developing worsening hypercapnia with shallow breathing, although her chest x-ray is showing improvement compared to the admission chest x-ray. Echocardiogram showed good LV function. CBC is relatively normal except for hemoglobin of 8.8 basic metabolic profile is normal, bicarb is elevated at 39, that implies that the patient has chronic hypercapnic respiratory failure with metabolic co mpensation be but at this time seems to be acute on chronic hypercapnia. Objective - Vital Signs Vital signs: Vital Signs Temp 98.3 F 11/01/23 12:00 Pulse 76 11/01/23 12:20 Resp 20 11/01/23 12:00 BP 108/78 11/01/23 12:00 Pulse Ox 94 L 11/01/23 12:00 FiO2 40 11/01/23 12:00 Intake & Output 10/31/23 11/01/23 11/01/23 18:59 06:59 18:59 Intake Total 300 10 20 Output Total 400 Balance 300 -390 20 Weight 64 kg Intake: IV 10 20 Invasive Line 3 10 20 Intake, IV Titration 300 Amount Sodium Chloride 0.9% 1, 50 000 ml @ 50 mls/hr IV . Q20H [facility] Rx#:[id number] Vancomycin 1,250 mg In 250 Sodium Chloride 0.9% 250 ml @ 125 mls/hr IVPB Q16H [facility] Rx#:[id number] Output: Urine 400 Other: Voiding Method Indwelling Catheter Indwelling Catheter Indwelling Catheter # Bowel Movements 1 - Exam Physical Exam: Revealed 88-year-old female in no distress on BiPAP, difficult to arouse, her pCO2 was noted to be 90 on the ABG Head: Atraumatic, normocephalic. HEENT:[Neck is supple.] [No neck masses.] [No thyromegaly.] [No JVD.] Chest: [Clear throughout, no crackles, no rhonchi, no wheezes.] Cardiac Exam: [Normal S1 and S2, no S3 gallop, no murmur.] Abdomen: [Soft, nontender, no megaly, no rebound, no guarding, normal bowel sounds.] Extremities: [No clubbing, no edema, no cyanosis.] Neurological Exam: Not assessed, patient is difficult to arouse, on BiPAP. Opens eyes but does not follow any instructions Psychiatric: Could not assess - Labs CBC & Chem 7: 11/01/23 02:11 11/01/23 02:11 Labs: Abnormal Lab Results - Last 24 Hours (Table) 11/01/23 11/01/23 11/01/23 Range/Units 02:11 02:11 11:00 RBC 3.17 L (3.80-5.40) m/uL Hgb 8.8 L (11.4-16.0) gm/dL Hct 28.8 L (34.0-46.0) % MCHC 30.6 L (31.0-37.0) g/dL RDW 15.9 H (11.5-15.5) % Lymphocytes # 0.6 L (1.0-4.8) k/uL ABG pH 7.23 L (7.35-7.45) ABG pCO2 90 H* (35-45) mmHg ABG HCO3 38 H (21-25) mmol/L ABG Total CO2 40 H (19-24) mmol/L Sodium 135 L (137-145) mmol/L Chloride 93 L (98-107) mmol/L Carbon Dioxide 34 H (22-30) mmol/L BUN 35 H (7-17) mg/dL Glucose 150 H (74-99) mg/dL Microbiology - Last 24 Hours (Table) 10/29/23 11:01 Blood Culture - Preliminary Blood Assessment and Plan Assessment: Impression: Acute on chronic hypoxic and hypercapnic respiratory failure Possible aspiration pneumonia Mild mitral stenosis and preserved LV function Acute exacerbation of chronic bronchial asthma, possible acute exacerbation of COPD Chronic hypoxic respiratory failure, on home O2 Dyslipidemia Benign essential hypertension Ex-smoker Hypothyroidism Recommendation: Continue antibiotics, patient is now on vancomycin, she has multiple ALLERGIES to multiple antibiotics, admitted with the possibility of aspiration pneumonia Continue bronchodilators Continue BiPAP Continue DuoNeb updrafts Continue home meds Considering these episodes of hypercapnia happening frequently, I'm recommending that we stop her hydrocodone, tramadol, and cut down the dose of gabapentin to 300 mg twice a day Updated her daughter at bedside on her condition Propofol prognosis seems to be very poor and guarded. Avoid narcotics and sedatives as much as possible We'll continue to follow Time with Patient: Less than 30
[2023-11-01] MEDS: ISOSORBIDE MONONITRATE ER 30 MG TAB.ER.24H PO SCH (13:46)
--- NOTE | 2023-11-01 15:12 | P.PN ---
Subjective Progress Note Date: 11/01/23 This is an 88 year old female admitted for dyspnea and respiratory failure. Was treated for suspected CHF with IV lasix has since been transitioned to oral lasix. Will be placed on hold today. Patient was also being hydrated. On IV vancomycin for suspected pneumonia, with chest xray showing right lower lobe infiltrate. Patient not tolerating BiPAP repeat ABGs done today per pulmonary showing pH of 7.45, pCO2 61, pO2 74, HCO3 44. Sodium 134, renal function WNL. Patient currently on 3L of nasal cannnula. 10/31/2023 Patient evaluated today with daughter at the bedside. patient is alert x 3 however lethargic falling asleep. per daughter not back to baseline yet. Remains off BiPAP and currently on nasal cannula 3L. Had a large bowel movement. pulmonary following recommending BiPAP as needed. Patient is currently on IV vancomycin. Speech therapy did evaluate and diet was downgraded to chopped dysph agia level 3. Sodium level 135 today. 11/01/2023 Patient is evaluated on stepdown unit today. Mentation has not improved currently obtunded. ABGs completed today reveal pCO2 of 90 compatible with re spiratory acidosis, pH has dropped to 7.23. Patient has been placed on BiPAP. White count normal at 7.2, hgb 8.8, sodium 135, potassium 4.1, BUN 35, creatinine 0.73. Remains on IV vancomycin. Pulmonary following. Review of Systems Unable to complete review of systems at this time patient is on BiPAP and not arousable. PHYSICAL EXAMINATION: GENERAL: The patient is alert and oriented x1, obtunded, not in any acute distress. Well developed, well nourished. On BiPAP. HEENT: Pupils are round and equally reacting to light. EOMI. No scleral icterus. No conjunctival pallor. Normocephalic, atraumatic. No pharyngeal erythema. No thyromegaly. CARDIOVASCULAR: S1 and S2 present. No murmurs, rubs, or gallops. PULMONARY: Chest is clear to auscultation, no wheezing or crackles. Diminished bilaterally. ABDOMEN: Soft, nontender, nondistended, normoactive bowel sounds. No palpable organomegaly. MUSCULOSKELETAL: No joint swelling or deformity. EXTREMITIES: No cyanosis, clubbing, or pedal edema. NEUROLOGICAL: Gross neurological examination did not reveal any focal deficits. Generalized weakness. Lethargic. SKIN: No rashes. Assessment and Plan -Acute on chronic hypoxemic and hypercapnic respiratory failure secondary to Pneumonia and mild CHF exacerbation. ABGs reveal respiratory acidosis patient has been placed back on BiPAP 40% FiO2 with pCO2 of 90. -Right lower lobe pneumonia evidence of density developing in the right lower lobe possible aspiration pneumonia, currently on IV vancomycin as patient does have multiple antibiotic allergies. Procalcitonin level 0.16 not indicative of underlying bacterial pneumonia. Speech therapy has down graded diet. -Constipation and fecal stasis resolved treated with laxatives and enemia. Resolved. -Acute on chronic CHF with diastolic dysfunction. was on IV lasix transitioned to oral will place on hold at this time -Metabolic encephalopathy Likely component of CO2 narcosis improving. -Chronic hypoxemic respiratory failure on oxygen at 2 L via nasal cannula since having covid infection 2 years ago. -Hypertension -Hyperlipidemia -Hypothyroidism -History of smoking DVT prophylaxis with heparin subcu GI prophylaxis with Protonix Do Not Resuscitate/Do Not Intubate Continue with IV vancomycin per pulmonary, patient now back on BiPAP. Remains on inhaled bronchodilators and steroids. Continue to hold lasix at this time patient is being hydrated normal saline at 50. Repeat labs in AM. Rehab on discharge. The impression and plan of care has been dictated by Griselda Seo, Nurse Practitioner as directed. Dr. Jonh MD I have performed a history and physical examination and medical decision making of this patient, discussed the same with the dictator, and agree with the dictators assessment and plan as written, documented as a scribe. Based on total visit time, I have performed more than 50% of this visit. Objective - Vital Signs Vital signs: Vital Signs Temp 98.3 F 11/01/23 14:41 Pulse 72 11/01/23 14:41 Resp 18 11/01/23 14:41 BP 140/52 11/01/23 14:41 Pulse Ox 95 11/01/23 14:41 FiO2 40 11/01/23 12:00 Intake & Output 10/31/23 11/01/23 11/01/23 18:59 06:59 18:59 Intake Total 300 10 20 Output Total 400 Balance 300 -390 20 Weight 64 kg Intake: IV 10 20 Invasive Line 3 10 20 Intake, IV Titration 300 Amount Sodium Chloride 0.9% 1, 50 000 ml @ 50 mls/hr IV . Q20H [facility] Rx#:[id number] Vancomycin 1,250 mg In 250 Sodium Chloride 0.9% 250 ml @ 125 mls/hr IVPB Q16H [facility] Rx#:[id number] Output: Urine 400 Other: Voiding Method Indwelling Catheter Indwelling Catheter Indwelling Catheter # Bowel Movements 1 - Labs CBC & Chem 7: 11/01/23 02:11 11/01/23 02:11 Labs: Abnormal Lab Results - Last 24 Hours (Table) 11/01/23 11/01/23 11/01/23 Range/Units 02:11 02:11 11:00 RBC 3.17 L (3.80-5.40) m/uL Hgb 8.8 L (11.4-16.0) gm/dL Hct 28.8 L (34.0-46.0) % MCHC 30.6 L (31.0-37.0) g/dL RDW 15.9 H (11.5-15.5) % Lymphocytes # 0.6 L (1.0-4.8) k/uL ABG pH 7.23 L (7.35-7.45) ABG pCO2 90 H* (35-45) mmHg ABG HCO3 38 H (21-25) mmol/L ABG Total CO2 40 H (19-24) mmol/L Sodium 135 L (137-145) mmol/L Chloride 93 L (98-107) mmol/L Carbon Dioxide 34 H (22-30) mmol/L BUN 35 H (7-17) mg/dL Glucose 150 H (74-99) mg/dL Microbiology - Last 24 Hours (Table) 10/29/23 11:01 Blood Culture - Preliminary Blood Assessment and Plan Time with Patient: Less than 30
[2023-11-01] MEDS: ATORVASTATIN 40 MG TAB PO SCH (20:48)
[2023-11-01] MEDS ORDERED: GABAPENTIN 300 MG CAP PO SCH (21:00)
[2023-11-02] MEDS: PANTOPRAZOLE 40 MG TABLET PO SCH (06:26)
[2023-11-02] MEDS: SYMBICORT 160-4.5 MCG INHALER INHALATION SCH (08:03)
[2023-11-02] MEDS: IPRATROPIUM-ALBUTEROL 3 ML NEB INHALATION SCH (08:03)
[2023-11-02 09:04] LABS: African American GFR (CKD) >90 (>60 ml/min/1.73 sqM); Anion Gap 5 mmol/L; Blood Urea Nitrogen 38 mg/dL (7-17); Calcium 10.1 mg/dL (8.4-10.2); Carbon Dioxide 38 mmol/L (22-30); Chloride 96 mmol/L (98-107); Glucose 141 mg/dL (74-99); Non-African American GFR(CKD) 87 (>60 ml/min/1.73 sqM); Potassium 4.4 mmol/L (3.5-5.1); Sodium 139 mmol/L (137-145)
[2023-11-02 10:54] VITALS: BP 113/57; PULSE 89; RESP 13; TEMP 97.8
--- NOTE | 2023-11-02 13:14 | P.PN ---
Subjective Progress Note Date: 11/02/23 Principal diagnosis: Acute on chronic hypercapnic and hypoxic respiratory failure secondary to acute exacerbation of asthma and right lower lobe pneumonia, Patient is a 88-year-old white female past medical history significant for asthma, chronic oxygen dependence, hyperlipidemia, hypertension, hypothyroidism, among other things. Patient is a questionable historian, she has a delayed response, but is able to answer some of my questions. [place] [facility] [place], patient presented yesterday with chief complaint of progressively worsening shortness of breath over the last 4-5 days. She does endorse a cough with yellow sputum production. Denies any fevers, chills, chest pain. Denies sick contacts. She denies COPD history, but has his tory of asthma. She does state that she wears 2 L of home oxygen. Denies any chest pain, heart palpitations, syncope, or lower extremity swelling. Chest x- ray on arrival showed cardiomegaly with mild pulmonary vascular congestion. NT proBNP was elevated at 2120. Follow-up echocardiogram showed a preserved left ventricular ejection fraction of 55-60%. Patient has been started on Lasix 20 mg twice a day. BMP shows sodium 134, potassium 4.6, chloride 95, serum bicarbonate 31, BUN 29, creatinine 0.72, glucose 130. Troponin is less than 0.012. D-dimer was elevated at 0.73. Negative for influenza, RSV, COVID-19. Patient is being monitored on the cardiac stepdown unit. on today's evaluation of 10/27/2023, the patient does not seem to be an aberrant respiratory distress. He is complaining some abdominal discomfort. She is a very poor historian. I think there is underlying confusion. She comes to us from an assisted living[facility] work is essentially unremarkable. Hemoglobin is at 6.8, the white cell count is 11.0 and a platelet count is at 206. Sodium level is at 133, bicarb is at 36, BUN is at 40 with a creatinine of 0.8. Calcium levels at 10.3. UA is negative. CAT scan of the abdomen was also done yesterday and it showed evidence of moderate distal colonic fecal stasis/ constipation. There is no indication of any bowel obstruction. There may be some underlying gastritis. The patient is resting comfortably in bed. She is currently on 2 L of oxygen by nasal cannula. Echo of the heart was completed and the patient was found to have a normal ejection fraction of 55-60%. Right ventricular systolic pressure was estimated to be at 49. She has moderate to severe mitral valve calcification with aortic valve calcification and she has also mild mitral stenosis. On 10/28/2023, the patient was able to have a bowel movement. No significant abdominal pain. No respiratory distress. Medication remains unchanged. She is hemodynamically stable. She is currently on 3 L of oxygen by nasal cannula with a pulse ox of 98%. She is afebrile. No other significant events overnight. On 10/29/2023, the patient is in hypercapnic respiratory failure, maintained on BiPAP at a pressure of 10/5 and she is generating adequate tidal volume. No significant tachypnea. A repeat blood gas was done that showed a pH of 7.32 with a pCO2 of 84 and pO2 of 90. This was on a BiPAP with an FiO2 of 40%. Yesterday's blood gas showed a pH of 7.25 and a pCO2 of 97 and pO2 was 88. Improved compared to yesterday. More alert and awake and communicating. She also had a bowel movement. The chest x-ray from yesterday showed a density in the right lower lobe consistent with possibility of pneumonia. Echocardiogram shows a preserved LV function. Labs from today shows an elderly scan of 6.5, hemoglobin 10.1, sodium is at 133, potassium is 4.9, bicarb is at 40, BUN is a 54 with a creatinine of 0.7. Calcium levels at 10.5. A UA was ordered. Reevaluated today on 10/30/2023, patient is on 3 L nasal cannula, O2 saturations 95%. ABG on 52% FiO2 showed a pO2 of 74 pCO2 61 pH of 7.45, patient has a BiPAP at bedside, but she is refusing to use it. She seems to be comfortable, not in distress, and her ABG is reassuring. WBC count is 5.9 hemoglobin is 9.4. Basic metabolic profile is normal BUN is 52 creatinine 0.68 chest x-ray showed patchy infiltrate right lower lung field, and slight increase in interstitial markings abdominal x-ray showed possible fecal impaction. And sigmoid diverticulosis. Oral contrast located throughout the colon extending to the rectum and some stool distending the rectum up to 7.4 cm white Patient was reevaluated today on 10/31/2023, patient is doing well, she is now on 3 L nasal cannula with O2 sats of 94%, denies having any shortness of breath. Yesterday's ABG on room air showed a pO2 of 74 pCO2 61 pH of 7.45, hence I recommended not to use BiPAP unless needed. ABG was relatively reassuring. Basic metabolic profile is basically normal with bicarb of 39, patient is obviously metabolically compensating for chronic respiratory acidosis her pCO2 on admission was as high as 84 with a pH of 7.3 to again clearly the patient is compensating well metabolically for her respiratory acidosis. At times may require BiPAP, but presently I don't see any value to use BiPAP on this patient. Reevaluated today on 11/01/2023, patient is quite lethargic today, she is on BiPAP, ABG on BiPAP showed a pO2 of 85 pCO2 of 90 pH of 7.23, hence the IPAP was increased to 16, and FiO2 cut down to 35%. Patient is intermittently developing worsening hypercapnia with shallow breathing, although her chest x-ray is showing improvement compared to the admission chest x-ray. Echocardiogram showed good LV function. CBC is relatively normal except for hemoglobin of 8.8 basic metabolic profile is normal, bicarb is elevated at 39, that implies that the patient has chronic hypercapnic respiratory failure with metabolic compensation be but at this time seems to be acute on chronic hypercapnia. Patient was reevaluated today on , patient remains on BiPAP, and multiple family members are sitting at bedside. Patient seems to be BiPAP dependent, nonetheless she remains quite lethargic, obtunded, arousable briefly, but she tends to fall asleep again. And I'm expecting that the patient's hypercapnia is not improving much. Updated her family members about her condition, and the fact that the patient is doing poorly, does not seem to be improving much, CODE STATUS has already been established, family is more inclined to consider comfort care measures at this point. They seem to be relieved when I mentioned the option of comfort care measures, and definitely the option of intubation and mechanical ventilation is not in the picture. Discussed also the option of continuing the same care for now and recheck ABG, but everyone seems to be inclined to consider comfort care. Considering the family's wishes at bedside, I would recommend comfort care measures on this patient. Labs noted today were noted including electrolytes profile bicarb remains at 38 chest clearly an indication that the patient has chronic metabolic compensation for chronic respiratory acidosis Objective - Vital Signs Vital signs: Vital Signs Temp 97.8 F 11/02/23 08:00 Pulse 90 11/02/23 08:20 Resp 13 11/02/23 08:00 BP 113/57 11/02/23 08:00 Pulse Ox 96 11/02/23 08:05 FiO2 40 11/02/23 11:37 Intake & Output 11/01/23 11/02/23 11/02/23 18:59 06:59 18:59 Intake Total 20 120 Output Total 400 200 300 Balance -380 -200 -180 Intake: IV 20 Invasive Line 3 20 Oral 120 Output: Urine 400 200 300 Other: Voiding Method Indwelling Catheter Indwelling Catheter Indwelling Catheter # Bowel Movements 1 - Exam Physical Exam: Revealed 88-year-old female on BiPAP, quite sleepy, arousable but tends to fall asleep easily. Head: Atraumatic, normocephalic. HEENT:[Neck is supple.] [No neck masses.] [No thyromegaly.] [No JVD.] Chest: [Good breath sound bilaterally no rhonchi no wheezes Cardiac Exam: [Normal S1 and S2, no S3 gallop, no murmur.] Abdomen: [Soft, nontender, no megaly, no rebound, no guarding, normal bowel sounds.] Extremities: [No clubbing, no edema, no cyanosis.] Neurological Exam: Not assessed, patient is difficult to arouse, on BiPAP. Opens eyes but does not follow any instructions, tends to fall asleep easily. Psychiatric: Could not assess - Labs CBC & Chem 7: 11/01/23 02:11 11/02/23 08:16 Labs: Abnormal Lab Results - Last 24 Hours (Table) 11/02/23 Range/Units 08:16 Chloride 96 L (98-107) mmol/L Carbon Dioxide 38 H (22-30) mmol/L BUN 38 H (7-17) mg/dL Creatinine 0.50 L (0.52-1.04) mg/dL Glucose 141 H (74-99) mg/dL Microbiology - Last 24 Hours (Table) 10/29/23 11:01 Blood Culture - Preliminary Blood Assessment and Plan Assessment: Impression: Acute on chronic hypoxic and hypercapnic respiratory failure Possible aspiration pneumonia Mild mitral stenosis and preserved LV function Acute exacerbation of chronic bronchial asthma, possible acute exacerbation of COPD Chronic hypoxic respiratory failure, on home O2 Dyslipidemia Benign essential hypertension Ex-smoker Hypothyroidism Recommendation: Had a long discussion with all family members at bedside Discussed the patient's clinical condition and the different options available. Family is seriously inclined to proceed with comfort care measures. Will recommend comfort care on this patient/hospice Will have nurses notify the admitting physician. We'll follow. Time with Patient: Less than 30
[2023-11-02] MEDS: HEPARIN SODIUM,PORCINE 5,000 UNIT/ML 1 ML VIAL SQ SCH (13:19)
[2023-11-02] MEDS: ACETAMINOPHEN TAB 500 MG TAB PO SCH (13:19)
[2023-11-02] MEDS: amLODIPine 5 MG TAB PO SCH (13:20)
[2023-11-02] MEDS ORDERED: FORMOTEROL FUMARATE 20 MCG/2 ML NEBU INHALATION SCH (20:00)
[2023-11-02] MEDS ORDERED: BUDESONIDE 1 MG/2 ML NEBU INHALATION SCH (20:00)
--- NOTE | 2023-11-02 20:05 | P.DS ---
Providers Date of admission: 10/25/23 12:39 Attending physician: Gretchen Montgomery Consults: 10/24/23 23:22 Consult Physician Urgent Consulting Provider: Tin Alberts Consult Reason/Comments: New onset CHF Do you want consulting provider notified?: Yes 10/25/23 12:40 Consult Physician Routine Consulting Provider: Heraclio Osorio Consult Reason/Comments: copd Do you want consulting provider notified?: Yes Primary care physician: Alex Ibarra Hospital Course: Final Diagnosis -Acute on chronic hypoxemic and hypercapnic respiratory failure secondary to Pneumonia and mild CHF exacerbation. ABGs reveal respiratory acidosis patient has been placed back on BiPAP 40% FiO2 with pCO2 of 90. -Right lower lobe pneumonia evidence of density developing in the right lower lobe possible aspiration pneumonia, currently on IV vancomycin as patient does have multiple antibiotic allergies. Procalcitonin level 0.16 not indicative of underlying bacterial pneumonia. Speech therapy has down graded diet. -Constipation and fecal stasis resolved treated with laxatives and enemia. Resolved. -Acute on chronic CHF with diastolic dysfunction. was on IV lasix transitioned to oral will place on hold at this time -Metabolic encephalopathy Likely component of CO2 narcosis improving. -Chronic hypoxemic respiratory failure on oxygen at 2 L via nasal cannula since having covid infection 2 years ago. -Hypertension -Hyperlipidemia -Hypothyroidism -History of smoking DVT prophylaxis with heparin subcu GI prophylaxis with Protonix Do Not Resuscitate/Do Not Intubate Discharge Disposition Patient is being transitioned to general inpatient hospice secondary to respiratory failure and CHF Hospital Course Patient is a 88-year-old female admitted to the hospital on 10/29/23 with a past medical history of hypertension, hyperlipidemia, history of COVID-19 infection, valvular heart disease and chronic hypoxic respiratory failure on home oxygen, COPD and current impairment presents to ER with complaints of worsening shortness of breath. Patient was also recently admitted to the hospital at [facility] per septic shock and pneumonia followed by external stay at [facility]. Patient presents to the hospital with worsening shortness of breath for the past 4 days. Patient is also having chest tightness/pain with coughing. 2D echocardiogram showed technically difficult study. Normal LV s ystolic function. Severe mitral annular calcification with mild mitral stenosis, aortic sclerosis with mild to moderate aortic stenosis. Patient had CTA chest showed no CT evidence of acute PE. Bilateral central opacities suggestive of edema/developing acute infiltrates. Suspect fluid overload state. Asymmetric findings in the right upper lobe favor developing acute infiltrate. Patient was diuresed with IV lasix. CT of the abdomen and pelvis was done showed there is moderate distal colonic fecal stasis or constipation. No bowel obstruction. Correlate clinically. Suspect gastritis involving the fundus and body of stomach. Patient with worsening mentation and lethargy. ABGs done showing respiratory acidosis and elevated pCO2 of 90 and pH of 7.23. She was placed on BiPAP and gentle hydration. Given antibiotics for the suspected right lower lobe pneumonia. Not improving on BiPAP. Chest xray on 11/01/23 reveals mild cardiomegaly with prominent coronary vascular markings correlate for CHF. Findings are improved from prior. Patient has normal sodium now 139 with gentle hydration. Renal function showing BUN 38 creatinine 0.50. Patient not improving and family at bedside have decided for comfort measures and hospice care. Patient lethargic, not arousable. Moaning. Remains on BiPAP with FiO2 40%. Patient has been evaluated by hospice and will be transitioned to [facility]. Thank you for allowing us to participate in the care of this patient. The impression and plan of care has been dictated by Griselda Seo Nurse Practitioner as directed. Dr. John MD I have performed a history and physical examination and medical decision making of this patient, discussed the same with the dictator, and agree with the dictators assessment and plan as written, documented as a scribe. Based on total visit time, I have performed more than 50% of this visit. Plan - Discharge Summary New Discharge Prescriptions: No Action Gabapentin [Neurontin] 300 mg PO TID Isosorbide Mononitrate [Imdur] 30 mg PO W/LUNCH Atorvastatin [Lipitor] 40 mg PO HS atenoloL [Tenormin] 25 mg PO BID Budesonide-Formot 160-4.5 Mcg [Symbicort 160-4.5 Mcg Inhaler] 2 puff INHALATION RT-BID traMADol HCL [Ultram] 50 mg PO BID Esomeprazole Magnesium [NexIUM] 20 mg PO DAILY Acetaminophen [Tylenol Arthritis] 1,300 mg PO BID Albuterol Sulfate [Proventil Hfa] 1 puff INHALATION RT-Q4H PRN PRN Reason: Shortness Of Breath tiZANidine [Zanaflex] 2 mg PO HS amLODIPine [Norvasc] 5 mg PO DAILY Zolpidem Tartrate [Ambien Cr] 6.25 mg PO HS Multivitamin [Multivitamins Adult Gummies] 2 tab PO DAILY Discharge Medication List Atorvastatin [Lipitor] 40 mg PO HS 06/25/14 [History] Budesonide-Formot 160-4.5 Mcg [Symbicort 160-4.5 Mcg Inhaler] 2 puff INHALATION RT-BID 06/25/14 [History] Gabapentin [Neurontin] 300 mg PO TID 06/25/14 [History] Isosorbide Mononitrate [Imdur] 30 mg PO W/LUNCH 06/25/14 [History] atenoloL [Tenormin] 25 mg PO BID 06/25/14 [History] traMADol HCL [Ultram] 50 mg PO BID 06/24/16 [History] Esomeprazole Magnesium [NexIUM] 20 mg PO DAILY 02/27/17 [History] Acetaminophen [Tylenol Arthritis] 1,300 mg PO BID 10/25/23 [History] Albuterol Sulfate [Proventil Hfa] 1 puff INHALATION RT-Q4H PRN 10/25/23 [History] Multivitamin [Multivitamins Adult Gummies] 2 tab PO DAILY 10/25/23 [History] Zolpidem Tartrate [Ambien Cr] 6.25 mg PO HS 10/25/23 [History] amLODIPine [Norvasc] 5 mg PO DAILY 10/25/23 [History] tiZANidine [Zanaflex] 2 mg PO HS 10/25/23 [History] Follow up Appointment(s)/Referral(s): Alex Ibarra MD [Primary Care Provider] - 1-2 days Discharge Disposition: HOME WITH HOSPICE
== END 2023-11-02 12:00 | disposition hospice, inpatient (51) | DRG 291 ==
LOC: EC 21:03 → 3SCARD 23:06 → OBSVTOIN 10-25 12:39 → 3SCARD 10-25 15:04
PROVIDERS: ADMIT Hospitalist; ATTEND Hospitalist
PROC: 5A09357 Assistance with Respiratory Ventilation, Less than 24 Consecutive Hours, Continuous Positive Airway Pressure (ICD-10-PCS; principal; 2023-10-28)
DX: I11.0 Hypertensive heart disease with heart failure (principal); G93.41 Metabolic encephalopathy; I50.33 Acute on chronic diastolic (congestive) heart failure; J96.21 Acute and chronic respiratory failure with hypoxia; J96.22 Acute and chronic respiratory failure with hypercapnia; J69.0 Pneumonitis due to inhalation of food and vomit; E87.1 Hypo-osmolality and hyponatremia; J45.901 Unspecified asthma with (acute) exacerbation; K51.90 Ulcerative colitis, unspecified, without complications; J44.0 Chronic obstructive pulmonary disease with (acute) lower respiratory infection; J44.1 Chronic obstructive pulmonary disease with (acute) exacerbation; Z87.891 Personal history of nicotine dependence; E78.5 Hyperlipidemia, unspecified; E89.0 Postprocedural hypothyroidism; I08.3 Combined rheumatic disorders of mitral, aortic and tricuspid valves; I25.10 Atherosclerotic heart disease of native coronary artery without angina pectoris; I48.91 Unspecified atrial fibrillation; K59.00 Constipation, unspecified; R13.10 Dysphagia, unspecified; Z51.5 Encounter for palliative care; Z66 Do not resuscitate; Z86.19 Personal history of other infectious and parasitic diseases; Z99.81 Dependence on supplemental oxygen; F41.9 Anxiety disorder, unspecified; G89.29 Other chronic pain; M54.50 Low back pain, unspecified; Z86.16 Personal history of COVID-19; K44.9 Diaphragmatic hernia without obstruction or gangrene; R79.1 Abnormal coagulation profile; K21.9 Gastro-esophageal reflux disease without esophagitis; G62.9 Polyneuropathy, unspecified; Z11.52 Encounter for screening for COVID-19; Z79.51 Long term (current) use of inhaled steroids; Z79.899 Other long term (current) drug therapy; Z88.5 Allergy status to narcotic agent; Z88.0 Allergy status to penicillin; Z88.2 Allergy status to sulfonamides; Z88.8 Allergy status to other drugs, medicaments and biological substances; Z88.6 Allergy status to analgesic agent; Z88.1 Allergy status to other antibiotic agents; Z91.040 Latex allergy status; Z82.49 Family history of ischemic heart disease and other diseases of the circulatory system; Z60.2 Problems related to living alone
CPT/HCPCS: 36415; 36600; 71045; 71046; 71275; 74018; 74176; 80048; 80053; 80202; 81001; 81003; 82805; 83605; 83735; 83880; 84145; 84484; 85025; 85379; 85610; 85730; 87040; 87086; 87636; 93005; 93306; 94640; 94660; 94760; 96374; 96375; 96376; 99285

== ENCOUNTER 2023-11-02 11:41 | Inpatient (IN) | payer MEDICAID ==
[2023-11-02] MEDS ORDERED: ACETAMINOPHEN TAB 325 MG TAB PO PRN (11:50)
[2023-11-02] MEDS ORDERED: DRY MOUTH SPRAY 44.3 SPRAY/44.3 ML SPRAY MUCOUS MEM PRN (11:50)
[2023-11-02] MEDS ORDERED: ONDANSETRON 4 MG/2 ML VIAL IVP PRN (11:50)
[2023-11-02] MEDS ORDERED: ATROPINE OPHTH SOLN 1% 5ML BTL SUBLINGUAL PRN (11:50)
[2023-11-02] MEDS ORDERED: GLYCOPYRROLATE 0.2 MG/ML 2 ML VIAL IVP PRN (11:50)
[2023-11-02] MEDS: MORPHINE SULFATE 4 MG/ML SYRINGE IV PRN (12:25)
[2023-11-02] MEDS: LORazepam 2 MG/ML INJ IV PRN (12:26)
[2023-11-02] MEDS: MORPHINE SULFATE (100 MG/2 ML) 100 MG in SODIUM CHLORIDE 0.9% 100 ML IV SCH (12:46)
[2023-11-02] MEDS: SCOPOLAMINE 1 MG/72 HR PATCH TRANSDERM SCH (16:02)
[2023-11-02 17:11] VITALS: PULSE 103; RESP 13
--- NOTE | 2023-11-02 20:09 | P.HPIM ---
History of Present Illness H&P Date: 11/02/23 Patient is a 88-year-old female admitted to the hospital on 10/29/23 with a past medical history of hypertension, hyperlipidemia, history of COVID-19 infection, valvular heart disease and chronic hypoxic respiratory failure on home oxygen, COPD and current impairment presents to ER with complaints of worsening shortness of breath. Patient was also recently admitted to the hospital at [facility] per septic shock and pneumonia followed by external stay at shelter. Patient presents to the hospital with worsening shortness of breath for the past 4 days. Patient is also having chest tightness/pain with coughing. 2D echocardiogram showed technically difficult study. Normal LV systolic function. Severe mitral annular calcification with mild mitral stenosis, aortic sclerosis with mild to moderate aortic stenosis. Patient had CTA chest showed no CT evidence of acute PE. Bilateral central opacities suggestive of edema/developing acute infiltrates. Suspect fluid overload state. Asymmetric findings in the right upper lobe favor developing acute infiltrate. Patient was diuresed with IV lasix. CT of the abdomen and pelvis was done showed there is moderate distal colonic fecal stasis or constipation. No bowel obstruction. Correlate clinically. Suspect gastritis involving the fundus and body of stomach. Patient with worsening mentation and lethargy. ABGs done showing respiratory acidosis and elevated pCO2 of 90 and pH of 7.23. She was placed on BiPAP and gentle hydration. Given antibiotics for the suspected right lower lobe pneumonia. Not improving on BiPAP. Chest xray on 11/01/23 reveals mild cardiomegaly with prominent coronary vascular markings correlate for CHF. Findings are improved from prior. Patient has normal sodium now 139 with gentle hydration. Renal function showing BUN 38 creatinine 0.50. Patient not improving and family at bedside have decided for comfort measures and hospice care. Patient lethargic, not arousable. Moaning. Remains on BiPAP with FiO2 40%. Patient has been evaluated by hospice and will be transitioned to [facility]. Unable to complete review of systems patient in BiPAP and lethargic. PHYSICAL EXAMINATION: Patient is lying in the bed comfortably, lethargic alert x 1 HEENT: Normocephalic. Neck is supple. Pupils reactive. Nostrils clear. Oral cavity is moist. Neck reveals no JVD, carotid bruits, or thyromegaly. CHEST EXAMINATION: Trachea is central. Symmetrical expansion. Left basilar crackles. Nonlabored breathing.. CARDIAC: Normal S1, S2 with no gallops. No murmurs ABDOMEN: Soft. Bowel sounds present. Nontender. No organomegaly. No abdominal bruits. Extremities: reveal no edema. No clubbing or cyanosis Neurologically unable to full assess mentation. On BiPAP lethargic. Skin: No rash or skin lesions. Psychiatric: Coperative. Nonsuicidal, Musculoskeletal: No joint swelling or deformity. Normal range of motion. Assesment and Plan -Acute on chronic hypoxemic and hypercapnic respiratory failure secondary to Pneumonia and mild CHF exacerbation. ABGs reveal respiratory acidosis patient has been placed back on BiPAP 40% FiO2 with pCO2 of 90. -Right lower lobe pneumonia evidence of density developing in the right lower lobe possible aspiration pneumonia, currently on IV vancomycin as patient does have multiple antibiotic allergies. Procalcitonin level 0.16 not indicative of underlying bacterial pneumonia. Speech therapy has down graded diet. Chest xray improving. -Constipation and fecal stasis resolved treated with laxatives and enemia. Resolved. -Acute on chronic CHF with diastolic dysfunction. was on IV lasix transitioned to oral will place on hold at this time patient will by gently hydrated -Hyponatremia hypovolemic due to poor oral intake. -Metabolic encephalopathy Likely component of CO2 narcosis initially improved now worsening with pCO2 up to 90s with repeat ABGs. Patient has been continued on BiPAP without much improvement per family this has been a slow decline since patient had covid 2 years ago. They are requesting hospice. -Chronic hypoxemic respiratory failure on oxygen at 2 L via nasal cannula since having covid infection 2 years ago. -Hypertension -Hyperlipidemia -Hypothyroidism -History of smoking DVT prophylaxis with heparin subcu GI prophylaxis with Protonix Do Not Resuscitate/Do Not Intubate Patient will be started on hospice end of life care and will be placed on morphine gtt at this time. Family at bedside requesting patient to be read her last rights this was discussed with hospice and clergy will be contacted. The impression and plan of care has been dictated by Griselda Seo Nurse Practitioner as directed. Dr. John MD I have performed a history and physical examination and medical decision making of this patient, discussed the same with the dictator, and agree with the dictators assessment and plan as written, documented as a scribe. Based on total visit time, I have performed more than 50% of this visit. Past Medical History Past Medical History: Asthma, Chest Pain / Angina, GERD/Reflux, Hyperlipidemia, Hypertension, Osteoarthritis (OA), Thyroid Disorder Additional Past Medical History / Comment(s): Palpitations, murmur, sinus tach many years ago, bronchospasms, black mold exposure years ago, gastric ulcer, hiatal hernia, ulcerative colitis, diverticular disease, constipation, hypoglycemia, benign thyroid nodules/partial thyroidectomy, "aortic and R groin blockages", occasional bilateral pedal edema, L shoulder pain/adhesive capsulitis/decreased ROM/ L arm neuropathy, chronic low back pain, septic shock in 2022 History of Any Multi-Drug Resistant Organisms: None Reported Past Surgical History: Breast Surgery, Heart Catheterization, Hysterectomy, Tonsillectomy Additional Past Surgical History / Comment(s): EGD, colonoscopy, partial thyroidectomy, R breast benign lumpectomy, bilateral cataracts removed/lens implants, 04/2020 cardiac cath-treated medically. Past Anesthesia/Blood Transfusion Reactions: Motion Sickness Additional Past Anesthesia/Blood Transfusion Reaction / Comment(s): Pt received blood with childbirth many years ago without reaction. Past Psychological History: Anxiety Additional Psychological History / Comment(s): Pt resides alone in an apartment at [facility]. She uses a walker. She no longer drives, her daughter drives her to appts. She is otherwise independent. Smoking Status: Former smoker Past Alcohol Use History: Rare Additional Past Alcohol Use History / Comment(s): Pt started smoking in 1951 and quit in 2004. she was a light smoker, 3 cigarettes a day. Past Drug Use History: None Reported - Past Family History Daughter(s) Family Medical History: Cancer Father Family Medical History: Diabetes Mellitus Additional Family Medical History / Comment(s): Father developed blindness. Mother Family Medical History: Myocardial Infarction ([place]) Additional Family Medical History / Comment(s): Mother had her first OH at the age of 35-40 yrs old. Son(s) Family Medical History: Coronary Artery Disease (CAD), Myocardial Infarction ([place]) Additional Family Medical History / Comment(s): Son has multiple cardiac stents/CABG and had his first OH in his 40s. Medications and Allergies Home Medications Medication Instructions Recorded Confirmed Type Atorvastatin [Lipitor] 40 mg PO HS 06/25/14 11/02/23 History Budesonide-Formot 160-4.5 Mcg 2 puff INHALATION RT-BID 06/25/14 11/02/23 History [Symbicort 160-4.5 Mcg Inhaler] Gabapentin [Neurontin] 300 mg PO TID 06/25/14 11/02/23 History Isosorbide Mononitrate [Imdur] 30 mg PO W/LUNCH 06/25/14 11/02/23 History atenoloL [Tenormin] 25 mg PO BID 06/25/14 11/02/23 History traMADol HCL [Ultram] 50 mg PO BID 06/24/16 11/02/23 History Esomeprazole Magnesium [NexIUM] 20 mg PO DAILY 02/27/17 11/02/23 History Acetaminophen [Tylenol Arthritis] 1,300 mg PO BID 10/25/23 11/02/23 History Albuterol Sulfate [Proventil Hfa] 1 puff INHALATION RT-Q4H PRN 10/25/23 11/02/23 History Multivitamin [Multivitamins Adult 2 tab PO DAILY 10/25/23 11/02/23 History Gummies] Zolpidem Tartrate [Ambien Cr] 6.25 mg PO HS 10/25/23 11/02/23 History amLODIPine [Norvasc] 5 mg PO DAILY 10/25/23 11/02/23 History tiZANidine [Zanaflex] 2 mg PO HS 10/25/23 11/02/23 History Allergies Allergy/AdvReac Type Severity Reaction Status Date / Time adhesive Allergy developed Verified 10/25/23 07:59 black lump cephalexin Allergy Rash/Hives Verified 10/25/23 07:59 diphenhydramine HCl Allergy "throat Verified 10/25/23 07:59 [From Benadryl] felt like it was closing" ibuprofen Allergy Unknown Verified 10/25/23 07:59 latex Allergy Unknown Verified 10/25/23 07:59 nickel Allergy Rash/Hives Verified 10/25/23 07:59 Penicillins Allergy Itching Verified 10/25/23 07:59 Sulfa (Sulfonamide Allergy Itching Verified 10/25/23 07:59 Antibiotics) codeine AdvReac Nausea & Verified 10/25/23 07:59 Vomiting Physical Exam Vitals: Intake and Output 11/01/23 11/02/23 11/02/23 22:59 06:59 14:59 Other: Weight 64 kg Assessment and Plan Time with Patient: Less than 30
--- NOTE | 2023-11-04 16:27 | P.DS ---
Providers Date of admission: 11/02/23 12:02 Attending physician: Josselin Lopez Primary care physician: Alex Ibarra Hospital Course: Final Diagnosis -Acute on chronic hypoxemic and hypercapnic respiratory failure secondary to Pneumonia and mild CHF exacerbation. BiPAP dependent at this point. -Right lower lobe pneumonia evidence of density developing in the right lower lobe possible aspiration pneumonia, currently on IV vancomycin as patient does have multiple antibiotic allergies. Procalcitonin level 0.16 not indicative of underlying bacterial pneumonia. Speech therapy has down graded diet. -Constipation and fecal stasis resolved treated with laxatives and enemia. Resolved. -Acute on chronic CHF with diastolic dysfunction. was on IV lasix transitioned to oral will place on hold at this time patient will by gently hydrated -Hyponatremia hypovolemic due to poor oral intake. -Metabolic encephalopathy Likely component of CO2 narcosis initially improved now worsening with pCO2 up to 90s with repeat ABGs. Patient has been continued on BiPAP without much improvement per family this has been a slow decline since patient had covid 2 years ago. They are requesting hospice. -Chronic hypoxemic respiratory failure on oxygen at 2 L via nasal cannula since having covid infection 2 years ago. -Hypertension -Hyperlipidemia -Hypothyroidism -History of smoking DVT prophylaxis with heparin subcu GI prophylaxis with Protonix Do Not Resuscitate/Do Not Intubate Patient on 11/02/2023 at 1852 Hospital Course Patient is a 88-year-old female admitted to the hospital on 10/29/23 with a past medical history of hypertension, hyperlipidemia, history of COVID-19 infection, valvular heart disease and chronic hypoxic respiratory failure on home oxygen, COPD and current impairment presents to ER with complaints of worsening shortness of breath. Patient was also recently admitted to the hospital at [facility] per septic shock and pneumonia followed by external stay at care home. Patient presents to the hospital with worsening shortness of breath for the past 4 days. Patient is also having chest tightness/pain with coughing. 2D echocardiogram showed technically difficult study. Normal LV systolic function. Severe mitral annular calcification with mild mitral stenosis, aortic sclerosis with mild to moderate aortic stenosis. Patient had CTA chest showed no CT evidence of acute PE. Bilateral central opacities suggestive of edema/developing acute infiltrates. Suspect fluid overload state. Asymmetric findings in the right upper lobe favor developing acute infiltrate. Patient was diuresed with IV lasix. CT of the abdomen and pelvis was done showed there is moderate distal colonic fecal stasis or constipation. No bowel obstruction. Correlate clinically. Suspect gastritis involving the fundus and body of stomach. Patient with worsening mentation and lethargy. ABGs done showing respiratory acidosis and elevated pCO2 of 90 and pH of 7.23. She was placed on BiPAP and gentle hydration. Given antibiotics for the suspected right lower lobe pneumonia. Not improving on BiPAP. Chest xray on 11/01/23 reveals mild cardiomegaly with prominent coronary vascular markings correlate for CHF. Findings are improved from prior. Patient has normal sodium now 139 with gentle hydration. Renal function showing BUN 38 creatinine 0.50. Patient not improving and family at bedside have decided for comfort measures and hospice care. Patient lethargic, not arousable. Moaning. Remains on BiPAP with FiO2 40%. Patient has been evaluated by hospice and was transitioned to [facility]. Thank you for allowing us to participate in the care of this patient. The impression and plan of care has been dictated by Griselda Seo, Nurse Practitioner as directed. Dr. John MD I have performed a history and physical examination and medical decision making of this patient, discussed the same with the dictator, and agree with the dictators assessment and plan as written, documented as a scribe. Based on total visit time, I have performed more than 50% of this visit. Plan - Discharge Summary New Discharge Prescriptions: No Action Gabapentin [Neurontin] 300 mg PO TID Isosorbide Mononitrate [Imdur] 30 mg PO W/LUNCH Atorvastatin [Lipitor] 40 mg PO HS atenoloL [Tenormin] 25 mg PO BID Budesonide-Formot 160-4.5 Mcg [Symbicort 160-4.5 Mcg Inhaler] 2 puff INHALATION RT-BID traMADol HCL [Ultram] 50 mg PO BID Esomeprazole Magnesium [NexIUM] 20 mg PO DAILY Acetaminophen [Tylenol Arthritis] 1,300 mg PO BID Albuterol Sulfate [Proventil Hfa] 1 puff INHALATION RT-Q4H PRN PRN Reason: Shortness Of Breath tiZANidine [Zanaflex] 2 mg PO HS amLODIPine [Norvasc] 5 mg PO DAILY Zolpidem Tartrate [Ambien Cr] 6.25 mg PO HS Multivitamin [Multivitamins Adult Gummies] 2 tab PO DAILY Discharge Medication List Atorvastatin [Lipitor] 40 mg PO HS 06/25/14 [History] Budesonide-Formot 160-4.5 Mcg [Symbicort 160-4.5 Mcg Inhaler] 2 puff INHALATION RT-BID 06/25/14 [History] Gabapentin [Neurontin] 300 mg PO TID 06/25/14 [History] Isosorbide Mononitrate [Imdur] 30 mg PO W/LUNCH 06/25/14 [History] atenoloL [Tenormin] 25 mg PO BID 06/25/14 [History] traMADol HCL [Ultram] 50 mg PO BID 06/24/16 [History] Esomeprazole Magnesium [NexIUM] 20 mg PO DAILY 02/27/17 [History] Acetaminophen [Tylenol Arthritis] 1,300 mg PO BID 10/25/23 [History] Albuterol Sulfate [Proventil Hfa] 1 puff INHALATION RT-Q4H PRN 10/25/23 [History] Multivitamin [Multivitamins Adult Gummies] 2 tab PO DAILY 10/25/23 [History] Zolpidem Tartrate [Ambien Cr] 6.25 mg PO HS 10/25/23 [History] amLODIPine [Norvasc] 5 mg PO DAILY 10/25/23 [History] tiZANidine [Zanaflex] 2 mg PO HS 10/25/23 [History] Discharge Disposition: - Preliminary Cause of Preliminary Cause of : Pneumonia and COPD oxygen dependent
== END 2023-11-02 21:18 | disposition expired | DRG 951 ==
LOC: 3SCARD 12:02
PROVIDERS: ADMIT Internal Medicine; ATTEND Internal Medicine
DX: Z51.5 Encounter for palliative care (principal); J96.01 Acute respiratory failure with hypoxia; J96.02 Acute respiratory failure with hypercapnia; J69.0 Pneumonitis due to inhalation of food and vomit; G93.41 Metabolic encephalopathy; I50.33 Acute on chronic diastolic (congestive) heart failure; E87.29 Other acidosis; K51.90 Ulcerative colitis, unspecified, without complications; J44.0 Chronic obstructive pulmonary disease with (acute) lower respiratory infection; E87.0 Hyperosmolality and hypernatremia; E87.20 Acidosis, unspecified; E87.1 Hypo-osmolality and hyponatremia; E78.5 Hyperlipidemia, unspecified; F41.9 Anxiety disorder, unspecified; I10 Essential (primary) hypertension; I34.81 Nonrheumatic mitral (valve) annulus calcification; I70.0 Atherosclerosis of aorta; J44.89 Other specified chronic obstructive pulmonary disease; K59.00 Constipation, unspecified; E86.1 Hypovolemia; K21.9 Gastro-esophageal reflux disease without esophagitis; M19.90 Unspecified osteoarthritis, unspecified site; Z79.51 Long term (current) use of inhaled steroids; Z77.120 Contact with and (suspected) exposure to mold (toxic); Z79.899 Other long term (current) drug therapy; Z82.49 Family history of ischemic heart disease and other diseases of the circulatory system; Z87.11 Personal history of peptic ulcer disease; Z87.891 Personal history of nicotine dependence; Z90.710 Acquired absence of both cervix and uterus; Z96.1 Presence of intraocular lens; Z99.81 Dependence on supplemental oxygen; Z86.16 Personal history of COVID-19; Z88.1 Allergy status to other antibiotic agents; Z88.8 Allergy status to other drugs, medicaments and biological substances; Z98.49 Cataract extraction status, unspecified eye; Z79.890 Hormone replacement therapy